=== PATIENT | female | born 1950 | race Caucasian/White ===

== ENCOUNTER 2025-03-09 09:19 | Emergency (ER) | payer MEDICARE, MEDICAID, SELFPAY ==
[2025-03-09] VITALS (7 sets, daily range): BP systolic 121–133; BP diastolic 47–93; BMI 22.9
--- NOTE | 2025-03-09 09:41 | ED.GENMED ---
History of Present Illness
<Rufus Isidro MD, Resident - Last Filed: 03/09/25 16:23>
General
Chief Complaint: Swelling
Source: patient and records
Exam Limitations: none
Time Seen by Provider: 03/09/25 09:36
Nursing documentation reviewed up to this point in time: agreed with
Travel History
Have you traveled to any high risk areas for coronavirus over the past 14 days?: No
Have you had any contact with someone who has COVID-19?: No
Do you have any symptoms of coronavirus? Fever > 100 degrees, chills, cough, shortness of breath, sore throat, loss of taste or smell, muscle aches, or headache?: No
History of Present Illness
History of Present Illness:
74-year-old female presenting from [facility] with complaints of pain and swelling of right leg and foot which started 3 to 4 days ago per patient. Patient states that pain only comes when she tries to move the leg or when someone touches it and
pain is 5�6/10. There is no alleviating factors. She said she walks with the help usually however for past 3 to 4 days she has that pain and developed swelling and the facility was concerned that she might have a clot in her leg.
Off note she is on a dialysis schedule Sunday and Sunday she did not get the dialysis today yet.
If applicable-neuro sx onset
Onset of symptoms known: Yes
Date of onset of symptoms: 03/06/25
Time pt last seen normal is known: No
Past History
<Rufus Isidro MD, Resident - Last Filed: 03/09/25 16:23>
Past History
ED Past Medical History: CAD, CHF, IDDM and Hypothyroidism
ED Past Surgical History: Cardiac (cardiac transplant 2016) and Other (Gallbladder, pacemaker, LVAD, heart transplant)
Patient has exhibited threatening behavior?: No
Social History
Tobacco: Non-smoker
Alcohol: None
Drug: None
Living: [facility]
Review of Systems
<Rufus Isidro MD, Resident - Last Filed: 03/09/25 16:23>
Review of Systems
Constitutional: Reports no symptoms
EENT: Reports no symptoms
Respiratory: Reports no symptoms
Cardiac: Reports no symptoms
ABD/GI: Reports no symptoms
Musculoskeletal: Reports muscle pain (Right lower leg) and muscle stiffness (Right lower leg)
Skin: Reports itching (Right lower leg)
Neurological: Reports no symptoms
Hematologic/Lymphatic: Reports no symptoms
Psychiatric: Reports no symptoms
Phy Exam
<Rufus Isidro MD, Resident - Last Filed: 03/09/25 16:23>
General Physical Exam
General Presentation: mild distress
General age: appears stated age
General Skin: warm
General Habitus: elderly
General Mental: alert
General Hydration: appears well hydrated
Cardiovascular Exam
Cardiovascular Exam: regular rate/rhythm and no murmur
Neurological Exam
Neurological Exam: alert, no sensory deficits and speech normal
Musculoskeletal Exam
Musculoskeletal Exam: other (Right leg swelling and erythema below knee. Pulses intact)
Scores
<Rufus Isidro MD, Resident - Last Filed: 03/09/25 16:23>
Heart Failure Risk
Heart Failure Risk Score: Not Applicable
Course
<Rufus Isidro MD, Resident - Last Filed: 03/09/25 16:23>
Orders/Labs/Results
Orders:
Orders
03/09/25 10:01
US Legs, Right [US Periph Venous LOWER Ext RT] Urgent
Comment:
Reason For Exam: Swelling + pain
03/09/25 10:24
CRP [C-Reactive Protein] Urgent
Complete Blood Count/With Diff Urgent
Comprehensive Metabolic Panel Urgent
ESR [Erythrocyte Sed Rate] Urgent
Abnormal Lab Results
03/09/25
10:24
RBC 3.97 L 10^6/uL
(4.20-5.40)
MCHC 31.5 L g/dL
(33.0-37.0)
RDW 16.2 H %
(11.5-14.5)
MPV 11.5 H fL
(7.4-10.4)
Absolute Lymphs (auto) 0.9 L 10^3/uL
(1.2-3.4)
Lymphocytes % 13.6 L %
(20.5-51.1)
Eosinophils % 9.1 H %
(0-6)
Potassium 5.2 H mmol/L
(3.5-5.1)
Carbon Dioxide 19 L mmol/L
(22-30)
BUN 84 H mg/dl
(7-17)
Creatinine 6.2 H* mg/dL
(0.6-1.0)
Calcium 7.8 L mg/dl
(8.4-10.2)
Alkaline Phosphatase 134 H U/L
(38-126)
C-Reactive Protein 15.00 H mg/L
(0.0-10.00)
03/09/25 10:24
03/09/25 10:24
Vital Signs
Initial and Last Documented VS:
Initial Vital Signs
Temp Pulse Resp BP Pulse Ox
97.9 F 85 20 133/87 97
03/09/25 09:21 03/09/25 09:21 03/09/25 09:21 03/09/25 09:21 03/09/25 09:21
Last Documented Vital Signs
Temp Pulse Resp BP Pulse Ox
98.5 F 75 16 121/74 100
03/09/25 10:38 03/09/25 14:01 03/09/25 10:38 03/09/25 14:01 03/09/25 12:00
<Denis Willoughby, DO - Last Filed: 03/09/25 13:39>
Orders/Labs/Results
Orders:
Orders
03/09/25 10:01
US Legs, Right [US Periph Venous LOWER Ext RT] Urgent
Comment:
Reason For Exam: Swelling + pain
03/09/25 10:24
CRP [C-Reactive Protein] Urgent
Complete Blood Count/With Diff Urgent
Comprehensive Metabolic Panel Urgent
ESR [Erythrocyte Sed Rate] Urgent
Abnormal Lab Results
03/09/25
10:24
RBC 3.97 L 10^6/uL
(4.20-5.40)
MCHC 31.5 L g/dL
(33.0-37.0)
RDW 16.2 H %
(11.5-14.5)
MPV 11.5 H fL
(7.4-10.4)
Absolute Lymphs (auto) 0.9 L 10^3/uL
(1.2-3.4)
Lymphocytes % 13.6 L %
(20.5-51.1)
Eosinophils % 9.1 H %
(0-6)
Potassium 5.2 H mmol/L
(3.5-5.1)
Carbon Dioxide 19 L mmol/L
(22-30)
BUN 84 H mg/dl
(7-17)
Creatinine 6.2 H* mg/dL
(0.6-1.0)
Calcium 7.8 L mg/dl
(8.4-10.2)
Alkaline Phosphatase 134 H U/L
(38-126)
C-Reactive Protein 15.00 H mg/L
(0.0-10.00)
03/09/25 10:24
03/09/25 10:24
Vital Signs
Initial and Last Documented VS:
Initial Vital Signs
Temp Pulse Resp BP Pulse Ox
97.9 F 85 20 133/87 97
03/09/25 09:21 03/09/25 09:21 03/09/25 09:21 03/09/25 09:21 03/09/25 09:21
Last Documented Vital Signs
Temp Pulse Resp BP Pulse Ox
98.5 F 75 16 121/74 100
03/09/25 10:38 03/09/25 14:01 03/09/25 10:38 03/09/25 14:01 03/09/25 12:00
<Rufus Isidro MD, Resident - Last Filed: 03/09/25 16:23>
MDM/Problems Addressed
Differential Diagnosis Includes:
DVT vs cellulitis vs less likely compartment syndrome
MDM/Problems Addressed:
Peripheral vascular ultrasound negative for DVT. Right femoral venous catheter in expected position. Labs with normal WBC 6 and normal ESR. CMP with potassium of 5.2 and creatinine of 6.2 with BUN 84. Patient gets routine dialysis Sunday
Sunday and Sunday she was scheduled for dialysis today. CRP is raised to 15. Unclear cause. She does not report any excessive pain. Pulses intact.
Given her schedule for dialysis today spoke with [facility] dialysis unit and they informed me they can do it today if the patient arrives by 3 PM. They do not do dialysis on Tuesdays.
Likely her swelling and pain is related to cellulitis of the right leg. Will prescribe Keflex upon discharge
<Rufus Isidro MD, Resident - Last Filed: 03/09/25 16:23>
*Radiology
Radiology exam reviewed: radiology read reviewed
*Pulse Oximetry
SaO2: 97
Oxygen Mode of Delivery: Room air
Patient hypoxic: no
*Critical Care Note
Total Time (30-74mins, 75-104mins- exclusive of procedures): Not Applicable
ED Attending Note
<Rufus Isidro MD, Resident - Last Filed: 03/09/25 16:23>
-
Portions of this chart may have been created with voice recognition software.� Occasional wrong word or��sound alike� substitutions may have occurred due to the inherent limitations of voice recognition software.
<Denis Willoughby, - Last Filed: 03/09/25 13:39>
ED Attending Note
Patient seen and examined by attending physician: Yes
I performed a history and physical exam of patient and discussed management with resident, I reviewed resident's note and agree with documented findings and plan of care.: Yes
ED Attending Note:
I have reviewed and agree with history and treatment plan by Rufus Isidro MD. My exam revealed 74-year-old female with right lower leg erythema and swelling. Likely cellulitis. Labs and ultrasound pending. Doppler pulses found and dorsalis
pedis posterior tibialis. Patient with mild right lower leg cellulitis. Treat with Keflex 250 mg daily, renally dosed. Stable for discharge to [facility] where she will dialysis today.
Discharge Plan
Departure
Patient Disposition: Halfway/SNF
Date of Disposition: 03/09/25
Time of Disposition: 12:50
Patient with high blood pressure during this ER visit?: Yes
Covid-19: Not Applicable
Discharge Problem:
Cellulitis
Instructions: Dependent Edema (DC), *CBC Heart Failure Instructions, BLOOD PRESSURE
Prescriptions:
New
cephalexin 250 mg tablet
250 mg PO DAILY Qty: 7 0RF
No Action
aspirin 81 MG tablet,delayed release (DR/EC)
81 mg PO DAILY
ferrous sulfate [FeroSul] 325 MG tablet
325 mg PO QPM
levothyroxine 125 MCG tablet
125 mcg PO DAILY
pravastatin 20 MG tablet
40 mg PO HS
multivitamin with folic acid [Tab-A-Henry] 1 TABLET tablet
1 tab PO DAILY
ropinirole 2 MG tablet
2 mg PO HS
acetaminophen [Tylenol] 325 mg Tablet
650 mg PO Q6HPRN PRN (Reason: MILD PAIN)
ammonium lactate 12 % Lotion
1 applic TOPICAL BID
loperamide 2 mg Capsule
2 mg PO Q6HPRN PRN (Reason: DAIRRHEA)
ondansetron HCl [Zofran] 4 mg Tablet
4 mg PO Q8HPRN PRN (Reason: NAUSEA)
midodrine 5 mg Tablet
5 mg PO TID
Tums 300 mg (750 mg) Tablet,Chewable
300 mg PO AC
Tums 300 mg (750 mg) Tablet,Chewable
600 mg PO HS
acetaminophen [Tylenol Arthritis] 650 mg Tablet Extended Release
650 mg PO Q8HPRN PRN (Reason: KNEE PAINS)
sirolimus 1 mg Tablet
1 mg PO HS
bisacodyl [Dulcolax (bisacodyl)] 10 mg Suppository
10 mg [place] DAILYPRN PRN (Reason: IF NO BM AFTR MOM)
omeprazole 20 mg Capsule,Delayed Release(Dr/Ec)
20 mg PO DAILY
bisacodyl [Dulcolax (bisacodyl)] 5 mg Tablet,Delayed Release (Dr/Ec)
5 mg PO DAILYPRN PRN (Reason: CONSTIPATION)
tacrolimus 0.5 mg Capsule
0.5 mg PO DAILY
cholecalciferol (vitamin D3) [Vitamin D3] 25 mcg (1,000 unit) Tablet
50 mcg PO DAILY
Entresto 24-26 mg Tablet
1 tab PO BID
calcium acetate 667 mg Tablet
667 mg PO AC
Referrals:
UNKNOWN,NO INTERVIEW [Family Provider]
Interventions
Interventions:
*Risk Screen - Suicide Last Done: 03/09/25 09:21
*General Assessment Last Done: 03/09/25 09:21
*Neglect/Abuse Screening Last Done: 03/09/25 09:21
*ED- Fall Risk Assessment Last Done: 03/09/25 10:39
*ED COVID-19 Vaccine History Last Done: 03/09/25 10:39
*Nursing Disposition Last Done: 03/09/25 13:55
ED- Cardiac Assessment Last Done: 03/09/25 10:39
ED- Pulmonary Assessment Last Done: 03/09/25 10:39
ED-Skin Assessment Last Done: 03/09/25 10:39
Discharge Date and Time
Discharge Date/Time: 03/09/25 14:12
Print Language: [place]
[2025-03-09 11:27] LABS: % Basophils 0.7 % (0-2); % Eosinophils 9.1 % (0-6); % Immature Granulocytes 0.3 % (0-0.5); % Lymphocytes 13.6 % (20.5-51.1); % Monocytes 8.1 % (1.7-9.3); % Neutrophils 68.2 % (42.2-75.2); Absolute Basophils 0.1 10^3/uL (0-0.2); Absolute Eosinophils 0.6 10^3/uL (0-0.7); Absolute Lymphocytes 0.9 10^3/uL (1.2-3.4); Absolute Monocytes 0.5 10^3/uL (0.1-0.6); Absolute Neutrophils 4.6 10^3/uL (1.4-6.5); Hemoglobin 12.3 g/dL (12.0-16.0); Mean Corp Hgb Conc. 31.5 g/dL (33.0-37.0); Mean Corpuscular Volume 98.2 fL (81.0-99.0); Mean Platelet Volume 11.5 fL (7.4-10.4); Nucleated Red Blood Cells % 0 %; Platelet Count 161 10^3/uL (130-400); Red Blood Cell Count 3.97 10^6/uL (4.20-5.40); Red Cell Dist. Width 16.2 % (11.5-14.5); White Blood Cell Count 6.7 10^3/uL (4.8-10.8)
[2025-03-09 12:00] LABS: ALT (SGPT) 18 U/L (0-35); AST (SGOT) 20 U/L (14-36); Albumin 4.1 g/dl (3.5-5.0); Alkaline Phosphatase 134 U/L (38-126); Blood Urea Nitrogen 84 mg/dl (7-17); Calcium 7.8 mg/dl (8.4-10.2); Carbon Dioxide 19 mmol/L (22-30); Chloride 103 mmol/L (98-107); Estimated Creatinine Clearance 7 ml/min; Glucose 83 mg/dl (70-99); Potassium 5.2 mmol/L (3.5-5.1); Sodium 139 mmol/L (135-145); Total Bilirubin 0.6 mg/dl (0.2-1.3); Total Protein 6.9 g/dl (6.3-8.2); eGFR 6.58
[2025-03-09 12:29] LABS: Erythrocyte Sed Rate 6 mm/hour (0-20)
--- NOTE | 2025-03-09 13:54 | EDRN ---
this RN called Theresa Duarte at [facility] at [phone] and spoke to Olivia at the nurses station and gave verbal report
--- NOTE | 2025-03-09 14:10 | EDRN ---
the pt had a bowel movement and this RN cleaned the pt up and placed a new covidian pad underneath the pt, this RN offered the pt food and the pt declined and stated that she wanted to eat when she got back to [place]
== END 2025-03-09 14:12 ==
LOC: EMR 09:19
PROVIDERS: EMERGENCY PHYSICIAN Emergency Medicine
DX: L03.115 Cellulitis of right lower limb (principal); I25.10 Atherosclerotic heart disease of native coronary artery without angina pectoris; I50.9 Heart failure, unspecified; E03.9 Hypothyroidism, unspecified; E11.9 Type 2 diabetes mellitus without complications; Z79.4 Long term (current) use of insulin; Z94.1 Heart transplant status; Z99.2 Dependence on renal dialysis
CPT/HCPCS: 99284; 80053; 85025; 85652; 86140; 93971

== ENCOUNTER 2025-03-20 16:29 | Inpatient (IN) | payer MEDICARE, MEDICAID, SELFPAY ==
[2025-03-20] VITALS (7 sets, daily range): BP systolic 101–150; BP diastolic 53–92; BMI 25.5
--- NOTE | 2025-03-20 12:01 | ED.GENMED ---
History of Present Illness
General
Chief Complaint: Skin Problem
Source: patient
Time Seen by Provider: 03/20/25 11:41
History of Present Illness
History of Present Illness:
Note:
CHIEF COMPLAINT(S)
Confusion and right lower extremity swelling, redness, pain, and blistering.
HISTORY OF PRESENT ILLNESS
The patient is a 74-year-old female with a Luan dialysis catheter in the right groin, presenting with confusion and a swollen, painful right lower extremity. She reports the leg has been swollen and painful for 'a good while' and has remained the
same for the past week without episodes of improvement. She denies any fever. There is associated redness and swelling, with a blister noted on the medial aspect of the right lower extremity. The patient experiences sensitivity to touch and warmth
in the affected area. The patient undergoes dialysis sessions on Sunday, Sunday, and Sunday.
ADDITIONAL HISTORY OBTAINED FROM SOURCES OTHER THAN THE PATIENT
According to the retirement records, the patient has experienced a change in mental status characterized by intermittent confusion and hallucinations. They also noted right lower extremity pain, redness, swelling, blisters, warmth to the touch,
and difficulty palpating pulse.
PHYSICAL EXAM
General: Awake, alert, slightly confused, no respiratory distress.
Skin: The right lower extremity shows swelling, redness most severe in the lower portion, warmth, and sensitivity to touch. A blister is noted on the medial aspect. There is pitting edema throughout the right lower extremity. HD catheter noted in R
groin.
Cardiovascular: Pulses are unable to be palpated in the right lower extremity.
Neuro: CN's intact. slightly confused.
PLAN
Evaluate the swelling, redness, warmth, and pain in the right lower extremity with appropriate imaging or tests to rule out potential causes such as deep vein thrombosis or infection.
Monitor the patient�s mental status and manage any causes of confusion.
Continue current dialysis schedule and monitor the status of the dialysis catheter site.
Review and adjust medications as necessary based on labs and clinical status.
DIFFERENTIAL DIAGNOSIS
The Differential Diagnosis includes, in no particular order and is not limited to:
1. Deep vein thrombosis
2. Cellulitis
3. Catheter-related infection
4. Chronic venous insufficiency
5. Lymphedema
6. Heart failure exacerbation
7. Peripheral artery disease
8. Erythema nodosum
9. Drug reaction
10. Necrotizing fasciitis
Disposition:
SUMMARY OF ENCOUNTER
A 74-year-old female with a history of heart transplant and diabetes presented to the emergency department with a red, swollen right lower extremity. She was recently started on antibiotics, but her symptoms persisted. She is afebrile, but given her
immunosuppressed and diabetic status, there is a concern for infection, particularly as the symptoms are on the same side as her dialysis catheter.
DISPOSITION
Admit
ASSESSMENT
The patient presents with symptoms concerning for infection, possibly cellulitis or an infection related to the dialysis catheter, given the persistent swelling and redness of the right lower extremity.
Old records reviewed
Ultrasound from March 09, 2025 showed no DVT.
EMERGENCY TREATMENTS ADMINISTERED
Intravenous vancomycin was administered for suspected infection.
MEDICAL DECISION MAKING
-Number and Complexity of Problems Addressed: Chronic conditions affecting care include heart transplant and diabetes mellitus.
-Differential Diagnosis: Cellulitis, catheter-related infection, chronic venous insufficiency, lymphedema, heart failure exacerbation, peripheral artery disease, erythema nodosum, drug reaction, necrotizing fasciitis.
-Data:
Category 1
Non-emergency department records reviewed, including outpatient and prior medical history.
Category 2
Clinical information obtained from independent historian(s) and external records.
-Risk:
Prescription medication was administered and prescribed due to the risk of infection given the patients immunosuppressed status. Admission was necessary to manage and closely monitor for potential complications.
DIAGNOSIS
- Infection associated with dialysis catheter, ICD-10: T82.7XXA
- Cellulitis, ICD-10: L03.115
Past History
Past History
ED Past Medical History: CAD, CHF, IDDM and Hypothyroidism
ED Past Surgical History: Cardiac (cardiac transplant 2016) and Other (Gallbladder, pacemaker, LVAD, heart transplant)
Patient has exhibited threatening behavior?: No
Social History
Tobacco: Non-smoker
Alcohol: None
Drug: None
Living: retirement
Phy Exam
Physical Exam
Physical Exam:
.
Course
Orders/Labs/Results
Orders:
Orders
03/20/25 11:47
Complete Blood Count/With Diff Urgent
Comprehensive Metabolic Panel Urgent
03/20/25 12:00
Lactic Acid Q4H
Comment: CANCEL 2nd LACTIC ACID IF 1st LACTIC ACID IS LESS THAN 2
03/20/25 12:30
Blood Culture Q30M
ELIZABETH Source: Blood/Venous
Specimen Description:
03/20/25 13:11
Blood Culture Q30M
ELIZABETH Source: Blood/Venous
Specimen Description:
03/20/25 14:06
Vancomycin 1 Gram/200 ml [Vancocin] 1 gram in 200 ml IV NOW
03/20/25 14:12
US Periph Venous LOWER Ext RT Urgent
Comment:
Reason For Exam: swelling
03/20/25 16:00
Lactic Acid Q4H
Comment: CANCEL 2nd LACTIC ACID IF 1st LACTIC ACID IS LESS THAN 2
Abnormal Lab Results
03/20/25
11:47
RBC 3.78 L 10^6/uL
(4.20-5.40)
Hgb 11.4 L g/dL
(12.0-16.0)
Hct 36.9 L %
(37.0-47.0)
MCHC 30.9 L g/dL
(33.0-37.0)
RDW 16.0 H %
(11.5-14.5)
MPV 10.8 H fL
(7.4-10.4)
Absolute Lymphs (auto) 1.0 L 10^3/uL
(1.2-3.4)
Absolute Monos (auto) 0.7 H 10^3/uL
(0.1-0.6)
Lymphocytes % 14.2 L %
(20.5-51.1)
Eosinophils % 6.2 H %
(0-6)
Carbon Dioxide 17 L mmol/L
(22-30)
BUN 55 H mg/dl
(7-17)
Creatinine 4.4 H* mg/dL
(0.6-1.0)
Calcium 7.9 L mg/dl
(8.4-10.2)
03/20/25 11:47
03/20/25 11:47
Vital Signs
Initial and Last Documented VS:
Initial Vital Signs
Temp Pulse Resp BP Pulse Ox
97.5 F 87 18 125/84 96
03/20/25 11:35 03/20/25 11:35 03/20/25 11:35 03/20/25 11:35 03/20/25 11:35
Last Documented Vital Signs
Temp Pulse Resp BP Pulse Ox
97.5 F 87 18 125/84 96
03/20/25 11:35 03/20/25 11:35 03/20/25 11:35 03/20/25 11:35 03/20/25 12:01
*Pulse Oximetry
SaO2: 96
Oxygen Mode of Delivery: Room air
Patient hypoxic: no
*Critical Care Note
Total Time (30-74mins, 75-104mins- exclusive of procedures): Not Applicable
ED Attending Note
-
Portions of this chart may have been created with voice recognition software.� Occasional wrong word or��sound alike� substitutions may have occurred due to the inherent limitations of voice recognition software.
Discharge Plan
Departure
Patient Disposition: Admit
Date of Disposition: 03/20/25
Time of Disposition: 14:05
Admit to: Med/Surg
Presentation/result/management discussed w/ accepting MD/DO: Hospitalist
Discharge Problem:
Cellulitis, immunosuppressed state
Prescriptions:
No Action
aspirin 81 MG tablet,delayed release (DR/EC)
81 mg PO DAILY
ferrous sulfate [FeroSul] 325 MG tablet
325 mg PO QPM
levothyroxine 125 MCG tablet
125 mcg PO DAILY
pravastatin 20 MG tablet
40 mg PO HS
multivitamin with folic acid [Tab-A-Henry] 1 TABLET tablet
1 tab PO DAILY
ropinirole 2 MG tablet
2 mg PO HS
acetaminophen [Tylenol] 325 mg Tablet
650 mg PO Q6HPRN PRN (Reason: MILD PAIN)
ammonium lactate 12 % Lotion
1 applic TOPICAL BID
loperamide 2 mg Capsule
2 mg PO Q6HPRN PRN (Reason: DAIRRHEA)
ondansetron HCl [Zofran] 4 mg Tablet
4 mg PO Q8HPRN PRN (Reason: NAUSEA)
midodrine 5 mg Tablet
5 mg PO TID
Tums 300 mg (750 mg) Tablet,Chewable
300 mg PO AC
Tums 300 mg (750 mg) Tablet,Chewable
600 mg PO HS
acetaminophen [Tylenol Arthritis] 650 mg Tablet Extended Release
650 mg PO Q8HPRN PRN (Reason: KNEE PAINS)
sirolimus 1 mg Tablet
1 mg PO HS
bisacodyl [Dulcolax (bisacodyl)] 10 mg Suppository
10 mg [place] DAILYPRN PRN (Reason: IF NO BM AFTR MOM)
omeprazole 20 mg Capsule,Delayed Release(Dr/Ec)
20 mg PO DAILY
bisacodyl [Dulcolax (bisacodyl)] 5 mg Tablet,Delayed Release (Dr/Ec)
5 mg PO DAILYPRN PRN (Reason: CONSTIPATION)
tacrolimus 0.5 mg Capsule
0.5 mg PO DAILY
cholecalciferol (vitamin D3) [Vitamin D3] 25 mcg (1,000 unit) Tablet
50 mcg PO DAILY
Entresto 24-26 mg Tablet
1 tab PO BID
calcium acetate 667 mg Tablet
667 mg PO AC
Referrals:
Francisco Pickard MD [Family Provider, Family Practice]
Interventions
Interventions:
*Risk Screen - Suicide Last Done: 03/20/25 11:36
*Neglect/Abuse Screening Last Done: 03/20/25 11:36
Discharge Date and Time
Print Language: SWAZI
[2025-03-20 12:04] LABS: Hematocrit 36.9 % (37.0-47.0); Hemoglobin 11.4 g/dL (12.0-16.0); Mean Corp Hgb Conc. 30.9 g/dL (33.0-37.0); Mean Corpuscular Volume 97.6 fL (81.0-99.0); Nucleated Red Blood Cells % 0 %; Platelet Count 182 10^3/uL (130-400); Red Cell Dist. Width 16.0 % (11.5-14.5)
[2025-03-20 12:32] LABS: ALT (SGPT) 14 U/L (0-35); AST (SGOT) 19 U/L (14-36); Albumin 4.0 g/dl (3.5-5.0); Alkaline Phosphatase 119 U/L (38-126); Blood Urea Nitrogen 55 mg/dl (7-17); Calcium 7.9 mg/dl (8.4-10.2); Carbon Dioxide 17 mmol/L (22-30); Chloride 107 mmol/L (98-107); Glucose 92 mg/dl (70-99); Potassium 5.0 mmol/L (3.5-5.1); Sodium 139 mmol/L (135-145); Total Protein 7.1 g/dl (6.3-8.2); eGFR 9.93
--- NOTE | 2025-03-20 15:35 | CM ---
CM reviewed chart and met with pt bedside in ED. Pt currently resides at [facility] since 03/06/25, was admitted from [facility].
Pt needs assistance with ADLs and personal care. [facility] bedbound[facility].
PCP: Francisco Pickard
Pharmacy: [facility]
CM will continue to follow for discharge planning needs.
[2025-03-20] MEDS: VANCOCIN 530 MG IV (16:16)
--- NOTE | 2025-03-20 17:14 | HPS.HSE ---
Addendum entered and electronically signed by Deuce Nation MD 03/20/25 21:58:
Attending Addendum-
I performed a history and physical exam of the patient and discussed his management with the resident. I reviewed the resident's note and agree with the documented findings and plan of care CC/HPI- Sent o ED from [facility] secondary to RLE
swelling redness and confusion prior to getting dialysis. S/P treatment of presumed cellulitis with Keflex after negative US for DVT on 03/09 in ED. Patient complains of mild pain in RLE. Very pleasant but poor historian. Denies fevers chills NV abd
pain urinary complaints. Full 12 point ROS reviewed and negative except as documented Exam- vitals reviewed in EMR GEN-NAD Heart 11/13 SM @ RUSB Lungs fine crackles at bases abd soft NT ND pos BS Ext RLE- red not warm pulses intact Right groin -
dialysis catheter in place Neuro AAO x 2
Plan:
# Right LE DVT- catheter associated
- RLE US-Nonocclusive thrombus is present within the right common femoral vein in the visualized profunda femoris vein. There is nonocclusive thrombus within the mid to distal right femoral vein.
-Nonocclusive thrombus within the right peroneal and posterior tibial veins.
-start hep gtt - monitor aPtt
-c/s IR for eval- will keep catheter in for now as this is patients only HD access
# ESRD
- MWF
-c/s nephro for eval
-missed HD 03/20
# H/O IDDM
- previous documentation with insulin on med list
- will need updated history and med list from facility
- check HBa1c
- start low dose SSI
# H/O Heart Transplant
- cont sirolimus and tacrolimus
- t/c checking levels after obtaining more info
# RLS- cont ropinirole
# Hypothyroidism- cont levothyroxine
# ?CHF- not in AE- cont Entresto- no previous ECHO in system
# CAD- cont asa statin
# GERD- cont omeprazole
DVTp-heparin
CODE DNR
[facility]
Patient consented to discuss, was alone, time spent explanation of advance directives, changes in health status, patient�s health care wishes if the patient becomes unable to make health decisions, goals of care, code status, and prognosis- 16
minutes
Time spent coordinating care, review of plan of care with resident, personally reviewed previous records in EMR, med rec, labs, radiology, d/w nursing, family total time documented is exclusive of any additional time listed that was spent in advance
care planning discussion -�75 minutes
Original Note:
Family Physician
-
Family Physician: Francisco Pickard MD
Chief Complaint
-
Right lower extremity pain
History of Present Illness
Patient presented to the emergency department with progressive pain and swelling of her right calf and foot. Patient states the pain and swelling has been ongoing intermittently for approximately 3 or 4 weeks. Patient is barely walking due to the
pain. The pain is limited to the patient's leg and does not radiate elsewhere. Patient [facility], but she is not certain. Patient denies any recent trauma, cuts, wounds, bug
bites on her right lower extremity.
Medical History
Past Medical History
Past Medical History: Reports CAD, CHF, Hypothyroidism, NIDDM and Renal Failure (HD MWF)
Past Surgical History: Reports Cardiac (Heart transplant (2017); pacemaker; LVAD) and Cholecystectomy
Social History
Tobacco: Non-smoker
Alcohol: Occasional (2-3 drinks per year)
Drug: None
Living: Retirement
Family History
Family History: Other (Heart failure-father)
Allergies / Home Medications
Allergies reflects when Allergies were last updated in [facility].
Home Medications with original date entered in [facility]
Allergy/Medication List:
Allergies
Allergy/AdvReac Type Severity Reaction Status Date / Time
MEERA Inhibitors Allergy Unknown Verified 03/20/25 14:08
Beta-Blockers Allergy Unknown Verified 03/20/25 14:08
(Beta-Adrenergic Bloc
carvedilol (From Coreg) Allergy Unknown Verified 03/20/25 14:08
hydralazine Allergy Unknown Verified 03/20/25 17:41
Home Medications
aspirin 81 mg tablet,delayed release 81 mg PO DAILY 06/07/19
ferrous sulfate 325 mg (65 mg iron) tablet (FeroSul) 325 mg PO QPM 06/07/19
levothyroxine 125 mcg tablet 125 mcg PO DAILY 06/07/19
multivitamin with folic acid 400 mcg tablet (Tab-A-Henry) 1 tab PO DAILY 06/07/19
pravastatin 20 mg tablet 40 mg PO HS 06/07/19
ropinirole 2 mg tablet 2 mg PO HS 06/07/19
acetaminophen 325 mg tablet (Tylenol) 650 mg PO Q6HPRN PRN MILD PAIN 03/09/25
acetaminophen 650 mg tablet,extended release 650 mg PO Q8HPRN PRN KNEE PAINS 03/09/25
ammonium lactate 12 % lotion 1 applic topical BID B/L FEET 03/09/25
bisacodyl 10 mg rectal suppository (Dulcolax (bisacodyl)) 10 mg MI DAILYPRN PRN IF NO BM AFTR MOM 03/09/25
bisacodyl 5 mg tablet,delayed release (Dulcolax (bisacodyl)) 5 mg PO DAILYPRN PRN CONSTIPATION 03/09/25
calcium acetate 667 mg tablet 667 mg PO AC 03/09/25
calcium carbonate (Tums) 300 mg PO AC 03/09/25
calcium carbonate (Tums) 600 mg PO HS 03/09/25
cholecalciferol (vitamin D3) 25 mcg (1,000 unit) tablet (Vitamin D3) 50 mcg PO DAILY 03/09/25
loperamide 2 mg capsule 2 mg PO Q6HPRN PRN DAIRRHEA 03/09/25
midodrine 5 mg tablet 5 mg PO TID 03/09/25
omeprazole 20 mg capsule,delayed release 20 mg PO DAILY 03/09/25
ondansetron HCl 4 mg tablet 4 mg PO Q8HPRN PRN NAUSEA 03/09/25
sacubitril 24 mg-valsartan 26 mg tablet (Entresto) 1 tab PO BID 03/09/25
sirolimus 1 mg tablet 1 mg PO HS 03/09/25
tacrolimus 0.5 mg capsule, immediate-release 0.5 mg PO DAILY 03/09/25
Review of Systems
-
Constitutional: Denies Fever, Fatigue or Chills
EENT: Reports No Symptoms
Respiratory: Denies Trouble Breathing
Cardiac: Denies Chest Pain, Palpitations or Syncope
Abdomen/GI: Reports Diarrhea (Chronic); Denies Abdominal Pain, Nausea or Vomiting
: Reports No Symptoms
Musculoskeletal: Reports Edema (Swelling in right lower extremity)
Neurological: Denies Headache, Weakness or Numbness
Physical Exam
Vital Signs
Vital Signs
Temp Pulse Resp BP Pulse Ox
97.5 F 80 17 119/74 97
03/20/25 11:35 03/20/25 14:00 03/20/25 14:00 03/20/25 14:00 03/20/25 14:00
Physical Exam
General: No Apparent Distress and Comfortable
HEENT: NormoCephalic and Atraumatic
Respiratory: Non Labored Respirations; No Wheezes or Crackles
Cardiac: S1/S2, Regular Rhythm, Peripheral Edema (Right lower extremity edematous, erythematous, tense below the knee) and Other (Femoral dialysis catheter in place on right thigh); No Murmur, Rub or Gallop
GI: Soft, Non Tender and Normal Bowel Sounds
Musculoskeletal: No Cyanosis
Skin: Other
Neuro: Awake and Oriented (Oriented to person and time, but not to place)
Psych: Calm
Laboratory Results
-
03/20/25 11:47
03/20/25 11:47
Laboratory Results
Lactic Acid 1.1 mmol/L (0.7-2.0) 03/20/25 16:04
Total Bilirubin 0.7 mg/dl (0.2-1.3) 03/20/25 11:47
AST 19 U/L (14-36) 03/20/25 11:47
ALT 14 U/L (0-35) 03/20/25 11:47
Alkaline Phosphatase 119 U/L (38-126) 03/20/25 11:47
Impression/Plan
-
#Right lower extremity DVT
- RLE venous duplex ultrasound (03/20): Nonocclusive right DVT
- Heparin gtt
- Vancomycin started then discontinued, as concern for cellulitis is low based on ultrasound and physical exam
- Lactate: Pending
- Blood cultures: Pending
- Monitor temperature curve, WBCs
#ESRD
- HD MWF; patient missed regular Sunday session today
- Plan for HD tomorrow via right groin catheter currently in place
- Per IR, preserve catheter access in right groin despite RLE DVT, if possible, as patient's other veins may be insufficient for catheter placement
- C/W midodrine
- IR, nephrology following
#Heart failure s/p heart transplant
-C/W sirolimus, tacrolimus for immunosuppression
-C/W sacubitril/valsartan
- No clinical signs of heart failure currently
#CAD
- C/W aspirin, pravastatin
#Hypothyroidism
- C/W levothyroxine
#Restless leg syndrome
-C/W ropinirole
#Anemia
- Hgb 11.4
- C/W ferrous sulfate
- No signs of active bleeding
- Monitor H&H
GI prophylaxis: Pantoprazole
CODE STATUS: DNR/DNI
[2025-03-20] MEDS: HEPARIN 5400 UNITS IV (18:17)
[2025-03-20] MEDS: FEOSOL 325 MG PO (18:17)
--- NOTE | 2025-03-20 18:28 | W.CON.NEPH ---
Consultation
-
Date/Time Consultation Requested: 03/20/25 1735
Date/Time Consultation Performed: 03/20/25 1800
Requesting Provider: Lai Aguirre
Performing Provider: Annie Smith
Reason for Consultation: ESRD
Medical History
-
Chief Complaint: leg edema and redness
History of Present Illness:
74y/o F with PMH of ESRD on HD MWF at [facility] through right femoral CVC HD catheter for last 1yr due to lack of access, heart tranp;snt on IS on sirolimus, tac, Entresto, hypotension on midodrine, hypothyroidism on levothyroxine,
hyperphosphatemia on calcium acetate who presented to the emergency department with progressive pain and swelling of her right calf and foot. She was started on keflex for cellulitis but negative for DVT on 03/09. Pt is baseline confusion hence
history is limited. Reportedly her redness was worse with edema. In ER she found to have non occlusive DVT of right leg in the extremity where she had femoral dialysis catheter.Nephrology asked for HD needs as she missed HD today. No reported
fevers, cp or sob, no abd pain. no n/v.
Past Medical History
CAD, Hypothyroidism, NIDDM, ESRD (HD MWF), cardiomyopathy s/p heart transplant, hyperphosphatemia, hypotension on midodrine, GERD, RLS
Past Surgical History: Other (Heart transplant (2017); pacemaker; LVAD and Cholecystectomy)
Social History
Tobacco: Former Smoker
Alcohol: Occasional
Drug: None
Living: Retirement
Family History
Family History: Not Pertinent
Allergies / Home Medications
Allergy/AdvReac Type Severity Reaction Status Date / Time
MEERA Inhibitors Allergy Unknown Verified 03/20/25 14:08
Beta-Blockers Allergy Unknown Verified 03/20/25 14:08
(Beta-Adrenergic Bloc
carvedilol (From Coreg) Allergy Unknown Verified 03/20/25 14:08
hydralazine Allergy Unknown Verified 03/20/25 17:41
�Medication �Instructions �Recorded �Confirmed �Type
aspirin 81 mg tablet,delayed 81 mg PO DAILY 06/07/19 03/20/25 History
release
ferrous sulfate 325 mg (65 mg 325 mg PO QPM 06/07/19 03/20/25 History
iron) tablet (FeroSul)
levothyroxine 125 mcg tablet 125 mcg PO DAILY 06/07/19 03/20/25 History
multivitamin with folic acid 400 1 tab PO DAILY 06/07/19 03/20/25 History
mcg tablet (Tab-A-Henry)
pravastatin 20 mg tablet 40 mg PO HS 06/07/19 03/20/25 History
ropinirole 2 mg tablet 2 mg PO HS 06/07/19 03/20/25 History
acetaminophen 325 mg tablet 650 mg PO Q6HPRN PRN MILD PAIN 03/09/25 03/20/25 History
(Tylenol)
acetaminophen 650 mg 650 mg PO Q8HPRN PRN KNEE PAINS 03/09/25 03/20/25 History
tablet,extended release
ammonium lactate 12 % lotion 1 applic topical BID B/L FEET 03/09/25 03/20/25 History
bisacodyl 10 mg rectal suppository 10 mg NC DAILYPRN PRN IF NO BM 03/09/25 03/20/25 History
(Dulcolax (bisacodyl)) AFTR MOM
bisacodyl 5 mg tablet,delayed 5 mg PO DAILYPRN PRN CONSTIPATION 03/09/25 03/20/25 History
release (Dulcolax (bisacodyl))
calcium acetate 667 mg tablet 667 mg PO AC 03/09/25 03/20/25 History
calcium carbonate (Tums) 300 mg PO AC 03/09/25 03/20/25 History
calcium carbonate (Tums) 600 mg PO HS 03/09/25 03/20/25 History
cholecalciferol (vitamin D3) 25 50 mcg PO DAILY 03/09/25 03/20/25 History
mcg (1,000 unit) tablet (Vitamin
D3)
loperamide 2 mg capsule 2 mg PO Q6HPRN PRN DAIRRHEA 03/09/25 03/20/25 History
midodrine 5 mg tablet 5 mg PO TID 03/09/25 03/20/25 History
omeprazole 20 mg capsule,delayed 20 mg PO DAILY 03/09/25 03/20/25 History
release
ondansetron HCl 4 mg tablet 4 mg PO Q8HPRN PRN NAUSEA 03/09/25 03/20/25 History
sacubitril 24 mg-valsartan 26 mg 1 tab PO BID 03/09/25 03/20/25 History
tablet (Entresto)
sirolimus 1 mg tablet 1 mg PO HS 03/09/25 03/20/25 History
tacrolimus 0.5 mg capsule, 0.5 mg PO DAILY 03/09/25 03/20/25 History
immediate-release
Review of Systems
-
Unable to obtain full review of systems at this time due to: Dementia
Physical Exam
Vital Signs
Vital Signs
Temp Pulse Resp BP Pulse Ox
97.9 F 86 17 144/92 97
03/20/25 17:55 03/20/25 18:14 03/20/25 17:55 03/20/25 18:14 03/20/25 17:55
Lab Results
WBC 7.3 10^3/uL (4.8-10.8) 03/20/25 11:47
RBC 3.78 10^6/uL (4.20-5.40) L 03/20/25 11:47
Hgb 11.4 g/dL (12.0-16.0) L 03/20/25 11:47
Hct 36.9 % (37.0-47.0) L 03/20/25 11:47
Plt Count 182 10^3/uL (130-400) 03/20/25 11:47
Sodium 139 mmol/L (135-145) 03/20/25 11:47
Potassium 5.0 mmol/L (3.5-5.1) 03/20/25 11:47
Chloride 107 mmol/L (98-107) 03/20/25 11:47
Carbon Dioxide 17 mmol/L (22-30) L 03/20/25 11:47
BUN 55 mg/dl (7-17) H 03/20/25 11:47
Creatinine 4.4 mg/dL (0.6-1.0) H* 03/20/25 11:47
eGFR 9.93 03/20/25 11:47
Glucose 92 mg/dl (70-99) 03/20/25 11:47
Calcium 7.9 mg/dl (8.4-10.2) L 03/20/25 11:47
Albumin 4.0 g/dl (3.5-5.0) 03/20/25 11:47
Physical Exam
General: Awake, Alert, Oriented, No Distress and Nontoxic
HEENT: EOMI, Anicteric and Facial Symmetry
Respiratory: Crackels, Normal Excursion and Nonlabored Respirations
Cardiac: S1/S2 and Regular Rate/Rhythm
Breast: Deferred by me
Abdomen: Soft, Nontender and Nondistended
Musculoskeletal: Edema (right leg in dressing, 3+edema, erythema lower leg. right femoral line site is constance with out redness and edema)
Skin: Other (see above)
Neuro: Nonfocal/Grossly Intact
Psych: Appropriate
Vascular Access: CVC
Data Reviewed
-
Radiology: Report Reviewed by me, Discussed with Physician, Discussed with Nurse and Discussed with Patient
Labs: Labs Reviewed by me, Discussed with Nurse and Discussed with Patient
Assessment/Plan
-
IMP:
Right LE DVT- catheter associated
Nonocclusive thrombus is present within the right common femoral vein in the visualized profunda femoris vein. There is nonocclusive thrombus within the mid to distal right femoral vein. Nonocclusive thrombus within the right peroneal and posterior
tibial veins.
ESRD [facility]- MWF
H/O IDDM
cardiomyopathy H/O Heart Transplant 2016
hYpotension on midodrine
RLS
Hypothyroidism
CAD
GERD
HLD
PLan:
A/w right leg edema and redness noted non occlusive DVT
missed HD today
metabolic parametrs acceptable
hemodynamically stable too
will arrange HD tomorrow
given that right femoral HD catheter in IVC and no clot close to the catheter
plan made to keep catheter and continue AC since she has poor access
CVC checked today and is patent
resume phos binders and midodrine
d/w pt
d/w primary and IR
[2025-03-20] MEDS: TUMS EX (EXTRA STRENGTH) CHEWABLE TABLET 300 MG PO (19:19)
[2025-03-20] MEDS: LAC HYDRIN, AM LACTIN LOTION 1 APPLIC TOPICAL (19:19)
[2025-03-20] MEDS: ENTRESTO 24 MG/26 MG 1 TAB PO (19:21)
--- NOTE | 2025-03-20 19:37 | PTCARENOTE ---
received pt to 3W from ED. VSS, oriented to room, bed in lowest position, call pagan within reach, plan of care ongoing
[2025-03-20 20:00] LABS: APTT > 200 Sec (23.4-35.0)
--- NOTE | 2025-03-20 20:47 | PTCARENOTE ---
Baseline PTT drawn by IV team team after heparin bolus was administered. Heparin infusion was not started. PTT > 200. Inez Bal POUNCING MACHINE OPERATOR notified. Due to difficulty obtaining labs with limited access, plan to place midline. IV team at bedside at this
time to place midline and will obtain PTT. Will wait for results and notify POUNCING MACHINE OPERATOR prior to starting heparin infusion.
[2025-03-20 21:42] LABS: APTT > 200 Sec (23.4-35.0)
--- NOTE | 2025-03-20 21:50 | PTCARENOTE ---
Repeat PTT > 200 at 2105. Inez Bal 3RD GRADE READING TEACHER aware and plan to recheck PTT at 2305. Heparin infusion not started at this time.
[2025-03-20] MEDS: REQUIP 2 MG PO (22:31)
[2025-03-20] MEDS: PRAVACHOL 40 MG PO (22:31)
[2025-03-20] MEDS: RAPAMUNE 1 MG PO (22:31)
[2025-03-20] MEDS: TUMS EX (EXTRA STRENGTH) CHEWABLE TABLET 600 MG PO (22:31)
[2025-03-20 22:54] LABS: Glucose - Point of Care 69 mg/dl (70-99)
[2025-03-20 23:10] LABS: Glucose - Point of Care 78 mg/dl (70-99)
[2025-03-20 23:26] LABS: APTT 40.3 Sec (23.4-35.0)
--- NOTE | 2025-03-20 23:46 | PTCARENOTE ---
Accucheck 69, apple juice given. Rechecked accucheck = 78. Will follow hypoglycemic protocol. Pt noted to be dyspneic on exertion with occasional non productive cough. States she does have cough at home, but cough and dyspnea tonight new since
change of shift. 95% on room air. BP 101/53. Lungs diminished with crackles in bases. Pt alert and pleasant. No chest pain reported. Inez Bal, LOUVER DOOR ASSEMBLER aware. IV team at bedside to assess midline due to increased oozing at site.
--- NOTE | 2025-03-20 23:52 | VATNOTE ---
New right ML site saturating gauze dressing. Old dressing removed, site still actively bleeding. Site cleaned with cholaprep, quikclot and sterile 2X2 applied. Dressing wrapped with olivia wrap. Primary RN to remove in about 1 hour. Will continue to
monitor.
[2025-03-21] VITALS (7 sets, daily range): BP systolic 83–142; BP diastolic 40–90; BMI 23.5
[2025-03-21] MEDS: HEPARIN 25000 UNITS/250 ML IV (00:15)
--- NOTE | 2025-03-21 00:20 | PTCARENOTE ---
PTT 40.3. Per BINDER LOCKSTITCH, start heparin gtt at start rate, no bolus. Heparin gtt started at 0015 at ordered infusion rate of 12 mL/hr. Next PTT ordered for 0615, per protocol.
[2025-03-21 01:24] LABS: Glucose - Point of Care 73 mg/dl (70-99)
--- NOTE | 2025-03-21 01:52 | VATNOTE ---
Right ML dressing saturated with blood after olivia was removed. Dressing removed, site actively bleeding. Site cleaned, surgifoam placed with sterile gauze, dressing and olivia wrap placed over dressing. Will continue to monitor.
[2025-03-21 03:24] LABS: Glucose - Point of Care 80 mg/dl (70-99)
--- NOTE | 2025-03-21 04:04 | VATNOTE ---
Right ML dressing saturated with blood again. Dressing removed, site cleaned, surgifoam placed with sterile 4x4's, olivia wrap applied over dressing. Will continue to monitor.
[2025-03-21] MEDS: SYNTHROID 125 MCG PO (05:54)
[2025-03-21 06:59] LABS: Hematocrit 34.2 % (37.0-47.0); Hemoglobin 10.7 g/dL (12.0-16.0); Mean Corp Hgb Conc. 31.3 g/dL (33.0-37.0); Mean Corpuscular Volume 97.2 fL (81.0-99.0); Nucleated Red Blood Cells % 0 %; Platelet Count 168 10^3/uL (130-400); Red Cell Dist. Width 16.0 % (11.5-14.5)
[2025-03-21 07:00] LABS: APTT 112.0 Sec (23.4-35.0)
[2025-03-21 07:07] LABS: Glucose - Point of Care 89 mg/dl (70-99)
[2025-03-21 07:56] LABS: ALT (SGPT) 13 U/L (0-35); AST (SGOT) 16 U/L (14-36); Albumin 3.5 g/dl (3.5-5.0); Alkaline Phosphatase 113 U/L (38-126); Blood Urea Nitrogen 61 mg/dl (7-17); Calcium 7.7 mg/dl (8.4-10.2); Carbon Dioxide 14 mmol/L (22-30); Chloride 108 mmol/L (98-107); Estimated Creatinine Clearance 8 ml/min; Glucose 69 mg/dl (70-99); Potassium 5.0 mmol/L (3.5-5.1); Sodium 138 mmol/L (135-145); Total Protein 6.4 g/dl (6.3-8.2); eGFR 8.52
[2025-03-21] MEDS: TYLENOL 650 MG PO ×2 (08:10→21:05)
[2025-03-21 10:16] LABS: Glycohemoglobin (HgbA1c) 4.4 % (4.0-5.6)
--- NOTE | 2025-03-21 10:22 | PTCARENOTE ---
Pt with coarse BS no sob prior to breakfast. PT took medications without any difficulty no coughing noted. PT sat up for breakfast, she fed her self and now pt with irregular breathing 16-18 per minutes with a wet sound, expiratory wheeze noted
LUE and coarse in upper anterior lung hudson and crackles in posterior base. md aware, pt to be ordered speech consult pulse ox 95 % on room air.
[2025-03-21] MEDS: PROTONIX 40 MG PO (10:29)
[2025-03-21] MEDS: ASPIR LOW (ENTERIC COATED) 81 MG PO (10:29)
[2025-03-21] MEDS: TUMS EX (EXTRA STRENGTH) CHEWABLE TABLET 300 MG PO ×2 (10:29→16:55)
[2025-03-21] MEDS: PROGRAF 0.5 MG PO (10:29)
[2025-03-21] MEDS: TUMS EX (EXTRA STRENGTH) CHEWABLE TABLET PO ×2 (10:29→10:32)
[2025-03-21] MEDS: LAC HYDRIN, AM LACTIN LOTION 1 APPLIC TOPICAL ×2 (10:30→21:05)
[2025-03-21] MEDS: ENTRESTO 24 MG/26 MG PO (10:30)
--- NOTE | 2025-03-21 11:09 | VATNOTE ---
Patient's RUE midline site continues to ooze blood. Saturated a dressing at 130am, 4am, 6am, and 11am. Redressed notified MD Hong.
[2025-03-21 11:31] LABS: Glucose - Point of Care 541 mg/dl (70-99)
[2025-03-21 11:37] LABS: Glucose - Point of Care 104 mg/dl (70-99)
--- NOTE | 2025-03-21 11:41 | PTCARENOTE ---
PT ate breakfast that included bagel with grape jelly. pt fed her self and grape jelly was all over her fingers. bs checked on right hand showed 541. I rechecked her sugar after washing her hands pretty good and was 104 on left hand. To ensure
accuracy, i will recheck her sugar at 1230.
[2025-03-21 12:26] LABS: Glucose - Point of Care 136 mg/dl (70-99)
--- NOTE | 2025-03-21 13:35 | VATNOTE ---
11 am dressing remains clean and dry without signs of active bleeding.
[2025-03-21 13:42] LABS: Hematocrit 32.7 % (37.0-47.0); Hemoglobin 10.6 g/dL (12.0-16.0)
--- NOTE | 2025-03-21 13:46 | W.PN.HOSP.TC ---
Today's Communication/Plan
-
Continue heparin drip for treatment of right lower extremity DVT.
Hemodialysis planned to be completed this afternoon, as patient missed regular Sunday session yesterday.
Monitor H&H and midline catheter site to evaluate progression of anemia and assess for bleeding.
Assessment / Plan
Assessment / Plan
#Right lower extremity DVT
RLE venous duplex ultrasound (03/20): Nonocclusive right DVT in femoral, peroneal, tibial veins
Continue heparin gtt
Vancomycin started then discontinued, as concern for cellulitis is low based on ultrasound and physical exam
Lactate: 1.1 (WNL)
Blood cultures: NGTD
Monitor temperature curve, WBCs - afebrile, no leukocytosis today
#ESRD
Patient regularly undergoes HD MWF
Plan for HD this afternoon via right femoral CVC currently in place
Per IR, preserve right femoral CVC despite RLE DVT, if possible, as patient's other veins may be insufficient for catheter placement
Continue midodrine
IR, nephrology following
#Heart failure s/p heart transplant
Continue sirolimus, tacrolimus for immunosuppression
Continue sacubitril/valsartan
No clinical signs of heart failure currently
#CAD
Continue aspirin, pravastatin
#Hypothyroidism
Continue levothyroxine
#Restless leg syndrome
Continue ropinirole
#Anemia
Hgb 10.6 this afternoon, slightly downtrending from 11.4 yesterday and 10.7 this morning
Bright red blood was observed under the patient's midline catheter dressing, without pulsation or oozing
If hemoglobin continues to downtrend, consider holding anticoagulation
Monitor H&H following HD this afternoon
Continue ferrous sulfate
Diet: Regular solids and thin liquids, per speech therapy
GI prophylaxis: Pantoprazole
CODE STATUS: DNR/DNI
Anticipated Discharge: 24 - 48 hours
Subjective/Interval History
-
Date of Service: March 21, 2025
Patient is seen in the bedside on hospital day #2. Nursing reports that the patient had an episode of hypotension (83/40) this morning, which was treated with midodrine, and the patient's blood pressure subsequently increased (98/63). Patient
reports that she feels 'real good.'
Objective Data
-
Labs:
Laboratory Results
03/21/25 03/21/25
06:30 13:28
WBC 6.2
Hgb 10.7 L 10.6 L
Hct 34.2 L 32.7 L
Plt Count 168
APTT 112.0 H Pending
Sodium 138
Potassium 5.0
Chloride 108 H
Carbon Dioxide 14 L*
BUN 61 H
Creatinine 5.0 H*
Glucose 69 L
Calcium 7.7 L
Total Bilirubin 0.7
AST 16
ALT 13
Alkaline Phosphatase 113
Vital Signs:
Vital Signs
Temp Pulse Resp BP Pulse Ox
97.6 F 85 15 118/58 94
03/21/25 07:23 03/21/25 07:23 03/21/25 07:23 03/21/25 12:27 03/21/25 07:23
I&O
03/20/25 03/21/25 03/22/25
06:59 06:59 06:59
Intake Total 240 / 240
Balance 240 / 240
Review of Systems
-
History Source: Patient
Constitutional: Denies Fever, Fatigue or Chills
EENT: Reports No Symptoms Reported
Respiratory: Denies Cough or Trouble Breathing
Cardiac: Denies Chest Pain, Palpitations or Syncope
Abdomen/GI: Denies Abdominal Pain, Nausea, Vomiting or Diarrhea
Musculoskeletal: Reports Edema and Other (Denies pain in her right lower extremity)
Physical Exam
-
General: No Apparent Distress and Comfortable
HEENT: Normocephalic and Atraumatic
Cardiac: Regular Rhythm, S1/S2 and Other (Red blood visualized under the dressing around her midline catheter on right upper extremity); Negative Murmur, Rub, Gallop, Tachycardic or Bradycardic
GI: Soft, Nontender and Normal Bowel Sounds
Musculoskeletal: Edema, Right Lower Extrem (Right lower extremity is edematous, erythematous, and tense in the calf and foot, though it appears slightly improved from yesterday; DP pulses soft but palpable in bilateral lower extremities)
Skin: Warm and Dry
Neuro: Awake and Oriented (Oriented to person and place, but not to time)
Psych: Calm
--- NOTE | 2025-03-21 14:21 | PTOTSP ---
Speech Therapy Evaluation:
Pt with chronic risk factors of dysphagia including cardiac hx, however no acute risk factors. Pt reported occasional globus sensation, which alleviates with 'slowing down.' Other than this, she reported no difficulty swallowing or history of
pneumonias. Oral phase mildly prolonged, likely related to mostly edentulous state and not true oral dysphagia. No overt s/sx of aspiration across trials. WBC WNL, pt on room air, and afebrile. No CXR completed this admission.
Recommend:
1. Continue regular solids and thin liquids
2. Meds as tolerated
3. General aspiration and reflux precautions
4. SCREENER AND BLENDER to follow to monitor tolerance of diet and provide education in aspiration/reflux precautions
[2025-03-21 14:29] LABS: APTT 168.4 Sec (23.4-35.0)
--- NOTE | 2025-03-21 15:13 | W.PN.HOSP.TC ---
Today's Communication/Plan
-
Continue heparin drip for treatment of right lower extremity DVT.
Hemodialysis planned for this afternoon, as patient missed regularly scheduled Sunday session yesterday.
Continue to monitor midline catheter site for bleeding in the setting of anemia. Monitor H&H.
Assessment / Plan
Assessment / Plan
#Right lower extremity DVT
RLE venous duplex ultrasound (03/20): Nonocclusive right DVT in femoral, peroneal, tibial veins
Continue heparin gtt
Vancomycin started then discontinued, as concern for cellulitis is low based on ultrasound and physical exam
Lactate: 1.1 (WNL)
Blood cultures: NGTD
Monitor temperature curve, WBCs - afebrile, no leukocytosis today
#ESRD
Patient regularly undergoes HD MWF
Plan for HD this afternoon via right femoral CVC currently in place
Per IR, preserve right femoral CVC despite RLE DVT, if possible, as patient's other veins may be insufficient for catheter placement
Continue midodrine
IR, nephrology following
#Heart failure s/p heart transplant
Continue sirolimus, tacrolimus for immunosuppression
Continue sacubitril/valsartan
No clinical signs of heart failure currently
#CAD
Continue aspirin, pravastatin
#Hypothyroidism
Continue levothyroxine
#Restless leg syndrome
Continue ropinirole
#Anemia
Hgb 10.6 this afternoon, slightly downtrending from 11.4 yesterday and 10.7 this morning
Bright red blood was observed under the patient's midline catheter dressing, without pulsation or oozing
If hemoglobin continues to downtrend, consider holding anticoagulation
Monitor H&H, transfuse for Hgb <7
Continue ferrous sulfate
Diet: Regular solids and thin liquids, per speech therapy
GI prophylaxis: Pantoprazole
CODE STATUS: DNR/DNI
Anticipated Discharge: 24 - 48 hours
Subjective/Interval History
-
Date of Service: March 21, 2025
Objective Data
-
Labs:
Laboratory Results
03/21/25 03/21/25
06:30 13:28
WBC 6.2
Hgb 10.7 L 10.6 L
Hct 34.2 L 32.7 L
Plt Count 168
APTT 112.0 H 168.4 H*
Sodium 138
Potassium 5.0
Chloride 108 H
Carbon Dioxide 14 L*
BUN 61 H
Creatinine 5.0 H*
Glucose 69 L
Calcium 7.7 L
Total Bilirubin 0.7
AST 16
ALT 13
Alkaline Phosphatase 113
Vital Signs:
Vital Signs
Temp Pulse Resp BP Pulse Ox
97.6 F 54 15 99/90 96
03/21/25 15:06 03/21/25 15:06 03/21/25 15:06 03/21/25 15:06 03/21/25 15:06
I&O
03/20/25 03/21/25 03/22/25
06:59 06:59 06:59
Intake Total 240 / 240
Balance 240 / 240
--- NOTE | 2025-03-21 16:26 | W.PN.NEPH.HD ---
Assessment
-
pt seen during HD
vitals stable
heparin gtt for DVT
left UE AVG+thrill-check US
reportedly was clotting and non function in the past per daughter
CVC functions fine, no need to remove the catheter as it is away from DVT
Progress Note - Hemodialysis
-
Date of Service: March 21, 2025
Duration: 30 minutes and 3 hours
Potassium Bath: 2
Calcium Bath: 2.5
Opti-Dialyzer: 160
Ultrafiltration: Other (1-2kg)
Blood Flow: 400
Dialysate Flow: 600
Heparin: no
EPO: no
[2025-03-21 16:30] LABS: Glucose - Point of Care 98 mg/dl (70-99)
[2025-03-21] MEDS: FEOSOL 325 MG PO (16:55)
[2025-03-21 18:02] LABS: Glucose - Point of Care 89 mg/dl (70-99)
[2025-03-21] MEDS: TUMS EX (EXTRA STRENGTH) CHEWABLE TABLET 600 MG PO (20:58)
[2025-03-21] MEDS: REQUIP 2 MG PO (20:58)
[2025-03-21] MEDS: RAPAMUNE 1 MG PO (20:58)
[2025-03-21] MEDS: PRAVACHOL 40 MG PO (20:58)
[2025-03-21] MEDS: ENTRESTO 24 MG/26 MG 1 TAB PO (20:59)
[2025-03-21 21:26] LABS: Glucose - Point of Care 191 mg/dl (70-99)
--- NOTE | 2025-03-21 21:31 | VATNOTE ---
Blood beginning to seep through gauze on right ML. Primary RN applied olivia wrap. Will continue to monitor.
[2025-03-21 21:55] LABS: APTT 130.2 Sec (23.4-35.0)
[2025-03-22] VITALS (7 sets, daily range): BP systolic 87–128; BP diastolic 36–60; BMI 22.9
[2025-03-22] MEDS: HEPARIN 25000 UNITS/250 ML IV (02:39)
[2025-03-22 04:21] LABS: Hematocrit 31.4 % (37.0-47.0); Hemoglobin 10.1 g/dL (12.0-16.0); Mean Corp Hgb Conc. 32.2 g/dL (33.0-37.0); Mean Corpuscular Volume 95.2 fL (81.0-99.0); Nucleated Red Blood Cells % 0 %; Platelet Count 157 10^3/uL (130-400); Red Cell Dist. Width 15.9 % (11.5-14.5)
[2025-03-22 04:31] LABS: APTT 54.1 Sec (23.4-35.0)
[2025-03-22] MEDS: HEPARIN 5400 UNITS IV (04:39)
[2025-03-22 04:45] LABS: ALT (SGPT) 12 U/L (0-35); AST (SGOT) 15 U/L (14-36); Albumin 3.2 g/dl (3.5-5.0); Alkaline Phosphatase 96 U/L (38-126); Blood Urea Nitrogen 34 mg/dl (7-17); Calcium 7.9 mg/dl (8.4-10.2); Carbon Dioxide 25 mmol/L (22-30); Chloride 107 mmol/L (98-107); Estimated Creatinine Clearance 14 ml/min; Glucose 61 mg/dl (70-99); Potassium 3.9 mmol/L (3.5-5.1); Sodium 138 mmol/L (135-145); Total Protein 5.9 g/dl (6.3-8.2); eGFR 15.11
[2025-03-22] MEDS: SYNTHROID 125 MCG PO (05:50)
[2025-03-22 08:03] LABS: Glucose - Point of Care 75 mg/dl (70-99)
--- NOTE | 2025-03-22 08:58 | W.PN.HOSP.TC ---
Today's Communication/Plan
-
Continue heparin drip for RLE DVT until this evening, then transition to oral anticoagulation.
Monitor H&H and midline site bleeding. Consider holding anticoagulation if hemoglobin downtrend and/or bleeding continues.
Follow-up bilateral upper extremity ultrasound results to assess LUE AVG patency and right midline.
Plan to resume regular MWF HD sessions tomorrow.
Assessment / Plan
Assessment / Plan
#Right lower extremity DVT
RLE venous duplex ultrasound (03/20): Nonocclusive right DVT in femoral, peroneal, tibial veins
Improving RLE edema and erythema
Continue heparin gtt until this evening, then transition to oral anticoagulation, as follows:
-Apixaban 10 mg p.o. twice daily for 5 days
-Apixaban 5 mg p.o. twice daily for 83 days for 90-day completion course
Bilateral upper extremity ultrasound to assess left AVG and right midline
Vancomycin started then discontinued, as concern for cellulitis is low based on ultrasound and physical exam
Lactate: 1.1 (03/20)
Blood cultures: NGTD
Monitor temperature curve, WBCs - afebrile, no leukocytosis today
#ESRD
Regular HD MWF
Received HD yesterday via right femoral CVC currently in place; plan to resume regular MWF schedule tomorrow
Per IR, preserve right femoral CVC despite RLE DVT, if possible, as patient's other veins may be insufficient for catheter placement
Continue midodrine
IR, nephrology following
#Anemia
Hgb 10.1 this morning, decreased from 10.6 yesterday afternoon, relatively stable
Small amount of bright red blood was observed under the patient's midline catheter dressing, though improved from yesterday
If hemoglobin continues to downtrend, consider holding anticoagulation
Transfuse for Hgb <7
Continue ferrous sulfate
#Heart failure s/p heart transplant
Continue sirolimus, tacrolimus for immunosuppression
Continue sacubitril/valsartan
No clinical signs of heart failure currently
#CAD
Continue aspirin, pravastatin
#Hypothyroidism
Continue levothyroxine
#Restless leg syndrome
Continue ropinirole
#Hypocalcemia
Calcium 7.9 this morning, stable over prior 2 weeks
Continue calcium supplement, trend calcium level
Diet: Regular solids and thin liquids, per speech therapy
GI prophylaxis: Pantoprazole
CODE STATUS: DNR/DNI
Anticipated Discharge: 24 - 48 hours
Subjective/Interval History
-
Date of Service: March 22, 2025
Patient seen at bedside on hospital day #3. Nursing reports RAYUMNDO. Nursing also reports patient's blood pressures and midline catheter bleeding have improved. Patient states she feels 'about the same.' She also states that her 'arm stopped
bleeding.'
Objective Data
-
Labs:
Laboratory Results
03/21/25 03/22/25 03/22/25
21:27 04:04 10:40
WBC 6.3
Hgb 10.1 L
Hct 31.4 L
Plt Count 157
APTT 130.2 H 54.1 H Pending
Sodium 138
Potassium 3.9
Chloride 107
Carbon Dioxide 25
BUN 34 H
Creatinine 3.1 H
Glucose 61 L
Calcium 7.9 L
Total Bilirubin 0.7
AST 15
ALT 12
Alkaline Phosphatase 96
Vital Signs:
Vital Signs
Temp Pulse Resp BP Pulse Ox
97.4 F 78 17 100/43 95
03/22/25 07:00 03/22/25 07:00 03/22/25 07:00 03/22/25 07:00 03/22/25 07:00
I&O
03/21/25 03/22/25 03/23/25
06:59 06:59 06:59
Intake Total 240 / 240 120 / 120
Balance 240 / 240 120 / 120
Review of Systems
-
History Source: Patient
Constitutional: Denies Fever, Fatigue or Chills
EENT: Reports No Symptoms Reported
Respiratory: Reports Cough (Patient states that it is chronic and has not changed recently); Denies Trouble Breathing
Cardiac: Denies Chest Pain, Palpitations or Syncope
Abdomen/GI: Denies Abdominal Pain, Nausea, Vomiting or Diarrhea
Genitourinary: Reports Other (Patient not making urine, as she has ESRD on HD)
Musculoskeletal: Reports Other (Patient endorses right foot pain, consistent for the past 2 to 3 weeks)
Neuro: Reports Headache (Mild DIAZ last night, resolved with Tylenol); Denies Weakness, Numbness or Lightheadedness
Hematologic / Lymphatic: Denies Bleeding (Patient states 'arm stopped bleeding')
Physical Exam
-
General: No Apparent Distress and Comfortable
HEENT: Normocephalic and Atraumatic
Respiratory: Clear to Auscultation and Non Labored Respirations; Negative Wheezes or Crackles
Cardiac: Regular Rhythm and S1/S2; Negative Murmur, Rub, Gallop, Tachycardic or Bradycardic
GI: Soft, Nontender and Normal Bowel Sounds
Genito-urinary: Other (No urine output (ESRD on HD))
Musculoskeletal: Other (Improving edema, erythema of right calf and foot; patient reports TTP on right calf, 6/10 pain; motor and sensory intact in bilateral lower extremities)
Skin: Warm, Dry and IV Access / Catheter Site (Right femoral vein catheter CDI, non-TTP; right brachial midline catheter wrapped with no sign of bleeding; upon unwrapping, midline site has small amount of red blood under the dressing, improved from
yesterday)
Neuro: Awake, Oriented (Oriented to person place, not to time), No Motor Deficits and No Sensory Deficits
Psych: Calm
[2025-03-22] MEDS: ASPIR LOW (ENTERIC COATED) 81 MG PO (09:19)
[2025-03-22] MEDS: TYLENOL 650 MG PO (09:20)
[2025-03-22] MEDS: TUMS EX (EXTRA STRENGTH) CHEWABLE TABLET 300 MG PO ×3 (09:20→16:59)
[2025-03-22] MEDS: PROGRAF 0.5 MG PO (09:21)
[2025-03-22] MEDS: ENTRESTO 24 MG/26 MG 1 TAB PO ×2 (09:21→20:10)
[2025-03-22] MEDS: LAC HYDRIN, AM LACTIN LOTION 1 APPLIC TOPICAL ×2 (09:21→20:10)
[2025-03-22] MEDS: PROTONIX 40 MG PO (09:22)
[2025-03-22 11:48] LABS: Hepatitis B Surface Antigen Negative (Negative)
[2025-03-22 11:58] LABS: Glucose - Point of Care 100 mg/dl (70-99)
[2025-03-22 12:03] LABS: APTT > 200 Sec (23.4-35.0)
[2025-03-22 13:02] LABS: APTT > 200.0 Sec (23.4-35.0)
--- NOTE | 2025-03-22 16:06 | W.PN.NEPH.PH ---
Today's Communication / Plan
-
HD tomorrow
Assessment/Plan
-
IMP:
Right LE DVT- catheter associated
Nonocclusive thrombus is present within the right common femoral vein in the visualized profunda femoris vein. There is nonocclusive thrombus within the mid to distal right femoral vein. Nonocclusive thrombus within the right peroneal and posterior
tibial veins.
ESRD [facility]- MWF
H/O IDDM
cardiomyopathy H/O Heart Transplant 2016
hYpotension on midodrine
RLS
Hypothyroidism
CAD
GERD
HLD
PLan:
A/w right leg edema and redness noted non occlusive DVT
given that right femoral HD catheter in IVC and no clot close to the catheter
plan made to keep catheter and continue AC since she has poor access
left UE AVG has thrill-check US for patency
Pt reports AVG gave problem in the past
cont phos binders and midodrine
HD tomorrow
d/w pt
-
-
Date of Service: March 22, 2025
CC / HPI / ROS
-
Chief Complaint:
ESRD
History of Present Illness:
toleraetd HD yesterday
BP stable
on heparin gtt
Review of Systems:
no cp or sob
edema of right leg improving
Labs
-
Labs:
WBC 6.3 10^3/uL (4.8-10.8) 03/22/25 04:04
RBC 3.30 10^6/uL (4.20-5.40) L 03/22/25 04:04
Hgb 10.1 g/dL (12.0-16.0) L 03/22/25 04:04
Hct 31.4 % (37.0-47.0) L 03/22/25 04:04
Plt Count 157 10^3/uL (130-400) 03/22/25 04:04
Sodium 138 mmol/L (135-145) 03/22/25 04:04
Potassium 3.9 mmol/L (3.5-5.1) 03/22/25 04:04
Chloride 107 mmol/L (98-107) 03/22/25 04:04
Carbon Dioxide 25 mmol/L (22-30) 03/22/25 04:04
BUN 34 mg/dl (7-17) H 03/22/25 04:04
Creatinine 3.1 mg/dL (0.6-1.0) H 03/22/25 04:04
eGFR 15.11 03/22/25 04:04
Glucose 61 mg/dl (70-99) L 03/22/25 04:04
Calcium 7.9 mg/dl (8.4-10.2) L 03/22/25 04:04
Albumin 3.2 g/dl (3.5-5.0) L 03/22/25 04:04
Physical Exam
-
Vital Signs:
Vital Signs
Temp Pulse Resp BP Pulse Ox
97.9 F 81 16 128/36 96
03/22/25 15:00 03/22/25 15:00 03/22/25 15:00 03/22/25 15:00 03/22/25 15:00
Cardiovascular:: Regular rate and rhythm (murmur)
Respiratory:: Bilateral: Coarse
Lung Excursion:: Normal
Abdomen:: Nontender and Soft
Extremity Edema:: +2: Right: and None: Left:
Peralta Catheter: No
[2025-03-22] MEDS: FEOSOL 325 MG PO (16:59)
[2025-03-22 17:11] LABS: Glucose - Point of Care 101 mg/dl (70-99)
[2025-03-22 18:57] LABS: APTT 42.9 Sec (23.4-35.0)
[2025-03-22 19:14] LABS: Hematocrit 33.6 % (37.0-47.0); Hemoglobin 10.6 g/dL (12.0-16.0); Mean Corp Hgb Conc. 31.5 g/dL (33.0-37.0); Mean Corpuscular Volume 96.6 fL (81.0-99.0); Platelet Count 175 10^3/uL (130-400); Red Cell Dist. Width 16.1 % (11.5-14.5)
--- NOTE | 2025-03-22 19:16 | VATNOTE ---
Midline dressing change completed at 1730, fully saturated with blood. UltraFoam, sterile gauze, and olivia wrap applied. Distal CMS intact. Last PTT >200. MD aware of continued saturation of midline dressing, H&H ordered, drawn at 1900, stable.
[2025-03-22] MEDS: ELIQUIS 10 MG PO (20:09)
[2025-03-22] MEDS: REQUIP 2 MG PO (21:34)
[2025-03-22] MEDS: PRAVACHOL 40 MG PO (21:34)
[2025-03-22] MEDS: TUMS EX (EXTRA STRENGTH) CHEWABLE TABLET 600 MG PO (21:34)
[2025-03-22] MEDS: RAPAMUNE 1 MG PO (21:34)
[2025-03-23 01:16] VITALS: BMI 23.2
[2025-03-23 03:00] VITALS: BP 103/60
[2025-03-23 04:43] LABS: Glucose - Point of Care 70 mg/dl (70-99)
[2025-03-23 04:59] LABS: Hematocrit 32.2 % (37.0-47.0); Hemoglobin 10.3 g/dL (12.0-16.0); Mean Corp Hgb Conc. 32.0 g/dL (33.0-37.0); Mean Corpuscular Volume 96.1 fL (81.0-99.0); Nucleated Red Blood Cells % 0 %; Platelet Count 170 10^3/uL (130-400); Red Cell Dist. Width 15.9 % (11.5-14.5)
[2025-03-23 05:28] LABS: ALT (SGPT) 12 U/L (0-35); AST (SGOT) 15 U/L (14-36); Albumin 3.2 g/dl (3.5-5.0); Alkaline Phosphatase 108 U/L (38-126); Blood Urea Nitrogen 47 mg/dl (7-17); Calcium 8.1 mg/dl (8.4-10.2); Carbon Dioxide 21 mmol/L (22-30); Chloride 107 mmol/L (98-107); Estimated Creatinine Clearance 11 ml/min; Glucose 70 mg/dl (70-99); Potassium 4.3 mmol/L (3.5-5.1); Sodium 138 mmol/L (135-145); Total Protein 6.0 g/dl (6.3-8.2); eGFR 12.22
[2025-03-23] MEDS: SYNTHROID 125 MCG PO (05:32)
[2025-03-23 07:48] LABS: Glucose - Point of Care 77 mg/dl (70-99)
[2025-03-23] MEDS: TUMS EX (EXTRA STRENGTH) CHEWABLE TABLET 300 MG PO ×3 (08:12→16:25)
[2025-03-23] MEDS: ELIQUIS 10 MG PO ×2 (08:13→22:08)
[2025-03-23] MEDS: PROTONIX 40 MG PO (08:13)
[2025-03-23] MEDS: ASPIR LOW (ENTERIC COATED) 81 MG PO (08:13)
[2025-03-23] MEDS: PROGRAF 0.5 MG PO (08:17)
[2025-03-23] MEDS: RETACRIT 3000 UNITS IV (09:24)
[2025-03-23] MEDS: MANNITOL 25% 12.5 GRAMS IV (09:24)
--- NOTE | 2025-03-23 10:51 | W.PN.NEPH.HD ---
Assessment
-
On dialysis tolerating treatment
Left AV graft pending ultrasound
Using right femoral permacath
Progress Note - Hemodialysis
-
Date of Service: March 23, 2025
Duration: 30 minutes and 3 hours
Potassium Bath: 2
Calcium Bath: 2.5
Opti-Dialyzer: 160
Ultrafiltration: Other (1-2kg)
Blood Flow: 400
Dialysate Flow: 600
Heparin: no
EPO: no
[2025-03-23 11:54] VITALS: BP 114/62
[2025-03-23] MEDS: ENTRESTO 24 MG/26 MG 1 TAB PO ×2 (12:03→21:05)
[2025-03-23 12:10] LABS: Glucose - Point of Care 65 mg/dl (70-99)
[2025-03-23] MEDS: LAC HYDRIN, AM LACTIN LOTION 1 APPLIC TOPICAL ×2 (12:13→21:05)
[2025-03-23 12:51] LABS: Glucose - Point of Care 62 mg/dl (70-99)
[2025-03-23 13:11] LABS: Glucose - Point of Care 79 mg/dl (70-99)
--- NOTE | 2025-03-23 13:29 | PTCARENOTE ---
Pt having visual hallucinations of food and utensils on her lap. MD made aware. Pt BG 65, fruit juice given. BG 62, pt asymptomatic. Another juice given along with lunchtime meal. BG 79. Will continue to monitor.
--- NOTE | 2025-03-23 13:35 | CM ---
Addendum entered by Mariza Greenwood 03/23/25 17:37:
Phil Orellana can be reached at [phone]
Addendum entered by Mariza Greenwood 03/23/25 17:27:
CM spoke with Phil Orellana at [facility] and advised Keshia can return to [facility] at discharge.
Notified by Dr. Calhoun (resident) that pt is bleeding and will not be ready for discharge until tomorrow.
Plan: Return to [facility] tomorrow
Report: [phone]

Original Note:
CM following for return to [facility]. [facility] updated and dialysis records sent via Fax attach.
PT eval pending.
[2025-03-23 15:40] VITALS: BP 94/67
[2025-03-23 15:45] LABS: Glucose - Point of Care 80 mg/dl (70-99)
[2025-03-23 17:01] LABS: Glucose - Point of Care 93 mg/dl (70-99)
[2025-03-23] MEDS: FEOSOL 325 MG PO (17:08)
--- NOTE | 2025-03-23 17:36 | PTCARENOTE ---
R midline bleeding continuously and requiring multiple dressing changes by IV team. Discussed with physician and VAT RN about removing midline catheter. Line removed by VAT team in morning. Site continues bleeding through dressing and onto hospital
gown multiple times during shift. Resident made aware. Will continue to monitor.
--- NOTE | 2025-03-23 18:01 | W.PN.HOSP.TC ---
Addendum entered and electronically signed by César Souza MD 03/24/25 14:25:
right le evt
on apixaban bid loading dose
-make 5mg bid after inital 7days for at least 90days
outpatient hematology follow up
esrd on hd
conitnue hd per neph rec via fem
Original Note:
Today's Communication/Plan
-
Continue to monitor H&H and signs of active bleeding, particularly RUE midline catheter site.
Plan to remove midline catheter, as it is a source of bleeding and no longer necessary after transition to oral anticoagulation.
Continue anticoagulation while monitoring H&H and bleeding. Consider stopping anticoagulation if bleeding persists.
Plan to discharge home tomorrow if hemoglobin is stable and bleeding ceases at RUE midline site after removal.
Assessment / Plan
Assessment / Plan
#Right lower extremity DVT
RLE venous duplex ultrasound (03/20): Nonocclusive right DVT in femoral, peroneal, tibial veins
Improving RLE edema and erythema
Patient transitioned from heparin to oral anticoagulation with apixaban last
Bilateral upper extremity ultrasound to assess left AVG and right midline planned for later today
Vancomycin started then discontinued in the ED, as concern for cellulitis is low based on ultrasound and physical exam
Lactate: 1.1 (03/20)
Blood cultures: NGTD
Monitor temperature curve, WBCs - afebrile, no leukocytosis today
#ESRD
Regular HD MWF
Received HD at the bedside this morning via right femoral CVC currently in place; continue MWF schedule
Per IR, preserve right femoral CVC despite RLE DVT, if possible, as patient's other veins may be insufficient for catheter placement
Continue midodrine
IR, nephrology following
#Anemia
Hgb 10.3 this morning, decreased from 10.6 yesterday evening, relatively stable
Small amount of bright red blood was observed under the patient's midline catheter dressing
Plan to remove midline catheter, as patient is no longer on IV anticoagulation
Transfuse for Hgb <7
Continue ferrous sulfate
Continue to monitor H&H and any signs of active bleeding
#Heart failure s/p heart transplant
Continue sirolimus, tacrolimus for immunosuppression
Continue sacubitril/valsartan
No clinical signs of heart failure currently
#CAD
Continue aspirin, pravastatin
#Hypothyroidism
Continue levothyroxine
#Restless leg syndrome
Continue ropinirole
#Hypocalcemia
Calcium 8.1 this morning, stable over prior 2 weeks
Continue calcium supplement, trend calcium level
Diet: Regular solids and thin liquids, per speech therapy
GI prophylaxis: Pantoprazole
CODE STATUS: DNR/DNI
Anticipated Discharge: Within 24 hours
Subjective/Interval History
-
Date of Service: March 23, 2025
Patient is seen at the bedside on hospital day #4. Patient states she feels 'fine. I feel good.' Patient currently getting hemodialysis at the bedside. Nursing reports NAEO. Nursing also reports that there was blood under her midline dressing
prior to the dressing being changed this morning. No current complaints.
Objective Data
-
Labs:
Laboratory Results
03/23/25
17:51
Hgb Pending
Hct Pending
Vital Signs:
Vital Signs
Temp Pulse Resp BP Pulse Ox
97.8 F 90 18 94/67 95
03/23/25 15:40 03/23/25 16:25 03/23/25 15:40 03/23/25 16:25 03/23/25 15:40
I&O
03/22/25 03/23/25 03/24/25
06:59 06:59 06:59
Intake Total 620 / 620
Balance 620 / 620
Review of Systems
-
History Source: Patient
Constitutional: Denies Fever, Fatigue or Chills
EENT: Reports No Symptoms Reported
Respiratory: Denies Cough or Trouble Breathing
Cardiac: Denies Chest Pain, Palpitations or Syncope
Abdomen/GI: Denies Abdominal Pain, Nausea, Vomiting or Diarrhea
Musculoskeletal: Reports Other (Right lower extremity edema, erythema, and TTP below the knee continues to improve)
Skin: Reports No Symptoms
Neuro: Denies Headache, Weakness or Numbness
Physical Exam
-
General: No Apparent Distress and Comfortable
HEENT: Normocephalic and Atraumatic
Respiratory: Clear to Auscultation and Non Labored Respirations; Negative Wheezes or Crackles
Cardiac: Regular Rhythm and S1/S2; Negative Murmur, Rub or Gallop
GI: Soft, Nontender and Normal Bowel Sounds
Musculoskeletal: Edema, Right Lower Extrem (Edema still present but improving and RLE below the knee and into the foot)
Skin: Warm, Dry and IV Access / Catheter Site (Small amount of bright red blood present beneath patient's midline catheter dressing; right femoral catheter CDI, non-TTP)
Neuro: Awake and Alert
Psych: Calm
--- NOTE | 2025-03-23 18:26 | PTCARENOTE ---
Dressing continues to bleed. Pressure dressing applied per MD order. H&H ordered and being obtained now. POC ongoing.
[2025-03-23 18:37] LABS: Hematocrit 35.0 % (37.0-47.0); Hemoglobin 11.1 g/dL (12.0-16.0)
[2025-03-23 19:10] VITALS: BP 142/99
[2025-03-23] MEDS: PRAVACHOL 40 MG PO (21:05)
[2025-03-23] MEDS: TUMS EX (EXTRA STRENGTH) CHEWABLE TABLET 600 MG PO (21:05)
[2025-03-23] MEDS: REQUIP 2 MG PO (21:05)
[2025-03-23] MEDS: RAPAMUNE 1 MG PO (21:05)
[2025-03-23 21:33] LABS: Glucose - Point of Care 129 mg/dl (70-99)
--- NOTE | 2025-03-23 21:34 | VATNOTE ---
TT received from PCN, Tim, re. right midline insertion site dsg fully bloody again. According to PCn, staff have changed this dsg 5x today. Upon removing soaked dsg. noted small trickle of blood continuously coming from insertion site. Applied 2
Quik Clot, 2=4x4 dressings, a snug olivia wrap and then ice. Also elevated right arm on pillow. Pt stated that when arm was elevated before, bleeding stopped. Staff to follow.
[2025-03-23 23:02] VITALS: BP 106/50
[2025-03-24 03:05] VITALS: BP 107/72
[2025-03-24 03:43] LABS: Glucose - Point of Care 95 mg/dl (70-99)
[2025-03-24 06:00] VITALS: BMI 23.4
[2025-03-24] MEDS: SYNTHROID 125 MCG PO (06:09)
[2025-03-24 07:12] LABS: Hematocrit 32.8 % (37.0-47.0); Hemoglobin 10.4 g/dL (12.0-16.0); Mean Corp Hgb Conc. 31.7 g/dL (33.0-37.0); Mean Corpuscular Volume 97.3 fL (81.0-99.0); Nucleated Red Blood Cells % 0 %; Platelet Count 170 10^3/uL (130-400); Red Cell Dist. Width 16.0 % (11.5-14.5)
[2025-03-24 07:34] LABS: Glucose - Point of Care 65 mg/dl (70-99)
[2025-03-24 07:42] LABS: ALT (SGPT) 12 U/L (0-35); AST (SGOT) 17 U/L (14-36); Albumin 3.3 g/dl (3.5-5.0); Alkaline Phosphatase 113 U/L (38-126); Blood Urea Nitrogen 25 mg/dl (7-17); Calcium 8.2 mg/dl (8.4-10.2); Carbon Dioxide 27 mmol/L (22-30); Chloride 105 mmol/L (98-107); Estimated Creatinine Clearance 16 ml/min; Glucose 70 mg/dl (70-99); Potassium 4.1 mmol/L (3.5-5.1); Sodium 140 mmol/L (135-145); Total Protein 6.0 g/dl (6.3-8.2); eGFR 17.84
[2025-03-24 07:54] VITALS: BP 98/57
[2025-03-24] MEDS: PROTONIX 40 MG PO (08:00)
[2025-03-24] MEDS: PROGRAF 0.5 MG PO (08:01)
[2025-03-24] MEDS: ELIQUIS 10 MG PO (08:01)
[2025-03-24] MEDS: ASPIR LOW (ENTERIC COATED) 81 MG PO (08:01)
[2025-03-24 08:08] LABS: Glucose - Point of Care 80 mg/dl (70-99)
[2025-03-24] MEDS: LAC HYDRIN, AM LACTIN LOTION 1 APPLIC TOPICAL (08:10)
[2025-03-24] MEDS: TUMS EX (EXTRA STRENGTH) CHEWABLE TABLET 300 MG PO ×3 (08:13→16:09)
[2025-03-24 08:40] LABS: Glucose - Point of Care 105 mg/dl (70-99)
[2025-03-24] MEDS: ENTRESTO 24 MG/26 MG 1 TAB PO (10:41)
--- NOTE | 2025-03-24 11:23 | W.PN.NEPH.PH ---
Today's Communication / Plan
-
For discharge
Dialysis at home unit
Assessment/Plan
-
IMP:
Right LE DVT- catheter associated
Nonocclusive thrombus is present within the right common femoral vein in the visualized profunda femoris vein. There is nonocclusive thrombus within the mid to distal right femoral vein. Nonocclusive thrombus within the right peroneal and posterior
tibial veins.
ESRD [facility]- MWF
H/O IDDM
cardiomyopathy H/O Heart Transplant 2016
hYpotension on midodrine
RLS
Hypothyroidism
CAD
GERD
HLD
PLan:
A/w right leg edema and redness noted non occlusive DVT
given that right femoral HD catheter in IVC and no clot close to the catheter
plan made to keep catheter and continue AC since she has poor access
left UE AVG has thrill-check US for patency
Pt reports AVG gave problem in the past
cont phos binders and midodrine
Plan is for discharge today per primary service
Next dialysis can be done tomorrow at her home unit
d/w pt
-
-
Date of Service: March 24, 2025
CC / HPI / ROS
-
Chief Complaint:
ESRD
History of Present Illness:
toleraetd HD yesterday MWF
BP stable
on heparin gtt
Review of Systems:
no cp or sob
edema of right leg improving
Labs
-
Labs:
WBC 6.1 10^3/uL (4.8-10.8) 03/24/25 06:10
RBC 3.37 10^6/uL (4.20-5.40) L 03/24/25 06:10
Hgb 10.4 g/dL (12.0-16.0) L 03/24/25 06:10
Hct 32.8 % (37.0-47.0) L 03/24/25 06:10
Plt Count 170 10^3/uL (130-400) 03/24/25 06:10
Sodium 140 mmol/L (135-145) 03/24/25 06:10
Potassium 4.1 mmol/L (3.5-5.1) 03/24/25 06:10
Chloride 105 mmol/L (98-107) 03/24/25 06:10
Carbon Dioxide 27 mmol/L (22-30) 03/24/25 06:10
BUN 25 mg/dl (7-17) H 03/24/25 06:10
Creatinine 2.7 mg/dL (0.6-1.0) H 03/24/25 06:10
eGFR 17.84 03/24/25 06:10
Glucose 70 mg/dl (70-99) 03/24/25 06:10
Calcium 8.2 mg/dl (8.4-10.2) L 03/24/25 06:10
Albumin 3.3 g/dl (3.5-5.0) L 03/24/25 06:10
Physical Exam
-
Vital Signs:
Vital Signs
Temp Pulse Resp BP Pulse Ox
98.3 F 86 14 121/68 93
03/24/25 07:54 03/24/25 10:41 03/24/25 07:54 03/24/25 10:41 03/24/25 07:54
Cardiovascular:: Regular rate and rhythm (murmur)
Respiratory:: Bilateral: Coarse
Lung Excursion:: Normal
Abdomen:: Nontender and Soft
Extremity Edema:: +2: Right: and None: Left:
Peralta Catheter: No
[2025-03-24 12:00] VITALS: BP 135/69
[2025-03-24 12:42] LABS: Glucose - Point of Care 82 mg/dl (70-99)
[2025-03-24 15:00] VITALS: BP 114/48
--- NOTE | 2025-03-24 15:12 | W.PN.HOSP.TC ---
Addendum entered and electronically signed by César Souza MD 03/26/25 14:10:
dc to snf
Original Note:
Today's Communication/Plan
-
Continue anticoagulation with apixaban for treatment of RLE DVT. Improving RLE edema, erythema, pain.
No bleeding at former midline catheter site on RUE despite removal yesterday and continuing anticoagulation.
Patient is feeling well and amenable to discharge back to [facility].
Assessment / Plan
Assessment / Plan
#Right lower extremity DVT
RLE venous duplex ultrasound (03/20): Nonocclusive right DVT in femoral, peroneal, tibial veins
Improving RLE edema and erythema
Patient now on apixaban after being transition from heparin 2 days ago
LUE ultrasound: Patent LUE AVF. High-grade outflow vein stenosis.
Vancomycin started then discontinued in the ED, as concern for cellulitis is low based on ultrasound and physical exam
Lactate: 1.1 (03/20)
Blood cultures: NGTD
Monitor temperature curve, WBCs - afebrile, no leukocytosis today
#ESRD
Regular HD MWF
Received HD at the bedside yesterday via right femoral CVC currently in place; continue MWF schedule
Per IR, preserve right femoral CVC despite RLE DVT, if possible, as patient's other veins may be insufficient for catheter placement
Continue midodrine
IR, nephrology following
#Anemia
Hgb 10.4 this morning, stable
No blood at site of former midline catheter on RUE
Transfuse for Hgb <7
Continue ferrous sulfate
Continue to monitor H&H and any signs of active bleeding
#Heart failure s/p heart transplant
Continue sirolimus, tacrolimus for immunosuppression
Continue sacubitril/valsartan
No clinical signs of heart failure currently
#CAD
Continue aspirin, pravastatin
#Hypothyroidism
Continue levothyroxine
#Restless leg syndrome
Continue ropinirole
#Hypocalcemia
Calcium 8.2 this morning, stable over prior 2 weeks
Continue calcium supplement, trend calcium level
Diet: Regular solids and thin liquids, per speech therapy
GI prophylaxis: Pantoprazole
CODE STATUS: DNR/DNI
Anticipated Discharge: Today
Subjective/Interval History
-
Date of Service: March 24, 2025
Patient seen at the bedside on hospital day #5. Nursing reports NAEO. Nursing also reports that the bleeding has stopped entirely at the site of the patient's former RUE midline catheter, which was removed yesterday. Patient reports she feels no
different than yesterday, 'I feel fine.'
Objective Data
-
Labs:
Laboratory Results
03/24/25
06:10
WBC 6.1
Hgb 10.4 L
Hct 32.8 L
Plt Count 170
Sodium 140
Potassium 4.1
Chloride 105
Carbon Dioxide 27
BUN 25 H
Creatinine 2.7 H
Glucose 70
Calcium 8.2 L
Total Bilirubin 0.7
AST 17
ALT 12
Alkaline Phosphatase 113
Vital Signs:
Vital Signs
Temp Pulse Resp BP Pulse Ox
98.4 F 97 12 133/73 96
03/24/25 12:00 03/24/25 12:47 03/24/25 12:00 03/24/25 12:47 03/24/25 12:00
I&O
03/23/25 03/24/25 03/25/25
06:59 06:59 06:59
Intake Total 620 / 620 460 / 460
Balance 620 / 620 460 / 460
Review of Systems
-
History Source: Patient
Constitutional: Denies Fever, Fatigue or Chills
EENT: Reports No Symptoms Reported
Respiratory: Denies Trouble Breathing
Cardiac: Denies Chest Pain, Palpitations or Syncope
Abdomen/GI: Denies Abdominal Pain, Nausea, Vomiting or Diarrhea
Musculoskeletal: Reports Edema (Improving RLE edema)
Skin: Reports Other (No bleeding at former midline site on RUE)
Neuro: Denies Dizzy, Headache, Weakness or Numbness
Physical Exam
-
General: No Apparent Distress, Comfortable and Other (Frail)
HEENT: Normocephalic and Atraumatic
Respiratory: Clear to Auscultation and Non Labored Respirations; Negative Wheezes or Crackles
Cardiac: Regular Rhythm, S1/S2 and Calf Tenderness (Minimal TTP in RLE, improved from recent days); Negative Murmur, Rub, Gallop, Tachycardic or Bradycardic
GI: Soft, Nontender and Normal Bowel Sounds
Musculoskeletal: Other (Improving edema, erythema, and tenderness to palpation in RLE); Negative No Cyanosis
Skin: IV Access / Catheter Site (No bleeding at forearm midline catheter site on RUE)
Neuro: AO x 3, No Motor Deficits and No Sensory Deficits
Psych: Calm
--- NOTE | 2025-03-24 15:28 | CM ---
Patient to return to [place] today, daughter to transport 7pm steel pickler.
Plan: Return to [place]
Report: [phone]
[2025-03-24 16:48] LABS: Glucose - Point of Care 125 mg/dl (70-99)
--- NOTE | 2025-03-24 17:12 | W.DCSUMMARY ---
Discharge Summary
Discharge Data
Date of Admission: 03/20/25
Date of Discharge: 03/24/25
-
Pending Results: No
Hospital Course
Discharging Physician : Lai Calhoun MD; César Souza MD
Disposition : [facility] ([facility])
Primary care physician : Francisco Pickard MD
Principal Discharge diagnosis : Right lower extremity deep vein thrombosis; acute blood loss anemia
Chronic Discharge diagnosis : ESRD; CAD; CHF s/p heart transplant; hypothyroidism; diabetes mellitus; restless leg syndrome
Hospital Course : Patient is a 74-year-old female with a past medical history of ESRD on HD MWF, CAD, CHF s/p heart transplant, hypothyroidism, diabetes mellitus, and restless leg syndrome who presented to the [facility] emergency
department from [facility] with progressive pain and swelling of her right calf and foot. The patient was initially treated with 1 dose of vancomycin out of concern for right lower extremity cellulitis. However, subsequent physical exam
findings were more suggestive of vascular etiology, and a right lower extremity ultrasound confirmed a diagnosis of right lower extremity deep vein thrombosis. The patient was started on heparin drip for treatment of the DVT. Due to her acute DVT
and associated presentation to the hospital, the patient missed her regularly scheduled Sunday dialysis session. The patient receives dialysis through a right femoral catheter. The patient received inpatient hemodialysis treatments on Sunday and
Sunday of her hospital course. The patient had intermittent episodes of mild hypotension during hospital course, which were managed with her home midodrine regimen. The patient required additional IV access via a right brachial midline catheter.
The patient was maintained on anticoagulation with heparin over the subsequent days, before being transitioned to oral anticoagulation with apixaban. Throughout much of the course of this patient's hospital stay, the patient's right brachial
midline catheter bled persistently. In order to monitor the bleeding while also maintaining anticoagulation treatment for the DVT, serial H&H's were monitored throughout the hospital course. The patient was found to be anemic with hemoglobin
values ranging from 10.1-11.4 throughout the hospital course. Once the patient was transitioned from heparin to apixaban, thus no longer needing her midline catheter access, the midline catheter was removed. After removal, the bleeding from the
midline catheter site ceased. At this point, the patient was medically cleared for discharge back to [facility]. The patient will continue anticoagulation for her right lower extremity DVT with apixaban 10 mg p.o. twice daily for an additional
3 days after discharge, followed by apixaban 5 mg p.o. twice daily for an additional 83 days or until follow-up with her PCP.
Unless stated otherwise above, the patient's chronic medical conditions were managed with her home medication regimens.
Important imaging findings : �
Venous ultrasound (right lower extremity) � Impression:
1. Nonocclusive thrombus is present within the right common femoral vein in the visualized profunda femoris vein. The proximal right femoral vein appears patent. There is nonocclusive thrombus within the mid to distal right femoral vein.
2. There is nonocclusive thrombus within the right peroneal and posterior tibial veins.
Duplex ultrasound of hemodialysis graft (left upper extremity) � Impression:
1. Patent left upper extremity arteriovenous fistula. High-grade outflow vein stenosis as above.
Procedure findings :�N/A
Discharge Plan
-
Patient Disposition: Care Home/SNF
Discharge Diagnosis/Procedures: Right lower extremity DVT; acute blood loss anemia
Condition: Good
Diet: As tolerated
Activity: As tolerated
Driving Restrictions: As prior to admission
Bathing Restrictions: None
Activity Restrictions/Additional Instructions:
Follow-up with primary care physician (Francisco Pcikard MD) within 1 week
Referrals:
Francisco Pickard MD [Family Provider, Family Practice]
Additional Discharge Medication Instructions: Patient will continue anticoagulation for treatment of right lower extremity DVT, as follows:
Continue Eliquis 10 mg by mouth twice daily for 3 more days (6 more doses) followed by Eliquis 5 mg by mouth twice daily for 83 days
Patient prescribed 30-day supply of Eliquis 5 mg, she will be seen by PCP within 1 week
Prescriptions:
New
Eliquis 5 mg Tablet
10 mg PO BID 3 Days Qty: 12 0RF
Eliquis 5 mg tablet
5 mg PO BID 30 Days Qty: 60 0RF
Continued
aspirin 81 MG tablet,delayed release (DR/EC)
81 mg PO DAILY
ferrous sulfate [FeroSul] 325 MG tablet
325 mg PO QPM
levothyroxine 125 MCG tablet
125 mcg PO DAILY
pravastatin 20 MG tablet
40 mg PO HS
multivitamin with folic acid [Tab-A-Henyr] 1 TABLET tablet
1 tab PO DAILY
ropinirole 2 MG tablet
2 mg PO HS
acetaminophen [Tylenol] 325 mg Tablet
650 mg PO Q6HPRN PRN (Reason: MILD PAIN)
ammonium lactate 12 % Lotion
1 applic TOPICAL BID
loperamide 2 mg Capsule
2 mg PO Q6HPRN PRN (Reason: DAIRRHEA)
ondansetron HCl 4 mg Tablet
4 mg PO Q8HPRN PRN (Reason: NAUSEA)
midodrine 5 mg Tablet
5 mg PO TID
Tums 300 mg (750 mg) Tablet,Chewable
300 mg PO AC
Tums 300 mg (750 mg) Tablet,Chewable
600 mg PO HS
acetaminophen 650 mg Tablet Extended Release
650 mg PO Q8HPRN PRN (Reason: KNEE PAINS)
sirolimus 1 mg Tablet
1 mg PO HS
bisacodyl [Dulcolax (bisacodyl)] 10 mg Suppository
10 mg ND DAILYPRN PRN (Reason: IF NO BM AFTR MOM)
omeprazole 20 mg Capsule,Delayed Release(Dr/Ec)
20 mg PO DAILY
bisacodyl [Dulcolax (bisacodyl)] 5 mg Tablet,Delayed Release (Dr/Ec)
5 mg PO DAILYPRN PRN (Reason: CONSTIPATION)
tacrolimus 0.5 mg Capsule
0.5 mg PO DAILY
cholecalciferol (vitamin D3) [Vitamin D3] 25 mcg (1,000 unit) Tablet
50 mcg PO DAILY
Entresto 24-26 mg Tablet
1 tab PO BID
calcium acetate 667 mg Tablet
667 mg PO AC
Discharge Orders:
Discharge Patient (As Directed); Ordered 03/24/25
Ordered By: Jagdish Cantu
Discharge Date and Time
Print Language: PRYDEINIG
[2025-03-24] MEDS: FEOSOL 325 MG PO (17:47)
[2025-03-24 18:23] VITALS: BP 147/89
== END 2025-03-24 20:17 | DRG 314 ==
LOC: 3 WEST ACU 16:29
PROVIDERS: Internal Medicine; Internal Medicine Nephrology; ADMITTING PHYSICIAN Family Medicine; ATTENDING PHYSICIAN Hospitalist; CONSULT PHYSICIAN Internal Medicine; EMERGENCY PHYSICIAN Emergency Medicine; FAMILY PHYSICIAN Family Medicine
PROC: 5A1D70Z Performance of Urinary Filtration, Intermittent, Less than 6 Hours Per Day (ICD-10-PCS; 2025-03-21)
DX: T82.868A Thrombosis due to vascular prosthetic devices, implants and grafts, initial encounter (principal); N18.6 End stage renal disease; Z94.1 Heart transplant status; D84.9 Immunodeficiency, unspecified; I82.411 Acute embolism and thrombosis of right femoral vein; I82.451 Acute embolism and thrombosis of right peroneal vein; I82.441 Acute embolism and thrombosis of right tibial vein; I42.9 Cardiomyopathy, unspecified; I87.1 Compression of vein; D62 Acute posthemorrhagic anemia; K21.9 Gastro-esophageal reflux disease without esophagitis; G25.81 Restless legs syndrome; E11.22 Type 2 diabetes mellitus with diabetic chronic kidney disease; I95.9 Hypotension, unspecified; E03.9 Hypothyroidism, unspecified; E78.5 Hyperlipidemia, unspecified; E83.51 Hypocalcemia; I25.10 Atherosclerotic heart disease of native coronary artery without angina pectoris; Y84.8 Other medical procedures as the cause of abnormal reaction of the patient, or of later complication, without mention of misadventure at the time of the procedure; Y92.9 Unspecified place or not applicable; Z60.2 Problems related to living alone; Z66 Do not resuscitate; Z79.82 Long term (current) use of aspirin; Z79.890 Hormone replacement therapy; Z79.621 Long term (current) use of calcineurin inhibitor; Z99.2 Dependence on renal dialysis; Z87.891 Personal history of nicotine dependence; Z90.49 Acquired absence of other specified parts of digestive tract; Z88.8 Allergy status to other drugs, medicaments and biological substances
CPT/HCPCS: 80053; 82962; 83036; 83605; 85014; 85018; 85025; 85027; 85730; 86706; 87040; 87340; 92526; 92610; 93971; 93990; 96365; 97163; 97530; 99284; P9047; Q5106

== ENCOUNTER 2025-05-27 16:29 | Inpatient (IN) | payer MEDICARE, OTHER, SELFPAY ==
[2025-05-27] VITALS (27 sets, daily range): BP systolic 81–154; BP diastolic 55–140
--- NOTE | 2025-05-27 12:09 | ED.GENMED ---
History of Present Illness
<Kathia Mcfarland PA-C - Last Filed: 05/27/25 16:27>
General
Chief Complaint: Change in Mental Status
Source: patient and [facility]
Exam Limitations: none
Time Seen by Provider: 05/27/25 11:41
History of Present Illness
History of Present Illness:
75yoF with a history of prior heart transplant, ESRD on hemodialysis M/W/F, and coronary artery disease presenting via EMS for evaluation of altered mental status. Patient is a resident at [facility] and history is obtained from [facility]
staff. Patient was reportedly confused this morning. She could not recognize her nurse which is very unusual for her. She was also very restless and was talking loudly. She was hallucinating and was speaking to someone who was not in the room.
She was also noted to be more edematous than normal specifically in the facial and abdomen region. She was scheduled to have dialysis this afternoon. Patient has no complaints on arrival.
Past History
<Kathia Mcfarland PA-C - Last Filed: 05/27/25 16:27>
Past History
ED Past Medical History: CAD, CHF, IDDM and Hypothyroidism
ED Past Surgical History: Cardiac (cardiac transplant 2016) and Other (Gallbladder, pacemaker, LVAD, heart transplant)
Patient has exhibited threatening behavior?: No
Social History
Tobacco: Non-smoker
Alcohol: None
Drug: None
Living: [facility]
Phy Exam
<Kathia Mcfarland PA-C - Last Filed: 05/27/25 16:27>
Physical Exam
Physical Exam:
Chronically ill appearing, no acute distress noted
General Physical Exam
General Presentation: no apparent distress
General age: appears older than age
General Skin: warm and dry
General Mental: alert
ENT Exam
ENT Exam: normocephalic
Cardiovascular Exam
Cardiovascular Exam: regular rate/rhythm and other (Peripheral edema noted particularly in RUE and bilateral lower extremities)
Pulmonary Exam
Pulmonary Exam: other (Bilateral rales. No signs of respiratory distress.)
Neurological Exam
Neurological Exam: alert and other (Dysarthria noted which is baseline per my discussion with [facility] staff member. Oriented to person, place, and time.)
Musculoskeletal Exam
Musculoskeletal Exam: other (R groin dialysis catheter present. LUE fistula with palpable thrill)
Skin Exam
Skin Exam: warm/dry
Psychiatric Exam
Psychiatric Exam: normal mood/affect
Course
<Kathia Mcfarland PA-C - Last Filed: 05/27/25 16:27>
Orders/Labs/Results
Orders:
Orders
05/27/25 12:02
Electrocardiogram (*1) Urgent
Reason for Study: Fatigue / Weakness
CT Head W/o Iv Contrast Urgent
Comment:
Reason For Exam: AMS
EKG- Treatment ONCE
CR Chest - 2 Views Urgent
Comment:
Reason For Exam: AMS
05/27/25 12:03
Urinalysis Reflex To Culture Urgent
05/27/25 12:14
COVID-19 Antigen Urgent
Source: Nasal Swab
Influenza A+B Rapid Molecular Urgent
ELIZABETH Source: Nasal Swab
Specimen Description:
05/27/25 12:26
US Arms, Right [US Periph Venous UPPER Ext RT] Urgent
Comment:
Reason For Exam: swelling, recent midline placement and removal
05/27/25 12:36
Complete Blood Count/With Diff Urgent
Comprehensive Metabolic Panel Urgent
Free T4 Urgent
Lactic Acid Urgent
TSH Reflex To Free T4 Urgent
Blood Culture Q30M
ELIZABETH Source: Blood/Venous
Specimen Description:
05/27/25 14:07
Cefepime HCl [Maxipime] 2,000 mg IV NOW STA
05/27/25 14:13
IRAD CONSULT Urgent
Consulting Provider: Rylan Robertson
Was physician already notified: Yes
Procedure being ordered, including laterality if applicable: Central venous access
Acknowledgement that appropriate orders are entered: Yes
05/27/25 14:20
Vancomycin [Vancocin] 1,500 mg 0.9% Sodium Chloride 500 ml [Nss] 500 ml IV NOW
05/27/25 14:22
NT-proBNP Urgent
05/27/25 15:30
Add On- LAB Routine
Tests Added?: iron, ferritin, tibc, folate, vit b12
Add On- LAB Urgent
Tests Added?: tacrolimus level
05/27/25 15:42
Type+Screen Urgent
Procalcitonin Urgent
If negative, will antibiotics be d/c'd or not started: Yes
Does the patient have renal or hepatic impairment?: No
Any recent (w/in 48 hrs) physiologic stress (CPR, rhabdo): No
Blood Culture Q30M
ELIZABETH Source: Blood/Venous
Specimen Description:
05/27/25 15:48
Albumin Human 25% 50 ml [Flexbumin 25% For Hemodialysis] 12.5 grams IV HD-Q1HPRN PRN
Epoetin Eder-Epbx [Retacrit] 10,000 units IV HD-ONCE ONE
Epoetin Eder-Epbx [Retacrit] 2,000 units IV HD-ONCE ONE
Heparin 500 units IV HD-ONCE ONE
Heparin 500 units IV HD-ONCE ONE
Heparin See Dose Instructions INTRACATH HD-ONCE ONE
Mannitol 25% 12.5 grams IV HD-Q1HPRN PRN
Sodium Chloride [Sodium Chloride 4 Meq/ml For Hemodialysis] 10 ml IV HD-Q1HPRN PRN
Hemodialysis treatment As Directed
Treatment date:: 05/27/25
Treatment type: Hemodialysis
Ultrafiltration (kg): 3
Treatment time (duration): 3 hours 30 minutes
Use dialysis access:: Tunneled Cath
Dialyzer:: Optiflux 160
Blood flow rate minimum: 350
Blood flow rate maximum: 400
Dialysis flow rate: 600 mL/min
Dialysate temperature: 35 degrees Celsius
Sodium (Na): 140
Potassium (K): 3
Calcium (Ca): 2.5
Bicarbonate (HCO3): 35
05/27/25 15:50
Ferritin Urgent
Comment: pre-Hemodialysis lab, to be drawn by HD nurse
Iron Urgent
Comment: pre-Hemodialysis lab, to be drawn by HD nurse
Total Iron Binding Urgent
Comment: pre-Hemodialysis lab, to be drawn by HD nurse
05/27/25 16:06
Admit/Transfer Patient As Directed
Co-Sign Provider:
Level of Care: Inpatient admission
Assign to:: IMU- Intermediate Care
Physician / Group: Primo
Diagnosis: pneumonia, volume overload, hypothyroidism
Reason for Hospitalization: IV abx, volume management with dialysis
Expected length of stay greater than two midnights?: Yes
ELOS- Estimated Length of Stay in days: 3
I certify the patient meets the requirements for IP care: Yes
05/27/25 16:07
PRN Pain Medication Management As Directed
May give lesser potent ordered pain med per pt: Yes
preference::
Protocol:: Medication orders for pain may be administered in a
manner that supports deferring to patient preference
when the pt is:
- Requesting an ordered lesser potent pain medication.
Least to most potent pain medications are defined
as: acetaminophen < NSAID < tramadol < opioids
(morphine, oxycodone, hydromorphone).
- Requesting a lesser dose of the same medication IF
ORDERED.
- Requesting a less intrusive route of administration
if both routes are prescribed by the provider (PO <
IV).
05/27/25 16:09
Code Status As Directed
Resuscitation Status: Do not resuscitate
Based on pt advanced directive or healthcare POA form: Yes
Physician note:: PER [place] [employer]
DNR Bracelet Application ONCE
Abnormal Lab Results
05/27/25
12:36
RBC 2.25 L 10^6/uL
(4.20-5.40)
Hgb 7.4 L g/dL
(12.0-16.0)
Hct 22.2 L %
(37.0-47.0)
MCH 32.9 H pg
(27.0-31.0)
RDW 16.6 H %
(11.5-14.5)
MPV 11.1 H fL
(7.4-10.4)
Absolute Lymphs (auto) 0.8 L 10^3/uL
(1.2-3.4)
Neutrophils % 78.5 H %
(42.2-75.2)
Lymphocytes % 11.9 L %
(20.5-51.1)
Sodium 134 L mmol/L
(135-145)
BUN 38 H mg/dl
(7-17)
Creatinine 2.9 H mg/dL
(0.6-1.0)
Glucose 58 L mg/dl
(70-99)
Calcium 7.6 L mg/dl
(8.4-10.2)
Albumin 3.2 L g/dl
(3.5-5.0)
TSH (Reflex) 35.60 H uIU/ml
(0.47-4.68)
05/27/25 12:36
05/27/25 12:36
Vital Signs
Initial and Last Documented VS:
Initial Vital Signs
Temp
95.9 F L
05/27/25 10:38
Last Documented Vital Signs
Temp Pulse Resp BP Pulse Ox
95.9 F L 71 15 97/83 98
05/27/25 10:38 05/27/25 15:45 05/27/25 15:45 05/27/25 15:24 05/27/25 15:45
<Deuce Garcia MD - Last Filed: 05/27/25 14:17>
Orders/Labs/Results
Orders:
Orders
05/27/25 12:02
Electrocardiogram (*1) Urgent
Reason for Study: Fatigue / Weakness
CT Head W/o Iv Contrast Urgent
Comment:
Reason For Exam: AMS
EKG- Treatment ONCE
CR Chest - 2 Views Urgent
Comment:
Reason For Exam: AMS
05/27/25 12:03
Urinalysis Reflex To Culture Urgent
05/27/25 12:14
COVID-19 Antigen Urgent
Source: Nasal Swab
Influenza A+B Rapid Molecular Urgent
ELIZABETH Source: Nasal Swab
Specimen Description:
05/27/25 12:26
US Arms, Right [US Periph Venous UPPER Ext RT] Urgent
Comment:
Reason For Exam: swelling, recent midline placement and removal
05/27/25 12:36
Complete Blood Count/With Diff Urgent
Comprehensive Metabolic Panel Urgent
Free T4 Urgent
Lactic Acid Urgent
TSH Reflex To Free T4 Urgent
Blood Culture Q30M
ELIZABETH Source: Blood/Venous
Specimen Description:
05/27/25 14:07
Cefepime HCl [Maxipime] 2,000 mg IV NOW STA
05/27/25 14:13
IRAD CONSULT Urgent
Consulting Provider: Rylan Robertson
Was physician already notified: Yes
Procedure being ordered, including laterality if applicable: Central venous access
Acknowledgement that appropriate orders are entered: Yes
05/27/25 14:20
Vancomycin [Vancocin] 1,500 mg 0.9% Sodium Chloride 500 ml [Nss] 500 ml IV NOW
05/27/25 14:22
NT-proBNP Urgent
05/27/25 15:30
Add On- LAB Routine
Tests Added?: iron, ferritin, tibc, folate, vit b12
Add On- LAB Urgent
Tests Added?: tacrolimus level
05/27/25 15:42
Type+Screen Urgent
Procalcitonin Urgent
If negative, will antibiotics be d/c'd or not started: Yes
Does the patient have renal or hepatic impairment?: No
Any recent (w/in 48 hrs) physiologic stress (CPR, rhabdo): No
Blood Culture Q30M
ELIZABETH Source: Blood/Venous
Specimen Description:
05/27/25 15:48
Albumin Human 25% 50 ml [Flexbumin 25% For Hemodialysis] 12.5 grams IV HD-Q1HPRN PRN
Epoetin Eder-Epbx [Retacrit] 10,000 units IV HD-ONCE ONE
Epoetin Eder-Epbx [Retacrit] 2,000 units IV HD-ONCE ONE
Heparin 500 units IV HD-ONCE ONE
Heparin 500 units IV HD-ONCE ONE
Heparin See Dose Instructions INTRACATH HD-ONCE ONE
Mannitol 25% 12.5 grams IV HD-Q1HPRN PRN
Sodium Chloride [Sodium Chloride 4 Meq/ml For Hemodialysis] 10 ml IV HD-Q1HPRN PRN
Hemodialysis treatment As Directed
Treatment date:: 05/27/25
Treatment type: Hemodialysis
Ultrafiltration (kg): 3
Treatment time (duration): 3 hours 30 minutes
Use dialysis access:: Tunneled Cath
Dialyzer:: Optiflux 160
Blood flow rate minimum: 350
Blood flow rate maximum: 400
Dialysis flow rate: 600 mL/min
Dialysate temperature: 35 degrees Celsius
Sodium (Na): 140
Potassium (K): 3
Calcium (Ca): 2.5
Bicarbonate (HCO3): 35
05/27/25 15:50
Ferritin Urgent
Comment: pre-Hemodialysis lab, to be drawn by HD nurse
Iron Urgent
Comment: pre-Hemodialysis lab, to be drawn by HD nurse
Total Iron Binding Urgent
Comment: pre-Hemodialysis lab, to be drawn by HD nurse
05/27/25 16:06
Admit/Transfer Patient As Directed
Co-Sign Provider:
Level of Care: Inpatient admission
Assign to:: IMU- Intermediate Care
Physician / Group: Primo
Diagnosis: pneumonia, volume overload, hypothyroidism
Reason for Hospitalization: IV abx, volume management with dialysis
Expected length of stay greater than two midnights?: Yes
ELOS- Estimated Length of Stay in days: 3
I certify the patient meets the requirements for IP care: Yes
05/27/25 16:07
PRN Pain Medication Management As Directed
May give lesser potent ordered pain med per pt: Yes
preference::
Protocol:: Medication orders for pain may be administered in a
manner that supports deferring to patient preference
when the pt is:
- Requesting an ordered lesser potent pain medication.
Least to most potent pain medications are defined
as: acetaminophen < NSAID < tramadol < opioids
(morphine, oxycodone, hydromorphone).
- Requesting a lesser dose of the same medication IF
ORDERED.
- Requesting a less intrusive route of administration
if both routes are prescribed by the provider (PO <
IV).
05/27/25 16:09
Code Status As Directed
Resuscitation Status: Do not resuscitate
Based on pt advanced directive or healthcare POA form: Yes
Physician note:: PER [place] [employer]
DNR Bracelet Application ONCE
Abnormal Lab Results
05/27/25
12:36
RBC 2.25 L 10^6/uL
(4.20-5.40)
Hgb 7.4 L g/dL
(12.0-16.0)
Hct 22.2 L %
(37.0-47.0)
MCH 32.9 H pg
(27.0-31.0)
RDW 16.6 H %
(11.5-14.5)
MPV 11.1 H fL
(7.4-10.4)
Absolute Lymphs (auto) 0.8 L 10^3/uL
(1.2-3.4)
Neutrophils % 78.5 H %
(42.2-75.2)
Lymphocytes % 11.9 L %
(20.5-51.1)
Sodium 134 L mmol/L
(135-145)
BUN 38 H mg/dl
(7-17)
Creatinine 2.9 H mg/dL
(0.6-1.0)
Glucose 58 L mg/dl
(70-99)
Calcium 7.6 L mg/dl
(8.4-10.2)
Albumin 3.2 L g/dl
(3.5-5.0)
TSH (Reflex) 35.60 H uIU/ml
(0.47-4.68)
05/27/25 12:36
05/27/25 12:36
Vital Signs
Initial and Last Documented VS:
Initial Vital Signs
Temp
95.9 F L
05/27/25 10:38
Last Documented Vital Signs
Temp Pulse Resp BP Pulse Ox
95.9 F L 71 15 97/83 98
05/27/25 10:38 05/27/25 15:45 05/27/25 15:45 05/27/25 15:24 05/27/25 15:45
<Kathia Mcfarland PA-C - Last Filed: 05/27/25 16:27>
MDM/Problems Addressed
Differential Diagnosis Includes:
75yoF presenting from her [facility] for AMS. She was reportedly hallucinating and speaking to someone who is not in the room. Complex PMHx and is due for dialysis today. Patient is A&Ox3 on arrival although speech is dysarthric which is
apparently baseline for her. She does appear volume overloaded. Rectal temp 95.9. Oxygen saturation 98% on room air. Differential diagnosis includes but is not limited to: uremia, infection/sepsis, thyroid dysfunction, consider CVA
Initial ED plan: Check septic workup, TSH, COVID/flu swab, CXR, and CT head. IV team consulted for access.
<Kathia Mcfarland PA-C - Last Filed: 05/27/25 16:27>
*Pulse Oximetry
SaO2: 95
Oxygen Mode of Delivery: Room air
Patient hypoxic: no
*EKG
Interpreted by ED Provider?: Yes
EKG Intrepretation Date: 05/27/25
Heart Rate: 76
Rate: normal
Rhythm: sinus
[place]: normal axis
QRS Pattern: right bundle branch block and other (LAFB)
Ischemia: non-specific ST changes
*Critical Care Note
Total Time (30-74mins, 75-104mins- exclusive of procedures): Not Applicable
<Kathia Mcfarland PA-C - Last Filed: 05/27/25 16:27>
Update Note
Update Note:
Labs reveal anemia with hemoglobin of 7.4 which is down from 10-11 range during her March hospitalization. CXR shows pulmonary edema and possible pneumonia vs. atelectasis in RLL. CT head negative. Venous duplex of RUE ordered due to swelling prior
to IV placement which shows thrombus in cephalic vein. Blood cultures and IV cefepime/vancomycin ordered. IR consulted due to very difficult IV access/lack of options given multiple limb alerts. Patient admitted for further management.
ED Attending Note
<Kathia Mcfarland PA-C - Last Filed: 05/27/25 16:27>
-
Portions of this chart may have been created with voice recognition software.� Occasional wrong word or��sound alike� substitutions may have occurred due to the inherent limitations of voice recognition software.
<Deuce Garcia MD - Last Filed: 05/27/25 14:17>
ED Attending Note
Patient seen and examined by attending physician: Yes
ED Attending Note:
Patient with history of end-stage renal disease on hemodialysis (Sunday, Sunday, Sunday), presents to ED secondary to mental status change this morning. Upon arrival, patient is alert and awake. Patient does report coughing recently. Denies
vomiting or diarrhea. Denies chest pain or shortness of breath. Denies recent change in medications or diet. Denies headache. Denies loss of sensation or weakness.
Physical Exam
General: mild distress, not acutely ill. afebrile
Head: nc/at. eomi
Neck: supple. no jvd
Heart: s1/s2 regular rate and rhythm
Lungs: mild respiratory distress. rhonchi bilaterally
Abdomen: normal bowel sounds. not tender.
Neuro: alert and oriented x 3. no focal neurological deficits
Skin: no rash. generalized edema noted
Psychiatric: well kept. interactive and cooperative
Extremities: LE b/l edema.
History and exam concerning for potential sepsis, likely secondary to pneumonia, as noted on chest x-ray along with patient's URI symptoms. Patient will be admitted for IV antibiotics and scheduled dialysis.
Blood culture pending.
Discharge Plan
Departure
Patient Disposition: Admit
Date of Disposition: 05/27/25
Time of Disposition: 14:20
Presentation/result/management discussed w/ accepting MD/DO: Hospitalist
Discharge Problem:
Altered mental status, Pneumonia, Anasarca, Elevated TSH, Acute cephalic vein thrombosis
Prescriptions:
No Action
aspirin 81 MG tablet,delayed release (DR/EC)
81 mg PO DAILY
ferrous sulfate [FeroSul] 325 MG tablet
325 mg PO QPM
levothyroxine 125 MCG tablet
125 mcg PO DAILY
multivitamin with folic acid [Tab-A-Henry] 1 TABLET tablet
1 tab PO DAILY
ropinirole 2 MG tablet
2 mg PO HS
ammonium lactate 12 % Lotion
1 applic TOPICAL BID
loperamide 2 mg Capsule
2 mg PO Q6HPRN PRN (Reason: DAIRRHEA)
midodrine 5 mg Tablet
5 mg PO TID
acetaminophen 650 mg Tablet Extended Release
650 mg PO Q8HPRN PRN (Reason: KNEE PAINS)
sirolimus 1 mg Tablet
1 mg PO HS
bisacodyl [Dulcolax (bisacodyl)] 10 mg Suppository
10 mg CA DAILYPRN PRN (Reason: IF NO BM AFTR MOM)
omeprazole 20 mg Capsule,Delayed Release(Dr/Ec)
20 mg PO DAILY
tacrolimus 0.5 mg Capsule
0.5 mg PO DAILY
cholecalciferol (vitamin D3) [Vitamin D3] 25 mcg (1,000 unit) Tablet
50 mcg PO DAILY
sacubitril-valsartan [Entresto] 24-26 mg Tablet
1 tab PO BID
calcium acetate 667 mg Tablet
667 mg PO AC
pravastatin 40 mg Tablet
40 mg PO HS
Tums 300 mg (750 mg) Tablet,Chewable
300 mg PO AC
Tums 300 mg (750 mg) Tablet,Chewable
600 mg PO HS
Referrals:
Francisco Pickard MD [Family Provider, Family Practice]
Interventions
Interventions:
*Risk Screen - Suicide Last Done: 05/27/25 10:38
*General Assessment Last Done: 05/27/25 10:38
*Neglect/Abuse Screening Last Done: 05/27/25 11:53
*ED- Fall Risk Assessment Last Done: 05/27/25 11:53
*ED COVID-19 Vaccine History Last Done: 05/27/25 11:53
ED- Cardiac Assessment Last Done: 05/27/25 12:02
ED- Neurological Assessment Last Done: 05/27/25 12:02
ED- Pulmonary Assessment Last Done: 05/27/25 12:02
ED Swallowing Screen Last Done: 05/27/25 12:02
Discharge Date and Time
Print Language: [id number]
[2025-05-27 12:46] LABS: Hematocrit 22.2 % (37.0-47.0); Hemoglobin 7.4 g/dL (12.0-16.0); Mean Corp Hgb Conc. 33.3 g/dL (33.0-37.0); Mean Corpuscular Volume 98.7 fL (81.0-99.0); Nucleated Red Blood Cells % 0 %; Platelet Count 234 10^3/uL (130-400); Red Cell Dist. Width 16.6 % (11.5-14.5)
[2025-05-27 12:56] LABS: COVID-19 Antigen Negative (Negative)
[2025-05-27 13:08] LABS: ALT (SGPT) 15 U/L (0-35); AST (SGOT) 27 U/L (14-36); Albumin 3.2 g/dl (3.5-5.0); Alkaline Phosphatase 83 U/L (38-126); Blood Urea Nitrogen 38 mg/dl (7-17); Calcium 7.6 mg/dl (8.4-10.2); Carbon Dioxide 27 mmol/L (22-30); Chloride 99 mmol/L (98-107); Glucose 58 mg/dl (70-99); Potassium 4.1 mmol/L (3.5-5.1); Sodium 134 mmol/L (135-145); Total Protein 6.4 g/dl (6.3-8.2); eGFR 16.27
[2025-05-27 14:11] LABS: Glucose - Point of Care 86 mg/dl (70-99)
--- NOTE | 2025-05-27 14:59 | HPS.HSE ---
Family Physician
-
Family Physician: Francisco Pickard MD
Chief Complaint
-
Change in mental status
History of Present Illness
Patient is a 75 y/o female past medical history of ESRD on HD, Ischemic Cardiomyopathy s/p Heart Transplant, Coronary Artery Disease and Hypothyroidism who presents with change in mental status. Patient resides at [facility].
Patient was noted by staff to be more confused than usual. She was hallucinating and speaking to someone who was not in the room. Staff also noted that she was more edematous than normal particularly in the face and abdomen. Patient reports no
specific complaints at the present time.
Medical History
Past Medical History
Past Medical History: Reports Other
Additional Past Medical History:
ESRD on HD MoWeFr
Ischemic Cardiomyopathy s/p Heart Transplant
Coronary Artery Disease
Hypothyroidism
Dysphagia
Restless Leg Syndrome
Right Lower Extremity DVT
Past Surgical History: Reports Other
Additional Past Surgical History:
Heart Transplant - 2016
Cholecystectomy
Social History
Tobacco: Non-smoker
Alcohol: Occasional (2-3 drinks per year)
Drug: None
Living: Longterm
Family History
Family History: Other (Father: Heart Failure )
Allergies / Home Medications
Allergies reflects when Allergies were last updated in [email or web address].
Home Medications with original date entered in [email or web address]
Allergy/Medication List:
Allergies
Allergy/AdvReac Type Severity Reaction Status Date / Time
MEERA Inhibitors Allergy Unknown Verified 05/27/25 10:40
Beta-Blockers Allergy Unknown Verified 05/27/25 10:40
(Beta-Adrenergic Bloc
carvedilol (From Coreg) Allergy Unknown Verified 05/27/25 10:40
hydralazine Allergy Unknown Verified 05/27/25 10:40
Home Medications
aspirin 81 mg tablet,delayed release 81 mg PO DAILY Blood Clot Prevention/Tx 06/07/19
ferrous sulfate 325 mg (65 mg iron) tablet (FeroSul) 325 mg PO QPM Supplement 06/07/19
levothyroxine 125 mcg tablet 125 mcg PO DAILY Thyroid 06/07/19
multivitamin with folic acid 400 mcg tablet (Tab-A-Henry) 1 tab PO DAILY Supplement 06/07/19
ropinirole 2 mg tablet 2 mg PO HS Anti-Parkinson Agent 06/07/19
acetaminophen 650 mg tablet,extended release 650 mg PO Q8HPRN PRN KNEE PAINS 03/09/25
ammonium lactate 12 % lotion 1 applic topical BID B/L FEET 03/09/25
bisacodyl 10 mg rectal suppository (Dulcolax (bisacodyl)) 10 mg [place] DAILYPRN PRN IF NO BM AFTR MOM 03/09/25
calcium acetate 667 mg tablet 667 mg PO AC RENAL 03/09/25
cholecalciferol (vitamin D3) 25 mcg (1,000 unit) tablet (Vitamin D3) 50 mcg PO DAILY Supplement 03/09/25
loperamide 2 mg capsule 2 mg PO Q6HPRN PRN DAIRRHEA 03/09/25
midodrine 5 mg tablet 5 mg PO TID Blood Pressure 03/09/25
omeprazole 20 mg capsule,delayed release 20 mg PO DAILY GERD 03/09/25
sacubitril 24 mg-valsartan 26 mg tablet (Entresto) 1 tab PO BID Heart Failure 03/09/25
sirolimus 1 mg tablet 1 mg PO HS 03/09/25
tacrolimus 0.5 mg capsule, immediate-release 0.5 mg PO DAILY 03/09/25
calcium carbonate (Tums) 300 mg PO AC 05/27/25
calcium carbonate (Tums) 600 mg PO HS 05/27/25
pravastatin 40 mg tablet 40 mg PO HS 05/27/25
Review of Systems
-
Unable to obtain full review of systems at this time due to: Acuity
A 12 point ROS was completed and negative except as noted: No
Physical Exam
Vital Signs
Vital Signs
Temp Pulse Resp BP Pulse Ox
95.9 F L 73 11 120/80 95
05/27/25 10:38 05/27/25 14:15 05/27/25 14:15 05/27/25 12:01 05/27/25 12:12
Physical Exam
General: Appears Chronically Ill and Other (Lethargic, Open eyes to some verbal stimuli but unable to answer most questions appropriately)
HEENT: Anicteric and Other (Periorbital edema)
Respiratory: Other (Coarse breath sounds throughout, difficulty ausculate due to frequent moaning.)
Cardiac: S1/S2 and Regular Rhythm
GI: Soft and Non Tender
Rectal: Deferred by Provider
Musculoskeletal: Other (Pitting Edema bilateral lower extremities)
Skin: Warm and Dry
Neuro: Other (Lethargic but arousable, but unable to follow commands)
Laboratory Results
-
05/27/25 12:36
05/27/25 12:36
Laboratory Results
Lactic Acid 1.3 mmol/L (0.7-2.0) 05/27/25 12:36
Total Bilirubin 0.9 mg/dl (0.2-1.3) 05/27/25 12:36
AST 27 U/L (14-36) 05/27/25 12:36
ALT 15 U/L (0-35) 05/27/25 12:36
Alkaline Phosphatase 83 U/L (38-126) 05/27/25 12:36
Chest X-Ray:
Findings suggest congestive heart failure/pulmonary edema. Consolidation in the right lower lobe could be pneumonia versus compressive atelectasis
There is a widening of superior mediastinum. Patient has difficulty cooperating with positioning which may be the etiology
Head CT:
There are moderate changes of cortical atrophy and chronic ischemic disease
Right Upper Extremity Venous Ultrasound:
There is no evidence of deep venous thrombosis proximal to the elbow. There is occlusive clot in the mid and distal cephalic vein, and nonocclusive clot in the cephalic vein
Data Reviewed
-
Diagnostic Radiology: Report Reviewed by me
CT Scan: Report Reviewed by me
Lab Data: Labs Reviewed by me
Impression/Plan
-
Change in Mental Status, suspect multi-factorial related to Volume Overload, Possible Pneumonia, Hypothermia and Hypothyroidism
-Patient will be kept NPO until mentation improves
-Patient previously on Advanced Dysphagia diet per [place] records - Consult Speech
Acute Volume Overload
-Consult Cardiology and Nephrology
-Check Echocardiogram to evaluate for possible changes that could be contributing to worsening overload
-Attempt to mange volume with dialysis - Unclear how much urine patient makes at home
Possible Pneumonia vs Atelectasis
-Empiric antibiotics with ceftriaxone and doxycycline given hypothermia
-Procalcitonin is pending
Hypothyroidism, appears symptomatic with hypothermia, hypoglycemia
-Medication review revealed patient was being given calcium supplements 30 minutes after administration of levothyroxine which was likely preventing absorption
-Start levothyroxine IV until able to resume oral levothyroxine
Normocytic Anemia
-Hgb lower than last admission in March 2025 10.4 -> 7.4
-Check iron studies, vitamin b12 and folic acid
-Heme-test stools
ESRD on HD MoWeFr
-Consult Nephrology for HD
-Monitor Daily Weights
Chronic Hypotension
-Resume midodrine when able to take oral neds
Ischemic Cardiomyopathy s/p Heart Transplant - 2016
-Resume sirolimus and tacrolimus when able to take oral meds
-Need to address Entresto use in dialysis patient
Coronary Artery Disease
-Resume aspirin and statin when able to take oral meds
Right Lower Extremity DVT - March 2025
-Apixaban is no longer listed on patient's medication list - Unclear why it was stopped
-Given her worsening anemia will continue off Apixaban for now
DVT proph: SC Heparin
Code Status: DNR / DNI
--- NOTE | 2025-05-27 15:10 | W.CON.NEPH ---
Consultation
-
Date/Time Consultation Requested: 05/27/25 2pm
Date/Time Consultation Performed: 05/27/25 3pm
Requesting Provider: Dr. Tillman
Performing Provider: Dr. Alarcon
Reason for Consultation: ESRD
Medical History
-
Chief Complaint: confusion
History of Present Illness:
74y/o F with ESRD on HD MWF at [facility] through a right femoral CVC HD catheter for the last 1yr due to lack of access, heart transplant on sirolimus, tacrolimus, Entresto. She has chronic hypotension on midodrine ATC, hypothyroidism on
levothyroxine with elevated TSH but normal FT4, hyperphosphatemia controlled on calcium acetate who presented to the emergency department with confusion.
She was recently in the hospital with cellulitis back in March. She was found to have a R femoral DVT related to HD CVC. She was discharged on eliquis, but it is not on her current list.
Past Medical History
CAD, Hypothyroidism, DM2, ESRD (HD MWF), cardiomyopathy s/p heart transplant, hyperphosphatemia, hypotension on midodrine, GERD, RLS. RLE DVT
Past Surgical History: Other (Heart transplant (2017); pacemaker; LVAD and Cholecystectomy)
Social History
Tobacco: Former Smoker
Alcohol: Occasional
Drug: None
Living: Group Home
Family History
Family History: Not Pertinent
Allergies / Home Medications
Allergy/AdvReac Type Severity Reaction Status Date / Time
MEERA Inhibitors Allergy Unknown Verified 05/27/25 10:40
Beta-Blockers Allergy Unknown Verified 05/27/25 10:40
(Beta-Adrenergic Bloc
carvedilol (From Coreg) Allergy Unknown Verified 05/27/25 10:40
hydralazine Allergy Unknown Verified 05/27/25 10:40
�Medication �Instructions �Recorded �Confirmed �Type
aspirin 81 mg tablet,delayed 81 mg PO DAILY Blood Clot 06/07/19 05/27/25 History
release Prevention/Tx
ferrous sulfate 325 mg (65 mg 325 mg PO QPM Supplement 06/07/19 05/27/25 History
iron) tablet (FeroSul)
levothyroxine 125 mcg tablet 125 mcg PO DAILY Thyroid 06/07/19 05/27/25 History
multivitamin with folic acid 400 1 tab PO DAILY Supplement 06/07/19 05/27/25 History
mcg tablet (Tab-A-Henry)
ropinirole 2 mg tablet 2 mg PO HS Anti-Parkinson Agent 06/07/19 05/27/25 History
acetaminophen 650 mg 650 mg PO Q8HPRN PRN KNEE PAINS 03/09/25 05/27/25 History
tablet,extended release
ammonium lactate 12 % lotion 1 applic topical BID B/L FEET 03/09/25 05/27/25 History
bisacodyl 10 mg rectal suppository 10 mg [place] DAILYPRN PRN IF NO BM 03/09/25 05/27/25 History
(Dulcolax (bisacodyl)) AFTR MOM
calcium acetate 667 mg tablet 667 mg PO AC RENAL 03/09/25 05/27/25 History
cholecalciferol (vitamin D3) 25 50 mcg PO DAILY Supplement 03/09/25 05/27/25 History
mcg (1,000 unit) tablet (Vitamin
D3)
loperamide 2 mg capsule 2 mg PO Q6HPRN PRN DAIRRHEA 03/09/25 05/27/25 History
midodrine 5 mg tablet 5 mg PO TID Blood Pressure 03/09/25 05/27/25 History
omeprazole 20 mg capsule,delayed 20 mg PO DAILY GERD 03/09/25 05/27/25 History
release
sacubitril 24 mg-valsartan 26 mg 1 tab PO BID Heart Failure 03/09/25 05/27/25 History
tablet (Entresto)
sirolimus 1 mg tablet 1 mg PO HS 03/09/25 05/27/25 History
tacrolimus 0.5 mg capsule, 0.5 mg PO DAILY 03/09/25 05/27/25 History
immediate-release
calcium carbonate (Tums) 300 mg PO AC 05/27/25 05/27/25 History
calcium carbonate (Tums) 600 mg PO HS 05/27/25 05/27/25 History
pravastatin 40 mg tablet 40 mg PO HS 05/27/25 05/27/25 History
Review of Systems
-
no pain, no SOB
All other systems: Negative unless noted
Physical Exam
Vital Signs
Vital Signs
Temp Pulse Resp BP Pulse Ox
95.9 F L 73 11 120/80 95
05/27/25 10:38 05/27/25 14:15 05/27/25 14:15 05/27/25 12:01 05/27/25 12:12
Lab Results
WBC 6.8 10^3/uL (4.8-10.8) 05/27/25 12:36
RBC 2.25 10^6/uL (4.20-5.40) L 05/27/25 12:36
Hgb 7.4 g/dL (12.0-16.0) L 05/27/25 12:36
Hct 22.2 % (37.0-47.0) L 05/27/25 12:36
Plt Count 234 10^3/uL (130-400) 05/27/25 12:36
Sodium 134 mmol/L (135-145) L 05/27/25 12:36
Potassium 4.1 mmol/L (3.5-5.1) 05/27/25 12:36
Chloride 99 mmol/L (98-107) 05/27/25 12:36
Carbon Dioxide 27 mmol/L (22-30) 05/27/25 12:36
BUN 38 mg/dl (7-17) H 05/27/25 12:36
Creatinine 2.9 mg/dL (0.6-1.0) H 05/27/25 12:36
eGFR 16.27 05/27/25 12:36
Glucose 58 mg/dl (70-99) L 05/27/25 12:36
Calcium 7.6 mg/dl (8.4-10.2) L 05/27/25 12:36
Albumin 3.2 g/dl (3.5-5.0) L 05/27/25 12:36
Laboratory Tests
03/24/25
06:10
Hgb 10.4 L
Physical Exam
Patient is difficult to arouse and in no distress. Mood and affect were pleasant, insight and judgment were good. Pupils are equal round and reactive to light, extraocular movements are intact, sclera were anicteric. Hearing was normal, ears and
nose are intact. Oropharynx was clear. Neck was supple with trachea midline and no thyromegaly. Heart was regular rate and rhythm without rubs. Lower extremities with 3+ edema. Lungs were coarse to auscultation bilaterally and with normal
excursion. Abdomen was soft, nontender, with normal active bowel sounds, and no hepatosplenomegaly. Skin was without rash and with normal turgor. Periorbital edema
Data Reviewed
-
Radiology: Image Personally Visualized and interpreted (05/27/25 by my reading. rotated, vascular prominence, right sided infiltrate)
CT Scan: Report Reviewed by me (05/27/[address] chronic ischemic changes)
Ultrasound: Report Reviewed by me ( 05/27/25 Right cephalic vein clot)
Labs: Labs Reviewed by me
Old Records: Reviewed
Assessment/Plan
-
IMP:
Right LE DVT- catheter associated
right cephalic vein thrombus
ESRD [facility]- MWF
DM2
cardiomyopathy, Heart Transplant 2016
hypotension on midodrine
Hypothyroidism
CAD
GERD
HLD
mental status change
dysfunctional LUE AVG
Plan:
HD today
she is volume overloaded, but UF may be difficult with hypotension
continue midodrine
eliquis for RLE DVT
--- NOTE | 2025-05-27 15:20 | CON.CAR ---
Addendum entered and electronically signed by Waylon Boggs MD 05/28/25 07:36:
This addendum should be dated May 27, 2025
I saw and examined the patient.
The CRUDE OIL DRIVER or PA's note was reviewed and I agree with the note.
Comment: General: Sedate but arousable
Neck: Supple, no JVD, HJR, carotids +2 B/L, no bruits bilaterally.
Heart: Non displaced PMI, RRR, no murmurs, No S3, S4, no rubs.
Lungs: Scattered rhonchi
Abdomen: Normal bowel sounds, soft, non-tender, non-distended.
Extremities: No clubbing, cyanosis or edema bilaterally.
Neuro: Sedate but arousable
Keshia has a history of ischemic cardiomyopathy with history of heart transplant 2015 at [place], end-stage renal disease on hemodialysis, chronic hypotension on midodrine, hypothyroidism, hyperlipidemia, reflux, right lower extremity DVT in March
2024. She presents from [facility] due to change in mental status. She is unable to give history and is presently sedate and minimally arousable. Cardiology is consulted for acute CHF
Await nephrology input regarding dialysis. Check echocardiogram. Patient has decreasing mental status and is at increased risk for sepsis and would consider treating with broad-spectrum antibiotics. Hold Entresto. Discussed with primary service.
Patient is DNR
Original Note:
Consultation
Consultation Request
Date/Time Consultation Requested: 05/27/2025
Date/Time Consultation Performed: 05/27/2025
Requesting Provider: Dr. Tillman
Performing Provider: Alice Lewis PA-C for Dr. Boggs
Reason for Consultation: Acute HF and history of heart transplant
Medical History
-
Chief Complaint: change in mental status
History of Present Illness:
Patient is a 75 yo F with PMH of ischemic cardiomyopathy with history of heart transplant in 2015 at [place], ESRD on HD MWF, chronic hypotension on midodrine, hypothyroidism, HLD, GERD, RLE DVT 03/2025 who presented to [facility] ER from [facility] due
to change in mental status. She is a poor historian and is able to give limited history. Was able to open her eyes and tell me she was at [facility]. Unclear baseline mental status. Noted to have anasarca, on HD MWF as OP. proBNP >53184 and
CXR with findings suggestive of CHF. Cardiology consulted for evaluation. Denies pain or SOB.
PMH:
Recent admission for RLE DVT and anemia 03/20/2025 until 03/24/2025
ESRD on HD
s/p heart transplant at [place] due to ischemic CM 2015
IDDM
HTN
HLD
Hypothyroidism
Chronic hypotension on midodrine
Past Medical History
Past Medical History: Other (in HPI)
Past Surgical History: Cardiac (Heart transplant 2015) and Cholecystectomy
Social History
Tobacco: Former Smoker
Alcohol: None
Drug: None
Living: [facility]
Family History
Family History: Early CAD
Allergies / Home Medications
Allergy/AdvReac Type Severity Reaction Status Date / Time
MEERA Inhibitors Allergy Unknown Verified 05/27/25 10:40
Beta-Blockers Allergy Unknown Verified 05/27/25 10:40
(Beta-Adrenergic Bloc
carvedilol (From Coreg) Allergy Unknown Verified 05/27/25 10:40
hydralazine Allergy Unknown Verified 05/27/25 10:40
�Medication �Instructions �Recorded �Confirmed �Type
aspirin 81 mg tablet,delayed 81 mg PO DAILY Blood Clot 06/07/19 05/27/25 History
release Prevention/Tx
ferrous sulfate 325 mg (65 mg 325 mg PO QPM Supplement 06/07/19 05/27/25 History
iron) tablet (FeroSul)
levothyroxine 125 mcg tablet 125 mcg PO DAILY Thyroid 06/07/19 05/27/25 History
multivitamin with folic acid 400 1 tab PO DAILY Supplement 06/07/19 05/27/25 History
mcg tablet (Tab-A-Henry)
ropinirole 2 mg tablet 2 mg PO HS Anti-Parkinson Agent 06/07/19 05/27/25 History
acetaminophen 650 mg 650 mg PO Q8HPRN PRN KNEE PAINS 03/09/25 05/27/25 History
tablet,extended release
ammonium lactate 12 % lotion 1 applic topical BID B/L FEET 03/09/25 05/27/25 History
bisacodyl 10 mg rectal suppository 10 mg [place] DAILYPRN PRN IF NO BM 03/09/25 05/27/25 History
(Dulcolax (bisacodyl)) AFTR MOM
calcium acetate 667 mg tablet 667 mg PO AC RENAL 03/09/25 05/27/25 History
cholecalciferol (vitamin D3) 25 50 mcg PO DAILY Supplement 03/09/25 05/27/25 History
mcg (1,000 unit) tablet (Vitamin
D3)
loperamide 2 mg capsule 2 mg PO Q6HPRN PRN DAIRRHEA 03/09/25 05/27/25 History
midodrine 5 mg tablet 5 mg PO TID Blood Pressure 03/09/25 05/27/25 History
omeprazole 20 mg capsule,delayed 20 mg PO DAILY GERD 03/09/25 05/27/25 History
release
sacubitril 24 mg-valsartan 26 mg 1 tab PO BID Heart Failure 03/09/25 05/27/25 History
tablet (Entresto)
sirolimus 1 mg tablet 1 mg PO HS 03/09/25 05/27/25 History
tacrolimus 0.5 mg capsule, 0.5 mg PO DAILY 03/09/25 05/27/25 History
immediate-release
calcium carbonate (Tums) 300 mg PO AC 05/27/25 05/27/25 History
calcium carbonate (Tums) 600 mg PO HS 05/27/25 05/27/25 History
pravastatin 40 mg tablet 40 mg PO HS 05/27/25 05/27/25 History
Review of Systems
-
History Source: Patient
All other systems: Negative unless noted
Physical Exam
Vital Signs
Temp Pulse Resp BP Pulse Ox
95.9 F L 73 11 120/80 95
05/27/25 10:38 05/27/25 14:15 05/27/25 14:15 05/27/25 12:01 05/27/25 12:12
Lab Results
05/27/25 12:36
05/27/25 12:36
Impression / Plan
-
PCP Dr. Francisco Pickard
Cardiology: [place] transplant team
Impression:
Presented with change in mental status including hallucinations
Anasarca
Acute HF unknown EF
Acute on chronic anemia
Elevated TSH
Recent admission for RLE DVT and anemia 03/20/2025 until 03/24/2025
ESRD on HD
CAD
s/p heart transplant at [place] due to ischemic CM 2015
IDDM
HTN
HLD
Hypothyroidism with elevated TSH
Chronic hypotension on midodrine
Plan:
- Patient presented with change in mental status -she is lethargic, but was able to tell me who she is and that she was at [facility]. She continually grunted/moaned through my examination. head CT without acute abnormalities noted
- has history of heart transplant in 2016 at [place]
- Noted to have anasarca on examination. peripheral US negative for DVT
- proBNP >31662. Chest x-ray poor study due to positioning, however with findings suggestive of CHF/pulmonary edema volume mgmt through HD. nephrology following
- on entresto as OP for prior ischemic CM. not ideal medication for patient as on HD, would hold. was on diltiazem in past, however not on present med list. remains with marginal BP on midodrine 5mg TID, continue, uptitrate as needed
- check echo
- hgb on arrival 7.4. continue asa. on daily iron as OP. hemetest stool
- of note, had admission for RLE DVT 03/20/25 however is not presently listed as being on OAC.
- TSH noted to be elevated at 35. on synthroid as OP. defer adjustment to primary service
- continue OP prograf and cellcept
- will need to confirm code status with family/records at [facility]
- will attempt to obtain records from [place] transplant team
- d/w hospitalist team and nephrology
Data Reviewed
-
EKG: Tracing Personally Visualized and interpreted
Radiology: Report Reviewed by me
CT Scan: Report Reviewed by me
Ultrasound: Report Reviewed by me
Labs: Labs Reviewed by me
Old Records: Reviewed
--- NOTE | 2025-05-27 15:28 | W.PN.UPDATE ---
Addendum entered and electronically signed by Brenda Tillman MD 05/27/25 17:13:
I also updated daughter, Rachel. Rachel reports patient has had several episodes of increased swelling including periorbital swelling over past few months.
Addendum entered and electronically signed by Brenda Tillman MD 05/27/25 16:16:
updated daughter, Sherly
Addendum entered and electronically signed by Brenda Tillman MD 05/27/25 16:10:
*community acquired pneumonia/possible aspiration pneumonia
-Ceftriaxone/Doxy
-follow up cultures
Patient had central line placed in IR for access
Original Note:
Update Note
Progress Note Update
This is an addendum to H&P written by ALLY Coffey
I saw and examined the patient.
The SAND WORKER's note was reviewed and I agree with the note.
Comment:
Ms. Keshia Priest is a 75 yo woman with hx heart transplant at [place] [address] for ischemic cardiomyopathy, IDDM, essential HTN, HLD, ESRD on HD, CAD sent to the ER for change in mentation. She was unable to recognize her nurse which is unusual for
her. She was also hallucinating and speaking to someone who wasn't in the room.
Triage VS: T 95.9, P 73, RR 11, BP 120/80, SpO2 95%
On exam patient is ill appearing, intermittently screaming out, intermittently answering questions appropriately. She is diffusely edematous with periorbital edema, upper and lower extremity swelling. Lungs with decreased breath sounds.
LABS: WBC 6.8, Hg 7.4, PLT 234, Na 134, K+ 4.1, BUN 38, Cr 2.9, Glucose 58, T. Bili 0.9, AST 27, ALT 15, Alk Phos 83, TSH 35.6, free T4 0.98
EKG: NSR, RBBB, QTc 535, no significant change from prior
CXR
IMPRESSION:
Findings suggest congestive heart failure/pulmonary edema. Consolidation in the right lower lobe could be pneumonia versus compressive atelectasis
There is a widening of superior mediastinum. Patient has difficulty cooperating with positioning which may be the etiology
HEAD CT
IMPRESSION:
There are moderate changes of cortical atrophy and chronic ischemic disease
RUE US
IMPRESSION: There is no evidence of deep venous thrombosis proximal to the elbow. There is occlusive clot in the mid and distal cephalic vein, and nonocclusive clot in the cephalic vein
Altered Mental Status
-etiology may be heart failure versus pneumonia versus progressive dementia. Covid negative. Influenza negative. Additionally, TSH elevated at 35.6
-admit to telemetry
-NPO until ST Eval
-PT/OT
-see plans below
ESRD on HD
Volume Overload
-Renal consulted, plan for HD today with fluid removal
Hx Ischemic Heart Failure s/p Heart Transplant 2017 at [place]
Acute Heart Failure, unknown EF
-SNUFF PACKING MACHINE OPERATOR Aspirin
-SNUFF PACKING MACHINE OPERATOR Entresto
-SNUFF PACKING MACHINE OPERATOR immunosuppressants: Sirolimus 1mg PO qhs; Tacrolimus 0.5mg PO QD
-TTE
-Cardiology consulted
Hypothyroidism with elevated TSH
- patient receives Tums 30 minutes after her morning Synthroid thereby likely significant blocking absorption. We will stop Tums in the mornings. Patient will need repeat TFT's in 4 weeks. *given unclear she'll be able to take PO medications
tomorrow morning, will order Synthroid IV
Chronic Hypotension - SNUFF PACKING MACHINE OPERATOR Midodrine
Hyperlipidemia - SNUFF PACKING MACHINE OPERATOR Statin
Superficial venous thrombosis
-avoid blood thinners with low Hg, warm compresses
Anemia
-add on iron studies and monitor Hg closely, dilution may be contributing
-no e/o active bleeding
Hx DVT
-patient was discharged on Eliquis in March, but it is no longer on medication list. With drop in Hg, will continue to hold and order Hep subQ DVT PPx
DVT PPx Hep subQ
DNR
76 minutes spent on patient care
Remainder of plan per PA note
[2025-05-27] MEDS: MAXIPIME 2000 MG IV (15:44)
[2025-05-27] MEDS: VANCOCIN 530 MG IV (16:05)
[2025-05-27 16:22] LABS: Procalcitonin 0.10 ng/ml (0.0-0.25)
[2025-05-27 16:31] LABS: Glucose - Point of Care 59 mg/dl (70-99)
[2025-05-27] MEDS: DEXTROSE 50% SYRINGE 12.5 GRAMS IV (16:37)
[2025-05-27 17:03] LABS: Glucose - Point of Care 99 mg/dl (70-99)
[2025-05-27 17:53] LABS: Ferritin 625.0 ng/ml (11.1-264.0)
[2025-05-27] MEDS: HEPARIN 500 UNITS IV ×2 (18:15→19:15)
[2025-05-27 18:24] LABS: Folate 4.0 ng/ml (2.76-20); Vitamin B12 912 pg/ml (239-931)
[2025-05-27] MEDS: RETACRIT 10000 UNITS IV (19:25)
[2025-05-27] MEDS: RETACRIT 2000 UNITS IV (19:25)
[2025-05-27 19:49] LABS: Iron 46 ug/dl (37-170)
[2025-05-27 19:58] LABS: Total Iron Binding Capacity 149 ug/dl (265-497)
[2025-05-27] MEDS: MANNITOL 25% 12.5 GRAMS IV (20:04)
[2025-05-27] MEDS: FLEXBUMIN 25% FOR HEMODIALYSIS 12.5 GRAMS IV (20:05)
--- NOTE | 2025-05-27 20:17 | W.PN.NEPH.HD ---
Assessment
-
Seen on HD. no new issues. VSS, acces CVC ok
Progress Note - Hemodialysis
-
Date of Service: May 27, 2025
Duration: 30 minutes and 3 hours
Potassium Bath: 3
Calcium Bath: 2.5
Opti-Dialyzer: 160
Ultrafiltration: Other (3kg)
Blood Flow: 400
Dialysate Flow: 600
Heparin: 500x2
EPO: 69699 units
[2025-05-27] MEDS: HEPARIN 5200 UNITS INTRACATH (21:41)
[2025-05-27] MEDS: HEPARIN 5000 UNITS SC (22:06)
[2025-05-27] MEDS: VIBRAMYCIN 260 MG IV (22:07)
[2025-05-27] MEDS: REQUIP 2 MG PO (22:09)
[2025-05-27] MEDS: LEVOTHROID 90 MCG IV (22:09)
[2025-05-27] MEDS: RAPAMUNE 1 MG PO (22:09)
[2025-05-27] MEDS: ROCEPHIN 1000 MG IV (22:11)
[2025-05-27] MEDS: STERILE WATER FOR INJECTION 10 ML IV (22:11)
[2025-05-28] VITALS (62 sets, daily range): BP systolic 44–178; BP diastolic 24–142; BMI 22.2
[2025-05-28] MEDS: DEXTROSE 50% SYRINGE 12.5 GRAMS IV ×3 (00:34→04:19)
[2025-05-28 00:45] LABS: Glucose - Point of Care 49 mg/dl (70-99)
[2025-05-28 01:09] LABS: Glucose - Point of Care 78 mg/dl (70-99)
[2025-05-28] MEDS: LEVOPHED 250 IV ×3 (01:12→19:11)
--- NOTE | 2025-05-28 01:12 | W.PN.UPDATE ---
Update Note
Progress Note Update
~ 1 am - Asked to see patient for hypotension. Pt BP 59/45, HR 84, resp 21, 95% on room air. Pt w/fluid overload, HD patient. Started on Norepinephrine 2 mcg/min, titrate to keep SBP >90.
Pt w/hypoglycemia overnight, treated as per protocol.
[2025-05-28 02:06] LABS: Glucose - Point of Care 67 mg/dl (70-99)
--- NOTE | 2025-05-28 02:23 | PTCARENOTE ---
aaox1, awake to verbal, can follow commands. SR BBB >QT. Remains RA. Pt was completing her HD session at beginning of shift. per HD nurse, took off 2.3kilos. BP running soft during HD but stable. Pt third spacing +3, dependent edema. pt limb
restrictions for RUE-clot; LUE-avf; RLE-HD cath. LLE used for bps. Concern for pt taking her transplant meds but pt was able to swallow pills with applesauce. remains npo except pills until . triple lumen femoral central line on L side. Pt
remains pale. labs were drawn, await results.
bp's started dropping around 0000. RANGE CONSERVATIONIST at bedside. Levo started. continuing to trend bps.
attempt to straight cath for UA & bladder scan of 573cc. Unsure if bladder scan amount was third space fluid or urine. pt may be oliguric d/t since she is HD. 2 attempts at straight cath, no output. when removing catheter there were drops of blood.
Will continue to monitor.
[2025-05-28 02:28] LABS: Glucose - Point of Care 86 mg/dl (70-99)
[2025-05-28 02:30] LABS: Hematocrit 22.8 % (37.0-47.0); Hemoglobin 7.3 g/dL (12.0-16.0); Mean Corp Hgb Conc. 32.0 g/dL (33.0-37.0); Mean Corpuscular Volume 99.1 fL (81.0-99.0); Platelet Count 252 10^3/uL (130-400); Red Cell Dist. Width 16.6 % (11.5-14.5)
--- NOTE | 2025-05-28 02:33 | PTCARENOTE ---
pt glucose running low, prn dextrose given & sugar came up. will follow protocol and recheck in 2 hours. pt remains npo
[2025-05-28 02:46] LABS: Blood Urea Nitrogen 19 mg/dl (7-17); Calcium 8.1 mg/dl (8.4-10.2); Carbon Dioxide 27 mmol/L (22-30); Chloride 100 mmol/L (98-107); Estimated Creatinine Clearance 24 ml/min; Glucose 118 mg/dl (70-99); Magnesium 1.6 mg/dl (1.6-2.3); Potassium 3.6 mmol/L (3.5-5.1); Sodium 137 mmol/L (135-145); eGFR 30.89
[2025-05-28 04:29] LABS: Glucose - Point of Care 21 mg/dl (70-99)
[2025-05-28 04:56] LABS: Glucose - Point of Care 126 mg/dl (70-99)
[2025-05-28 06:42] LABS: Glucose - Point of Care 106 mg/dl (70-99)
[2025-05-28] MEDS: D10W 1000 IV (08:09)
[2025-05-28] MEDS: HEPARIN 5000 UNITS SC ×2 (08:10→20:18)
[2025-05-28] MEDS: VIBRAMYCIN 260 MG IV ×2 (08:10→20:17)
[2025-05-28] MEDS: PROGRAF 0.5 MG PO (08:23)
[2025-05-28] MEDS: ASPIR LOW (ENTERIC COATED) 81 MG PO (08:26)
[2025-05-28 08:36] LABS: Glucose - Point of Care 106 mg/dl (70-99)
--- NOTE | 2025-05-28 08:52 | W.PN.HOSP.TC ---
Today's Communication/Plan
-
Doubt sepsis but will wait for blood cultures
Acute on chronic heart failure with multiple organ failure
need Synthroid
Check cortisol
Goal of care discussion
Assessment / Plan
Assessment / Plan
Physical Exam
General: Appears Chronically Ill
HEENT: Anicteric and Other (Periorbital edema)
Respiratory: Other (Coarse breath sounds throughout, limited)
Cardiac: S1/S2, Murmur, tachycardia
GI: Soft and Non Tender
Rectal: No Peralta
Musculoskeletal: Other (Pitting Edema bilateral lower extremities)
Skin: dependent edema on right side of body ( limbs/ face/ abdomen/ groin)
Neuro: awake at times, known chronic slurred speech, followed simple commands
Psych: Calm
A/P
Change in Mental Status, TME, suspect multi-factorial related to Volume Overload, Possible Pneumonia, heart failure, hypoxia, Hypothermia and Hypothyroidism
Mentation seems to improve
CT head moderate changes of cortical atrophy and chronic ischemic disease
Hard to known baseline but seems poor at times.
Difficult to obtain accurate BP readings, was started on Levophed over night
-Patient previously on Advanced Dysphagia diet per [place] records - Consult Speech
ESRD with volume overload
-Check Echocardiogram to evaluate for possible changes that could be contributing to worsening overload
s/p left femoral line
Suspect bilateral pulmonary Atelectasis
negative procal
f/w culture
-Empiric antibiotics with ceftriaxone and doxycycline
Speech evaluation
Failure to thrive
# DVT
US showed right occlusive clot in the mid and distal cephalic vein, and nonocclusive clot in the cephalic vein
Hypothyroidism, appears symptomatic with hypothermia, hypoglycemia
-Medication review revealed patient was being given calcium supplements 30 minutes after administration of levothyroxine which was likely preventing absorption
-Start levothyroxine IV until able to resume oral levothyroxine
Anemia of chronic disease
Stable HGB
ESRD on HD MoWeFr
Hyponatremia
Chronic Hypotension
-Resume midodrine when able to take oral neds
Check cortisol
Acute on Chronic systolic heart failure/ Ischemic Cardiomyopathy s/p Heart Transplant - 2016
With multiple organ failure
-Resume sirolimus and tacrolimus when able to take oral meds
On pressure support
Coronary Artery Disease
-Resume aspirin and statin when able to take oral meds
Right Lower Extremity DVT - March 2025
-Apixaban is no longer listed on patient's medication list - Unclear why it was stopped
-Given her worsening anemia will continue off Apixaban for now
DVT proph: SC Heparin
Code Status: DNR / DNI
Total time spent to see the patient, examine the patient, review data and lab results, discuss treatment plan with patient, nursing staff around 55 minutes
Anticipated Discharge: > 48 hours
Subjective/Interval History
-
Date of Service: May 28, 2025
confused, restless at times
Objective Data
-
Labs:
Laboratory Results
05/28/25
02:11
WBC 9.0
Hgb 7.3 L
Hct 22.8 L
Plt Count 252
Sodium 137
Potassium 3.6
Chloride 100
Carbon Dioxide 27
BUN 19 H
Creatinine 1.7 H
Glucose 118 H
Calcium 8.1 L
Vital Signs:
Vital Signs
Temp Pulse Resp BP Pulse Ox
98.6 F 108 17 123/98 98
05/28/25 07:22 05/28/25 06:20 05/28/25 06:20 05/28/25 08:26 05/28/25 04:15
I&O
05/27/25 05/28/25 05/29/25
06:59 06:59 06:59
Output Total 0 / 0
Balance 0 / 0
--- NOTE | 2025-05-28 09:11 | CON.PUL ---
Consultation
Consultation Request
Date/Time Consultation Requested: 05/28/25
Date/Time Consultation Performed: 05/28/25
Performing Provider: Aric
Reason for Consultation: R/o PNA
Medical History
-
History of Present Illness:
Patient is a 75-year-old female with previous history of end-stage renal disease on HD, right lower extremity DVT, right upper extremity DVT, heart failure status post transplant on immunosuppressive's, chronic hypotension on midodrine presenting
from senior care due to increasing confusion. She had notable hallucinations, was not answering appropriately to staff. She was recently admitted to [facility] back in March for cellulitis. She has a history of poor access: Has a left
upper extremity fistula that is no longer working, she has active right upper extremity blood clots, she has a tunneled HD catheter in her right groin that has been used for the past year with active clot, she has a triple-lumen CVC placed in her
left Fem for access.
She is a DNR but no clear advanced directives are known. Ongoing confusion noted, she does not contribute meaningful HPI or ROS.
Past Medical History
Past Medical History: Other (see list below)
Social History
Tobacco: Non-smoker
Alcohol: None
Drug: None
Family History
Family History: Reviewed & Not Pertinent
Allergies / Home Medications
Allergies
Allergy/AdvReac Type Severity Reaction Status Date / Time
MEERA Inhibitors Allergy Unknown Verified 05/27/25 10:40
Beta-Blockers Allergy Unknown Verified 05/27/25 10:40
(Beta-Adrenergic Bloc
carvedilol (From Coreg) Allergy Unknown Verified 05/27/25 10:40
hydralazine Allergy Unknown Verified 05/27/25 10:40
Home Medications
�Medication �Instructions �Recorded �Confirmed �Last Taken �Type
aspirin 81 mg tablet,delayed 81 mg PO DAILY Blood Clot 06/07/19 05/27/25 05/26/25 History
release Prevention/Tx
ferrous sulfate 325 mg (65 mg 325 mg PO QPM Supplement 06/07/19 05/27/25 05/26/25 History
iron) tablet (FeroSul)
levothyroxine 125 mcg tablet 125 mcg PO DAILY Thyroid 06/07/19 05/27/25 05/27/25 History
multivitamin with folic acid 400 1 tab PO DAILY Supplement 06/07/19 05/27/25 05/26/25 History
mcg tablet (Tab-A-Henry)
ropinirole 2 mg tablet 2 mg PO HS Anti-Parkinson Agent 06/07/19 05/27/25 05/26/25 History
acetaminophen 650 mg 650 mg PO Q8HPRN PRN KNEE PAINS 03/09/25 05/27/25 05/05/25 History
tablet,extended release
ammonium lactate 12 % lotion 1 applic topical BID B/L FEET 03/09/25 05/27/25 05/26/25 History
bisacodyl 10 mg rectal suppository 10 mg IL DAILYPRN PRN IF NO BM 03/09/25 05/27/25 Unknown History
(Dulcolax (bisacodyl)) AFTR MOM
calcium acetate 667 mg tablet 667 mg PO AC RENAL 03/09/25 05/27/25 05/26/25 History
cholecalciferol (vitamin D3) 25 50 mcg PO DAILY Supplement 03/09/25 05/27/25 05/26/25 History
mcg (1,000 unit) tablet (Vitamin
D3)
loperamide 2 mg capsule 2 mg PO Q6HPRN PRN DAIRRHEA 03/09/25 05/27/25 05/10/25 History
midodrine 5 mg tablet 5 mg PO TID Blood Pressure 03/09/25 05/27/25 05/26/25 History
omeprazole 20 mg capsule,delayed 20 mg PO DAILY GERD 03/09/25 05/27/25 05/27/25 History
release
sacubitril 24 mg-valsartan 26 mg 1 tab PO BID Heart Failure 03/09/25 05/27/25 05/26/25 History
tablet (Entresto)
sirolimus 1 mg tablet 1 mg PO HS 03/09/25 05/27/25 05/26/25 History
tacrolimus 0.5 mg capsule, 0.5 mg PO DAILY 03/09/25 05/27/25 05/26/25 History
immediate-release
calcium carbonate (Tums) 300 mg PO AC 05/27/25 05/27/25 05/27/25 History
calcium carbonate (Tums) 600 mg PO HS 05/27/25 05/27/25 05/27/25 History
pravastatin 40 mg tablet 40 mg PO HS 05/27/25 05/27/25 05/26/25 History
Review of Systems
-
Unable to Obtain full review of systems at this time due to: Acuity
Vitals / Labs / Diagnostic Testing
Vital Signs
Temp Pulse Resp BP Pulse Ox
98.6 F 108 17 123/98 98
05/28/25 07:22 05/28/25 06:20 05/28/25 06:20 05/28/25 08:26 05/28/25 04:15
Lab Data
05/28/25 02:11
05/28/25 02:11
Microbiology
05/27/25 12:14 Nasal Swab Influenza Types A & B (NATALIIA) - Final
Negative for Influenza A & B, NAAT
Negative results must be combined with clinical observations
and patient history.
Nucleic Acid Amplification test (NAAT)performed on the
[employer] platform.
Diagnostic Testing:
Physical Exam
-
HEENT: Normocephalic, Anicteric, Moist Mucous Membranes and Other (hoarse voice)
Cardiovascular: Regular Rhythm
Respiratory: Rales and Non-Labored Respirations
GI: Soft, Non Distended and Non Tender
Neurology: Awake, Alert, Tremors, Other (confused) and Other (contraction of RLE)
Skin: Warm and Dry
General: Comfortable and Other (NAD)
Assessment
-
Patient is a 75-year-old female with previous history of end-stage renal disease on HD, right lower extremity DVT, right upper extremity DVT, heart failure status post transplant on immunosuppressive's, chronic hypotension on midodrine presenting
from senior care due to increasing confusion. She had notable hallucinations, was not answering appropriately to staff. She was recently admitted to [facility] back in March for cellulitis. She has a history of poor access: Has a left
upper extremity fistula that is no longer working, she has active right upper extremity blood clots, she has a tunneled HD catheter in her right groin that has been used for the past year with active clot, she has a triple-lumen CVC placed in her
left Fem for access. She is a DNR but no clear advanced directives are known. Ongoing confusion noted, she does not contribute meaningful HPI or ROS. CXR showing CHF but possible PNA cannot be excluded, we are consulted for evaluation.
Acute on chronic CHF exacerbation w/ volume overload
Pulmonary edema on CXR
Compressive atelectasis of RLL possible PNA
Confusion/TME
Anemia, acute on chronic --unknown etiology
Tunneled RLE Shiley with active clot
RUE DVT
Failed LUE fistula
Conditions present PERSONAL ASSISTANT
DVT of femoral vein of right lower extremity
ESRD
ACC/AHA stage B congestive heart failure/ICM s/p Heart transplant 2015
CAD
Bundle branch block, right
Thrombosis due to vascular prosthetic devices, implants and grafts
Hypothyroidism
DM
Dysphagia
Restless Leg Syndrome
L radial fracture 2023
Closed fracture dislocation of right ankle
Cholecystectomy
Plan
No oxygen was needed on admission, currently saturating >90% on RA
Prior history of lung disease is NOT noted, she is not known to be on home O2
Suspect patient has acute HF with proBNP >65626
CXR/CT obtained indicating possible RLL consolidation
No prior films for comparisons
Can obtain CT chest for clarity
In absence of fever, WBC--less likely infection
But would have speech r/o aspiration risk
Obtain baseline cultures
PCT negative, can likely stop antibiotics
No prior ECHO results are available for review
She has history of CHF s/p transplant
Continue transplant meds
Renal following for HD and volume removal
Chronic hypotension noted, but unclear if her cuff pressures on her L thigh are accurate
She is a vasculopath, no good access should her Shiley fail
This is also at risk for numerous infection in an already immune compromised patient
Overall, her prognosis seems exceedingly poor. She is currently DNR.
I would encourage goals of care discussions with the family especially if she is no longer to receive HD.
Her current access in her right groin is precarious as it is
I discussed this case with hospitalist service
We will follow
Diagnostic Data
Chest X-Ray 05/27/25: Findings suggest congestive heart failure/pulmonary edema. Consolidation in the right lower lobe could be pneumonia versus compressive atelectasis. There is a widening of superior mediastinum. Patient has difficulty cooperating
with positioning which may be the etiology.
Head CT: There are moderate changes of cortical atrophy and chronic ischemic disease
Right Upper Extremity Venous Ultrasound: There is no evidence of deep venous thrombosis proximal to the elbow. There is occlusive clot in the mid and distal cephalic vein, and nonocclusive clot in the cephalic vein
PFT's:
Reports and relevant images were personally reviewed.
Total time spent on this consultation __75__ minutes which includes review of history, physical exam, medications, laboratory data, personal review of imaging, extensive review of outpatient records, discussion with care team and respiratory therapy.
--- NOTE | 2025-05-28 09:46 | W.PN.CARDCBS ---
Today's Communication / Plan
-
Patient presented with change in mental status and remains lethargic, head CT without acute abnormalities noted
She has history of heart transplant in 2015 at [facility]
Continue management of heart failure with HD as per nephrology. proBNP greater than 27,000 on admission. Holding Entresto
Echo is pending
Continue midodrine 5 mg 3 times daily for blood pressure support.
Hemoglobin slowly coming down and 7.3 May 28, 2025. Consider transfusion
Heme test stool
TSH was 35, patient was on Synthroid as outpatient defer to primary service for adjustment.
Continue Prograf and CellCept for history of heart transplant
Attempt to obtain records from [facility] transplant team
Impression / Plan
-
.
PCP Dr. Francisco Pickard
Cardiology: [facility] transplant team
Impression:
Presented with change in mental status including hallucinations
Anasarca
Acute HF unknown EF
Acute on chronic anemia
Elevated TSH
Recent admission for RLE DVT and anemia 03/20/2025 until 03/24/2025
ESRD on HD
CAD
s/p heart transplant at [facility] due to ischemic CM 2015
IDDM
HTN
HLD
Hypothyroidism with elevated TSH
Chronic hypotension on midodrine
Plan:
Patient presented with change in mental status and remains lethargic, head CT without acute abnormalities noted
She has history of heart transplant in 2016 at [facility]
Continue management of heart failure with HD as per nephrology. proBNP greater than 27,000 on admission. Holding Entresto
Echo is pending
Continue midodrine 5 mg 3 times daily for blood pressure support.
Hemoglobin slowly coming down and 7.3 May 28, 2025. Consider transfusion
Heme test stool
TSH was 35, patient was on Synthroid as outpatient defer to primary service for adjustment.
Continue Prograf and CellCept for history of heart transplant
Attempt to obtain records from [facility] transplant team
Discussed with nursing.
Progress Note - Senior Stereo Compiler Team Lead
Subjective
Date of Service: May 28, 2025
Pt seen and examined. No complaints. No chest pain or shortness of breath however is lethargic and not oriented.
Objective
Labs:
05/28/25 02:11
05/28/25 02:11
Labs
Hgb 7.3 g/dL (12.0-16.0) L 05/28/25 02:11
Hct 22.8 % (37.0-47.0) L 05/28/25 02:11
Plt Count 252 10^3/uL (130-400) 05/28/25 02:11
Sodium 137 mmol/L (135-145) 05/28/25 02:11
Potassium 3.6 mmol/L (3.5-5.1) 05/28/25 02:11
BUN 19 mg/dl (7-17) H 05/28/25 02:11
Creatinine 1.7 mg/dL (0.6-1.0) H 05/28/25 02:11
Glucose 118 mg/dl (70-99) H 05/28/25 02:11
Vital Signs and I&O:
Vital Signs
Temp Pulse Resp BP Pulse Ox
98.6 F 108 17 123/98 98
05/28/25 07:22 05/28/25 06:20 05/28/25 06:20 05/28/25 08:26 05/28/25 04:15
Vital Signs
Temp Pulse Resp BP Pulse Ox
98.6 F 108 17 123/98 98
05/28/25 07:22 05/28/25 06:20 05/28/25 06:20 05/28/25 08:26 05/28/25 04:15
Intake & Output
05/26/25 05/27/25 05/28/25 05/29/25
06:59 06:59 06:59 06:59
Output Total 0 / 0
Balance 0 / 0
Physical Exam
Physical Exam
General: No acute distress, lethargic not oriented
Neck: Negative JVD
Heart: Regular, Negative S3 positive S1/S2, Negative S4, No murmur
Lungs: CTA b/l, negative wheezes/rales/rhonchi
Abd: Positive BS, NT/ND, neg rebound/rigidity/guarding
Ext: Negative cyanosis/clubbing/edema
Neuro: nonfocal
--- NOTE | 2025-05-28 09:55 | CM ---
Initial Assessment Completed By ZAIDA Alexander.
Patient lives at [facility] since February 2025, needs assistance with all ADL's, is bedbound, and receives HD MWF w/ right groin JOHANA. RN stated that patient is here due to missing dialysis at the center because she was confused so received
dialysis last night here in IMU.
Patient's speech is garbled and Medical Team continues to monitor.
PCP: Claribel Inman
Pharmacy: [facility].
PLAN: Return to [facility].
--- NOTE | 2025-05-28 11:42 | W.PN.NEPH.PH ---
Today's Communication / Plan
-
HD tomorrow
Assessment/Plan
-
IMP:
Right LE DVT- catheter associated
right cephalic vein thrombus
ESRD [facility]- MWF right femoral CVC
RUE cephalic thrombus
DM2
cardiomyopathy, Heart Transplant 2016
hypotension on midodrine
Hypothyroidism
CAD
GERD
HLD
mental status change
dysfunctional LUE AVG, left subclavian stent
Plan:
HD tomorrow
she is volume overloaded, but UF may be difficult with hypotension
continue midodrine
eliquis for RLE DVT
wean levophed
abx per primary team
await echo
-
-
Date of Service: May 28, 2025
CC / HPI / ROS
-
Chief Complaint:
ESRD
History of Present Illness:
hgb low 7.3
BP stable today but on midodrine and levophed gtt
tolerated HD yesterday
on Abx for PNA
Review of Systems:
no CP/SOB
answers questions
Labs
-
Labs:
WBC 9.0 10^3/uL (4.8-10.8) 05/28/25 02:11
RBC 2.30 10^6/uL (4.20-5.40) L 05/28/25 02:11
Hgb 7.3 g/dL (12.0-16.0) L 05/28/25 02:11
Hct 22.8 % (37.0-47.0) L 05/28/25 02:11
Plt Count 252 10^3/uL (130-400) 05/28/25 02:11
Sodium 137 mmol/L (135-145) 05/28/25 02:11
Potassium 3.6 mmol/L (3.5-5.1) 05/28/25 02:11
Chloride 100 mmol/L (98-107) 05/28/25 02:11
Carbon Dioxide 27 mmol/L (22-30) 05/28/25 02:11
BUN 19 mg/dl (7-17) H 05/28/25 02:11
Creatinine 1.7 mg/dL (0.6-1.0) H 05/28/25 02:11
eGFR 30.89 05/28/25 02:11
Glucose 118 mg/dl (70-99) H 05/28/25 02:11
Calcium 8.1 mg/dl (8.4-10.2) L 05/28/25 02:11
Phosphorus 2.5 mg/dl (2.5-4.5) 05/28/25 02:11
Umv-H-Deboahhxsud Pept > 49825 pg/ml 05/27/25 14:22
Albumin 3.2 g/dl (3.5-5.0) L 05/27/25 12:36
Physical Exam
-
Vital Signs:
Vital Signs
Temp Pulse Resp BP Pulse Ox
97.7 F 108 17 123/98 98
05/28/25 11:13 05/28/25 06:20 05/28/25 06:20 05/28/25 08:26 05/28/25 04:15
Cardiovascular:: Regular rate and rhythm
Respiratory:: Bilateral: Coarse
Lung Excursion:: Normal
Abdomen:: Nontender and Soft
Bowel Sounds:: Normal
Extremity Edema:: +1: Bilateral:
[2025-05-28] MEDS: LEVOTHROID 90 MCG IV (11:56)
--- NOTE | 2025-05-28 12:11 | PTOTSP ---
Dysphagia Evaluation:
Given PMH (cardiac hx) and altered mental status, pt presents w/ chronic and acute risk factors for dysphagia. Patient with subtle signs concerning for aspiration including throat clear x1 as trials progressed with puree and 1x delayed coughing
after pureed trials.
Recommendations:
1. NPO
2. Medications crushed in puree.
4. ARHP: Single straw sips sparingly, full supervision/assistance
5. F/U w/ ST to determine tolerance in diet level advancements pending improvement in altered mental status/ORALIA and if instrumental swallow testing warranted
[2025-05-28 12:21] LABS: Cortisol, Random 30.8 ug/dl
--- NOTE | 2025-05-28 15:15 | PN.CDI ---
Addendum entered and electronically signed by Dariel Berg MD 05/28/25 16:17:
Cardiogenic shock
Original Note:
CDI
- -
CDI:
Physician Documentation Request
Admit Date: 05/27/25 16:29
Dear Doctor Morena,
Please review the following and provide your response in the progress notes.
Current documentation includes a diagnosis of hypotension.
Clinical Indicators:
Pt admitted for Change in Mental Status, TME, suspect multi-factorial related to Volume Overload, Possible Pneumonia, heart failure, hypoxia, Hypothermia and Hypothyroidism.
05/28 Update: '~ 1 am - Asked to see patient for hypotension. Pt BP 59/45, HR 84, resp 21, 95% on room air. Pt w/fluid overload, HD patient. Started on Norepinephrine 2 mcg/min, titrate to keep SBP >90.
Pt w/hypoglycemia overnight, treated as per protocol.'
05/28 Levophed started at 4mcg/min at 01:14am, noted to be 8mcg/min at 07:00am.
05/28 Progress Note: ' Difficult to obtain accurate BP readings, was started on Levophed over night ...Acute on Chronic systolic heart failure/ Ischemic Cardiomyopathy s/p Heart Transplant - 2016
With multiple organ failure.'
Please clarify which of the following is the most likely etiology of the above symptoms and treatment rendered:
Cardiogenic shock
Other Shock ( please specify)
Hypotension Only
Other
Use of terms such as suspected, likely, concern for, or probable (associated with a specific diagnosis that is being evaluated, monitored, or treated as if it exists) are acceptable and can be coded in the inpatient setting, when documented at the
time of discharge.
Thank you,
Margie Bustos RN, BSN
CDI Specialist
[facility] [facility]
Please use your independent medical judgment in providing your response.
--- NOTE | 2025-05-28 15:20 | PTCARENOTE ---
Assumed care of Pt at shift change, Pt resting comfortably in bed. Continues on 8mcg/hr LEVO infusing into L femoral central line; AAO x 1, can follow commands at times; Slurred/garbled speech; Able to take meds whole in applesauce; Denies pain;
Wound care performed on R lateral ankle. Will continue to monitor and assess.
[2025-05-28 17:49] LABS: Glucose - Point of Care 94 mg/dl (70-99)
[2025-05-28 19:09] LABS: Hepatitis B Surface Antigen Negative (Negative)
[2025-05-28] MEDS: TYLENOL 650 MG PO (20:17)
[2025-05-28] MEDS: STERILE WATER FOR INJECTION 10 ML IV (20:18)
[2025-05-28] MEDS: REQUIP 2 MG PO (20:18)
[2025-05-28] MEDS: RAPAMUNE 1 MG PO (20:18)
[2025-05-28] MEDS: ROCEPHIN 1000 MG IV (20:18)
[2025-05-29] VITALS (52 sets, daily range): BP systolic 60–151; BP diastolic 32–109; BMI 23.1
[2025-05-29 01:16] LABS: Glucose - Point of Care 120 mg/dl (70-99)
[2025-05-29] MEDS: LEVOPHED 250 IV ×2 (04:09→12:03)
[2025-05-29] MEDS: SYNTHROID 125 MCG PO (05:40)
--- NOTE | 2025-05-29 05:48 | PTCARENOTE ---
Cared for pt overnight. very difficult ro obtain accurate BP, [employer]ch aware, order for ok to take BP in L forearm. Continues to be on 8 of levo. Despite bp being low pt was awake, alert and most conversive that i have seen her. pt is coughing more.
continues to be pale, monitoring hgb, no signs of bleeding. RLE HD cath. LLE femoral central line. NSR BBB PAC. d10 running. No other assessment changes. will monitor.
[2025-05-29 06:01] LABS: Hematocrit 24.2 % (37.0-47.0); Hemoglobin 7.7 g/dL (12.0-16.0); Mean Corp Hgb Conc. 31.8 g/dL (33.0-37.0); Mean Corpuscular Volume 98.8 fL (81.0-99.0); Platelet Count 231 10^3/uL (130-400); Red Cell Dist. Width 16.6 % (11.5-14.5)
[2025-05-29 06:18] LABS: Glucose - Point of Care 96 mg/dl (70-99)
[2025-05-29 07:25] LABS: Carbon Dioxide 26 mmol/L (22-30); Chloride 99 mmol/L (98-107); Potassium 3.6 mmol/L (3.5-5.1); Sodium 132 mmol/L (135-145)
[2025-05-29 07:32] LABS: Nucleated Red Blood Cells % 0.8 %
--- NOTE | 2025-05-29 08:35 | W.PN.CARDCBS ---
Today's Communication / Plan
-
Maximize volume removal on dialysis
Continue midodrine for hypotension
Continue to supplement levothyroxine
Impression / Plan
-
.
PCP Dr. Francisco Pickard
Cardiology: [place] transplant team
Impression:
Presented with change in mental status including hallucinations
Anasarca
Acute HF unknown EF
Acute on chronic anemia
Elevated TSH
Recent admission for RLE DVT and anemia 03/20/2025 until 03/24/2025
ESRD on HD
CAD
s/p heart transplant at [place] due to ischemic CM 2015
IDDM
HTN
HLD
Hypothyroidism with elevated TSH
Chronic hypotension on midodrine
Plan:
Largely unchanged from cardiac standpoint.
She does not seem excessively lethargic today, probably better than yesterday.
Entresto remains on hold given hypotension
Optimization of GDMT very limited by hypotension and end-stage renal disease.
No further changes recommended at present from cardiac standpoint.
Hemoglobin is stable.
Progress Note - Jack Machine Operator
Subjective
Date of Service: May 29, 2025:
75-year-old woman admitted with change in mental status from [facility]. Evidence of heart failure by exam and proBNP of greater than 27,000, end-stage renal disease on hemodialysis, with history of heart transplant at [place] in 2016.
PMH: Orthotopic heart transplant 2016, end-stage renal disease, diabetes, hypertension, hyperlipidemia, hypothyroidism, now chronically hypotensive on midodrine
Current meds: D10 at 30 mL an hour, ceftriaxone, doxycycline, subcu heparin, aspirin 81 mg a day, midodrine 5 mg 3 times daily, Requip, sirolimus 1 mg daily, tacrolimus 0.5 mg daily, norepinephrine, levothyroxine 90 mcg daily
Blood pressure 93/38, pulse is 100 respiratory rate is 15, afebrile, weight is 61.1 kg, was 58.7 kg yesterday, 61.9 kg on admission, seems a little brighter than by report yesterday. Breath sounds diminished in bases, systolic murmur JVD modestly
elevated, regular rate and rhythm abdomen benign, with 1+ edema
Echo 05/28/2025: EF 35-40% global hypokinesis anteroseptal dyskinesis mild LVH, mild MR, moderate-severe TR, pulmonary artery systolic pressure is 64 mmHg
ECG: Sinus rhythm right bundle low voltage
Head CT: Cortical atrophy and chronic ischemic changes
Right upper extremity venous ultrasound: Occlusive clot mid and distal cephalic vein, nonocclusive clot proximal cephalic vein
Chest x-ray cardiomegaly, vascular congestion, wide mediastinum, stent in region of subclavian vein/artery
Hemoglobin 7.7, platelets 231, sodium 132, proBNP was greater than 27,000
Objective
Labs:
05/29/25 05:16
05/29/25 05:16
Labs
Hgb 7.7 g/dL (12.0-16.0) L 05/29/25 05:16
Hct 24.2 % (37.0-47.0) L 05/29/25 05:16
Plt Count 231 10^3/uL (130-400) 05/29/25 05:16
Sodium 132 mmol/L (135-145) L 05/29/25 05:16
Potassium 3.6 mmol/L (3.5-5.1) 05/29/25 05:16
BUN 19 mg/dl (7-17) H 05/28/25 02:11
Creatinine 1.7 mg/dL (0.6-1.0) H 05/28/25 02:11
Glucose 118 mg/dl (70-99) H 05/28/25 02:11
Vital Signs and I&O:
Vital Signs
Temp Pulse Resp BP Pulse Ox
36.2 C 100 15 91/38 95
05/29/25 07:22 05/29/25 06:00 05/29/25 06:00 05/29/25 06:00 05/28/25 23:09
Vital Signs
Temp Pulse Resp BP Pulse Ox
36.2 C 100 15 91/38 95
05/29/25 07:22 05/29/25 06:00 05/29/25 06:00 05/29/25 06:00 05/28/25 23:09
Intake & Output
05/27/25 05/28/25 05/29/25 05/30/25
07:59 07:59 07:59 07:59
Intake Total 590 / 590
Output Total 0 / 0
Balance 0 / 0 590 / 590
Physical Exam
Physical Exam
See above
[2025-05-29] MEDS: LEVOTHROID 90 MCG IV (08:49)
[2025-05-29] MEDS: VIBRAMYCIN 260 MG IV (08:50)
[2025-05-29] MEDS: PROGRAF 0.5 MG PO (08:50)
[2025-05-29] MEDS: HEPARIN 5000 UNITS SC (08:54)
[2025-05-29] MEDS: ASPIR LOW (ENTERIC COATED) 81 MG PO (08:56)
--- NOTE | 2025-05-29 09:02 | W.PN.PUL3 ---
Today's Communication / Plan
-
She remains stable on RA, no fever/leukocytosis
Culture negative thus far, PCT negative- discontinued abx
Ongoing HD per renal with volume removal
Overall prognosis poor in severe vasculopathy w/ tenuous IV access, GOC discussions recommended
No further recs from our standpoint, we will sign off at this time--please call with questions
Assessment
-
Patient is a 75-year-old female with previous history of end-stage renal disease on HD, right lower extremity DVT, right upper extremity DVT, heart failure status post transplant on immunosuppressive's, chronic hypotension on midodrine presenting
from [facility] due to increasing confusion. She had notable hallucinations, was not answering appropriately to staff. She was recently admitted to [facility] back in March for cellulitis. She has a history of poor access: Has a left
upper extremity fistula that is no longer working, she has active right upper extremity blood clots, she has a tunneled HD catheter in her right groin that has been used for the past year with active clot, she has a triple-lumen CVC placed in her
left Fem for access. She is a DNR but no clear advanced directives are known. Ongoing confusion noted, she does not contribute meaningful HPI or ROS. CXR showing CHF but possible PNA cannot be excluded, we are consulted for evaluation.
Acute on chronic CHF exacerbation w/ volume overload
Pulmonary edema on CXR
Compressive atelectasis of RLL possible PNA
Confusion/TME
Anemia, acute on chronic --unknown etiology
Tunneled RLE Shiley with active clot
RUE DVT
Failed LUE fistula
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
DVT of femoral vein of right lower extremity
ESRD
ACC/AHA stage B congestive heart failure/ICM s/p Heart transplant 2015
CAD
Bundle branch block, right
Thrombosis due to vascular prosthetic devices, implants and grafts
Hypothyroidism
DM
Dysphagia
Restless Leg Syndrome
L radial fracture 2023
Closed fracture dislocation of right ankle
Cholecystectomy
Plan
No oxygen was needed on admission, currently saturating >90% on RA
Prior history of lung disease is NOT noted, she is not known to be on home O2
Suspect patient has acute HF with proBNP >16223
CXR/CT obtained indicating possible RLL consolidation
No prior films for comparisons
In absence of fever, WBC--less likely infection
But would have speech r/o aspiration risk
Baseline cultures--negative thus far
PCT negative, can likely stop antibiotics, discontinued
Observe off for now
No prior ECHO results are available for review
She has history of CHF s/p transplant
Continue transplant meds
Renal following for HD and volume removal
Chronic hypotension noted, but unclear if her cuff pressures on her L thigh are accurate
She is a vasculopath, no good access should her Shiley fail
This is also at risk for numerous infection in an already immune compromised patient
Overall, her prognosis seems exceedingly poor. She is currently DNR.
I would encourage goals of care discussions with the family especially if she is no longer to receive HD.
Her current access in her right groin is precarious as it is
I discussed this case with hospitalist service
Diagnostic Data
Chest X-Ray 05/27/25: Findings suggest congestive heart failure/pulmonary edema. Consolidation in the right lower lobe could be pneumonia versus compressive atelectasis. There is a widening of superior mediastinum. Patient has difficulty cooperating
with positioning which may be the etiology.
Head CT: There are moderate changes of cortical atrophy and chronic ischemic disease
Right Upper Extremity Venous Ultrasound: There is no evidence of deep venous thrombosis proximal to the elbow. There is occlusive clot in the mid and distal cephalic vein, and nonocclusive clot in the cephalic vein
PFT's:
Reports and relevant images were personally reviewed.
Total time spent on this consultation __50__ minutes which includes review of history, physical exam, medications, laboratory data, personal review of imaging, extensive review of outpatient records, discussion with care team and respiratory therapy.
Subjective Data
-
Date of Service:
Date of Service: May 29, 2025
Chief Complaint: Pulmonary Follow Up
Subjective:
Remains stable on RA, no new complaints
Still confused
Objective Data
Data Reviewed
Vital Signs / I&O / Oxygen:
Vital Signs
Temp Pulse Resp BP Pulse Ox
97.1 F 100 15 91/38 95
05/29/25 07:22 05/29/25 06:00 05/29/25 06:00 05/29/25 06:00 05/28/25 23:09
Intake and Output
05/28/25 05/29/25 05/30/25
06:59 06:59 06:59
Intake Total 590 / 590
Output Total 0 / 0
Balance 0 / 0 590 / 590
SaO2 95
Physical Exam
General: Comfortable and Other (NAD)
HEENT: Normocephalic, Anicteric, Moist Mucous Membranes and Other (hoarse voice, edentulous)
Cardiovascular: S1-S2 and Regular Rhythm
Respiratory: Crackles and Non-Labored Respirations
GI: Soft, Non Distended and Non Tender
Neurology: Awake, Alert, Other (contracture of RLE) and Other (confused, garbled speech)
Skin: Warm, Dry and Good Color
Labs/Micro/Reports
Lab Data
05/29/25 05:16
05/29/25 05:16
Microbiology
05/28/25 02:11 Nose MRSA Screen - Final
No Methicillin Resistant Staphylococcus aureus isolated.
05/27/25 15:42 Blood/Venous Blood Culture - Preliminary
No Growth in 24 hours- Final report to follow
05/27/25 12:36 Blood/Venous Blood Culture - Preliminary
No Growth in 24 hours- Final report to follow
05/27/25 12:14 Nasal Swab Influenza Types A & B (NATALIIA) - Final
Negative for Influenza A & B, NAAT
Negative results must be combined with clinical observations
and patient history.
Nucleic Acid Amplification test (NAAT)performed on the
[employer] ID NOW platform.
--- NOTE | 2025-05-29 09:09 | W.PN.HOSP.TC ---
Today's Communication/Plan
-
.
Assessment / Plan
Assessment / Plan
Physical Exam
General: Appears Chronically Ill, she seems more alert
HEENT: Anicteric and Other (Periorbital edema)
Respiratory: Other (Coarse breath sounds throughout, limited)
Cardiac: S1/S2, Murmur, tachycardia
GI: Soft and Non Tender
Rectal: No Peralta
Musculoskeletal: Other (Pitting Edema bilateral lower extremities)
Skin: dependent edema on right side of body ( limbs/ face/ abdomen/ groin)
Neuro: seems more alert, following commands
Psych: Calm
A/P
#Change in Mental Status, TME, suspect multi-factorial related to hypothyroid, pulmonary atelectasis , Volume Overload, heart failure,
Mentation seems to improve
CT head moderate changes of cortical atrophy and chronic ischemic disease
Hard to known baseline but seems poor at times.
Difficult to obtain accurate BP readings, on Levophed
c/w IV Synthroid for another dose today, check TSH in am
Normal cortisol level in am
-Patient previously on Advanced Dysphagia diet per [facility] records - Consulted Speech
#ESRD with volume overload
#ESRD on HD MoWeFr
Using right femoral line
#Suspect bilateral pulmonary Atelectasis
Pneumonia ruled out
negative procal
Negative blood culture
-will stop ceftriaxone and doxycycline
Speech evaluation
# Failure to thrive
# DVT
US showed right occlusive clot in the mid and distal cephalic vein, and nonocclusive clot in the cephalic vein
Hypothyroidism, symptomatic with hypothermia, hypoglycemia, depressed mentation
-Medication review revealed patient was being given calcium supplements 30 minutes after administration of levothyroxine which was likely preventing absorption
-Started levothyroxine IV, recheck TSH in AM
#Anemia of chronic disease
Stable HGB
Received epoetin 05/28
Hyponatremia
Chronic Hypotension
-Resumed midodrine
Check cortisol
Acute on Chronic systolic heart failure/ Ischemic Cardiomyopathy s/p Heart Transplant - 2016
With multiple organ failure
-Resume sirolimus and tacrolimus when able to take oral meds
On pressure support
Coronary Artery Disease
-Resumed aspirin and statin
Right Lower Extremity DVT - March 2025
-Apixaban is no longer listed on patient's medication list - Unclear why it was stopped
-Given her worsening anemia will continue off Apixaban for now
DVT proph: SC Heparin
Code Status: DNR / DNI
Total time spent to see the patient, examine the patient, review data and lab results, discuss treatment plan with patient, nursing staff around 55 minutes
Anticipated Discharge: > 48 hours
Subjective/Interval History
-
Date of Service: May 29, 2025
She seems more alert
Objective Data
-
Labs:
Laboratory Results
05/29/25
05:16
WBC 10.5
Hgb 7.7 L
Hct 24.2 L
Plt Count 231
Sodium 132 L
Potassium 3.6
Chloride 99
Carbon Dioxide 26
Vital Signs:
Vital Signs
Temp Pulse Resp BP Pulse Ox
97.1 F 100 15 91/38 95
05/29/25 07:22 05/29/25 06:00 05/29/25 06:00 05/29/25 06:00 05/28/25 23:09
I&O
05/28/25 05/29/25 05/30/25
06:59 06:59 06:59
Intake Total 590 / 590
Output Total 0 / 0
Balance 0 / 0 590 / 590
--- NOTE | 2025-05-29 11:35 | CM ---
Following up on Patient. RN stated that patient's blood pressure is not so great, but overall, not ready for discharge.
PLAN: Return to [facility] when stable.
[2025-05-29 11:46] LABS: Glucose - Point of Care 121 mg/dl (70-99)
[2025-05-29] MEDS: D10W 1000 IV (11:58)
--- NOTE | 2025-05-29 12:51 | W.PN.UPDATE ---
Update Note
Progress Note Update
Addendum
I talked with daughter Rachel who is the primary contact. Discussed hospice/comfort measures as patient was noticed to be moaning and very uncomfortable at times. I recommended to stop dialysis. Patient had told daughter that she was ready to
stop treatments. Daughter seems agreeable to comfort care/hospice. Daughter will reach out back to me after she discusses the issue with her family.
End
--- NOTE | 2025-05-29 14:23 | W.PN.UPDATE ---
Update Note
Progress Note Update
pt to go on hospice. HD discontinued/ renal will sign off
--- NOTE | 2025-05-29 14:31 | PTCARENOTE ---
Assumed care of pt this am after walking rounds with night RN. Pt is arousable, garbled speech, but oriented x 2 with confused thoughts. Speech here this am to do bedside FEES exam and pt did poorly with gross aspiration, please review Speech
therapy note. Pt's BPs are an ongoing challenge since admission. {Pt with multiple clots in extremities and non functioning LUArm AV fistula). attempts with automatic and manual BPs obtained. Pt is alert, conversing to simple conversation and
answering staff appropriately, but does drift into confused conversation. Levophed infusing at 8mcg/min. Discussed plan of care and BP challenges with hospitalist and nephrology. Concerns with difficulty with BPs and ongoing HD treatments Dr. Berg
plan to discuss plan of care with daughter and approach Hospice conversation this afternoon. HD initiated but discontinued after approx 45 mins, per MD order.
--- NOTE | 2025-05-29 14:35 | W.PN.NEPH.HD ---
Assessment
-
For clarification there is no official hospice but from a renal standpoint difficult to manage blood pressure and unable to proceed with ultrafiltration for hypotension. At this time she is not a dialysis candidate unless aggressive measures are
met with pressor support and/or CVVHD as I feel this is futile.
I will discontinue hemodialysis today and await official hospice set up.
Progress Note - Hemodialysis
-
Date of Service: May 29, 2025
Duration: 30 minutes and 3 hours
Potassium Bath: 3
Calcium Bath: 2.5
Opti-Dialyzer: 160
Ultrafiltration: Other (3kg)
Blood Flow: 400
Dialysate Flow: 600
Heparin: 500x2
EPO: 27141 units
[2025-05-29] MEDS: RETACRIT 10000 UNITS IV (14:52)
[2025-05-29] MEDS: HEPARIN 500 UNITS IV (14:52)
[2025-05-29] MEDS: HEPARIN 2000 UNITS INTRACATH (14:53)
--- NOTE | 2025-05-29 15:26 | W.PN.UPDATE ---
Update Note
Progress Note Update
discussion with Rachel about prognosis and new development with aspiration risk and unable to do HD optimally with erratic bp and hypotension. Family will be electing hospice and will formalize with Dr Berg. HD officially discontinued
--- NOTE | 2025-05-29 15:36 | W.PN.UPDATE ---
Addendum entered and electronically signed by Marcus Diaz, DO 05/29/25 15:41:
++++++++++++++++++++++++++++DISREGARD THIS NOTE. PLACED ON WRONG PT ++++++++++++++++++++++++++++++++++
Addendum entered and electronically signed by Marcus Diaz, DO 05/29/25 15:40:
++++++++++++++++++++++++++++DISREGARD THIS NOTE. PLACED ON WRONG PT ++++++++++++++++++++++++++++++++++
Original Note:
Update Note
Progress Note Update
updated at bedside of renal prognosis stating there is some improvement with urine output and pressor needs. No underpresser hand needed at this time. all questions answered. spoke with ICU team in follow up. agree with LR and serial labs
--- NOTE | 2025-05-29 16:52 | CM ---
Following up on Patient. Medical Team consulted Case Management for Hospice in the afternoon. ZAIDA Alexander asked Hospice to reach out to the daughter Rachel this weekend to discuss.
ZAIDA Alexander left a message for the dtr to say that Hospice Cost Accountant should be given her a call to discuss.
PLAN: Discuss about Hospice this weekend. Referral made.
--- NOTE | 2025-05-29 17:31 | PTCARENOTE ---
medical team discussed plan of care with daughter clayton and pt. Plan is to stop HD, minimize meds and move towards Hospice admission. Primary . aware of low BPs and we will continue with levo at 8mcg/min and not transfer to ICU even with SBP
<90. Pt is alert and talkative throughout the day, no changes in LOC. Pt aware HD treatment is discontinued and this will lead to end of life care. Hospice consult has been placed.
--- NOTE | 2025-05-29 18:11 | HOSPNOTE ---
Spoke with daughter and she is in agreement with comfort care. She is in agreement with stopping Levo and fluids and stop dialysis. Attending and CM aware. We will speak with daughter again in the am 05/30.
[2025-05-29 18:28] LABS: Glucose - Point of Care 135 mg/dl (70-99)
--- NOTE | 2025-05-29 19:42 | PTCARENOTE ---
Levophed had continued at 8mcg which is max for IMU level of care. BPs borderline for this dose . Pt is not to transfer to ICU per MD order today as family and pt have stopped HD and most meds. MD orders were to continue levo, prograf and other
essential meds. Family aware of aspiration risks. Hospice note refers to comfort measures. Report given to night RN and following up with House cover SCALE MODEL MAKER
[2025-05-29] MEDS: HEPARIN SC (20:40)
--- NOTE | 2025-05-29 22:14 | PTCARENOTE ---
Case discussed with ANDRES. Comfort measures orders obtained. Assessments as documented. Monitoring equipment removed. Pt appears comfortable. Q2T schedule in place to prevent skin breakdown. Hygiene care performed. Bed alarm in place for pt safety.
Care ongoing.
[2025-05-29 23:28] LABS: Glucose - Point of Care 117 mg/dl (70-99)
[2025-05-30 03:54] VITALS: BP 116/84
[2025-05-30 07:00] VITALS: BP 83/67
[2025-05-30 07:01] LABS: TSH 16.70 uIU/ml (0.47-4.68)
[2025-05-30] MEDS: ZOFRAN 4 MG IV (08:25)
[2025-05-30] MEDS: DILAUDID 0.25 MG IV ×3 (08:32→20:10)
--- NOTE | 2025-05-30 09:48 | W.PN.HOSP.TC ---
Today's Communication/Plan
-
dc to hospice
Assessment / Plan
Assessment / Plan
Physical Exam
General: Ill looking t
HEENT: Anicteric and Other (Periorbital edema)
Respiratory: very limited, rales at bases.
Cardiac: S1/S2, Murmur, tachycardia
GI: Soft and Non Tender
Rectal: No Peralta
Musculoskeletal: Other (Pitting Edema bilateral lower extremities)
Skin: dependent edema on right side of body ( limbs/ face/ abdomen/ groin)
Neuro: Opened eyes to verbal stimuli, did not follow commands.
Psych: lethargic
A/P
# GOC
Patient did not show clinical improvement despite aggressive medical care. d/w family GOC and pt's living wishes. Pt expressed her wish to end her treatments and let go peacefully to her daughter. d/w Family, agreed to seek hospice consult and to
stop pressure support/ blood work/ hemodialysis/ Use Dilaudid for discomfort.
#Change in Mental Status, TME, suspect multi-factorial related to hypothyroid, pulmonary atelectasis , Volume Overload, heart failure,
#ESRD with volume overload
#bilateral pulmonary Atelectasis
# Failure to thrive
# DVT
# Hypothyroidism
#Anemia of chronic disease
#Hyponatremia
#Chronic Hypotension/ CMP/ Cardiogenic shock
#Acute on Chronic systolic heart failure/ Ischemic Cardiomyopathy s/p Heart Transplant - 2016
#Coronary Artery Disease
DVT proph: Comfort care level
Code Status: DNR / DNI
Total time spent to see the patient, examine the patient, review data and lab results, discuss treatment plan with patient, nursing staff around 55 minutes
Anticipated Discharge: Today
Subjective/Interval History
-
Date of Service: May 30, 2025
She did not answer questions, not in respiratory distress
Objective Data
-
Vital Signs:
Vital Signs
Temp Pulse Resp BP Pulse Ox
97.0 F 65 18 83/67 91
05/29/25 23:43 05/30/25 07:00 05/30/25 07:00 05/30/25 07:00 05/30/25 07:00
I&O
05/29/25 05/30/25 05/31/25
06:59 06:59 06:59
Intake Total 590 / 590 1030 / 1030
Balance 590 / 590 1030 / 1030
--- NOTE | 2025-05-30 10:15 | PTCARENOTE ---
Report given to Mariza ROGERS for transfer to room 2126. Patient is on comfort measures, patient was complaining of nausea and dyspnea this morning. Symptoms treated with Zofran and Dilaudid with relief. Patient was able to communicate symptoms, and
answer questions. Completed care provided, oral care and chg bath. Patient is now objectively comfortable with family at bedside. For transfer shortly.
--- NOTE | 2025-05-30 10:45 | PTCARENOTE ---
Received patient transfer from IMU, brought by volunteer. Patient appears comfortably resting, very drowsy right now. Two family members at bedside.
--- NOTE | 2025-05-30 11:31 | CM ---
CM reviewed chart. Pt transferred to [address] [place] [address] for comfort care.
CM will continue to follow.
[2025-05-30 12:00] VITALS: BP 88/55
--- NOTE | 2025-05-30 15:30 | CM ---
Patient seen at bedside with daughter, referral had been sent to [facility] home care, CM updated and sent referral to [facility] hospice. Patient daughter requested contact to Rachel patient daughter and nurse. CM will continue to follow for discharge
planning needs.
Plan; hospice; [facility] pending
--- NOTE | 2025-05-30 16:00 | HOSPNOTE ---
Rec'd referral - previous referral had been sent to Home Care by mistake - TT with Dr No, ZAIDA Singh and ANDRES Headley (Hospice sales administration manager provider) Patient to be admitted to Hospice 05/31/2025 - Spoke on the phone to patient's daughter
Rachel to answer any questions
[2025-05-30] MEDS: BENADRYL 6.25 MG IV (16:32)
[2025-05-30 19:53] VITALS: BP 80/47
[2025-05-31] MEDS: DILAUDID 0.25 MG IV ×2 (04:51→08:27)
[2025-05-31 07:05] VITALS: BP 63/35
[2025-05-31] MEDS: LEVSIN ORAL DROPS 0.125 MG SL (08:21)
[2025-05-31] MEDS: BENADRYL 6.25 MG IV (08:32)
--- NOTE | 2025-05-31 09:54 | W.PN.HOSP.TC ---
Today's Communication/Plan
-
dc to hospice
Assessment / Plan
Assessment / Plan
Physical Exam
General: Ill looking t
HEENT: Anicteric and Other (Periorbital edema)
Respiratory: very limited, rales at bases.
Cardiac: S1/S2, Murmur, tachycardia
GI: Soft and Non Tender
Rectal: No Peralta
Musculoskeletal: Other (Pitting Edema bilateral lower extremities)
Skin: dependent edema on right side of body ( limbs/ face/ abdomen/ groin)
Neuro: Opened eyes to verbal stimuli, did not follow commands.
Psych: lethargic
A/P
# GOC
Patient did not show clinical improvement despite aggressive medical care. d/w family GOC and pt's living wishes. Pt expressed her wish to end her treatments and let go peacefully to her daughter. d/w Family, agreed to seek hospice consult and to
stop pressure support/ blood work/ hemodialysis/ Use Dilaudid for discomfort.
#Change in Mental Status, TME, suspect multi-factorial related to hypothyroid, pulmonary atelectasis , Volume Overload, heart failure,
#ESRD with volume overload
#bilateral pulmonary Atelectasis
# Failure to thrive
# DVT
# Hypothyroidism
#Anemia of chronic disease
#Hyponatremia
#Chronic Hypotension/ CMP/ Cardiogenic shock
#Acute on Chronic systolic heart failure/ Ischemic Cardiomyopathy s/p Heart Transplant - 2016
#Coronary Artery Disease
DVT proph: Comfort care level
Code Status: DNR / DNI
Total discharge time spent to see the patient, examine the patient, review data and lab results, discuss treatment plan with patient, hospice nurse, nursing staff around 65 minutes
Anticipated Discharge: Today
Subjective/Interval History
-
Date of Service: May 31, 2025
required Dilaudid over night for distress
Objective Data
-
Vital Signs:
Vital Signs
Temp Pulse Resp BP Pulse Ox
93.8 F L 72 12 63/35 86
05/31/25 07:05 05/31/25 07:05 05/31/25 07:05 05/31/25 07:05 05/31/25 07:05
I&O
05/30/25 05/31/25 06/01/25
06:59 06:59 06:59
Intake Total 1030 / 1030 0 / 0
Balance 1030 / 1030 0 / 0
--- NOTE | 2025-05-31 09:54 | W.DCSUMMARY ---
Discharge Summary
Discharge Data
Date of Admission: 05/27/25
Date of Discharge: 05/31/25
-
Pending Results: No
Hospital Course
75 years old female with history of cardiomyopathy presented to the hospital with hypotension, hypothermia and depressed mentation. Patient was diagnosed with cardiogenic shock with toxic metabolic encephalopathy. Patient has end-stage renal
disease and they could not do hemodialysis at the [facility] due to hypotension and poor venous access she received intravenous pressure support medication. She was evaluated by conservator artifacts and high speed operator. Few trials to receive effective
hemodialysis were unsuccessful. Patient was noticed to have elevated TSH and was given intravenous thyroid. Her mentation improved to slightly. Patient did not have evidence of acute infection. Patient remained hypotensive and was almost
impossible to monitor her blood pressure due to severe peripheral arterial vascular disease and multiple areas with deep venous thrombosis in multiple peripheral veins in the upper and lower extremities. Goal of care discussed with the family and
patient. Patient had expressed her wishes to be comfort care and to end her treatments. Family decided to seek comfort care and hospice. family met with hospice service. Family was transferred to inpatient hospice.
Discharge Plan
-
Patient Disposition: Hospice - Inpatient DH
Discharge Orders:
Discharge Patient (As Directed); Ordered 05/31/25
Ordered By: Dariel Berg
Discharge Date and Time
Print Language: CUBAN
--- NOTE | 2025-05-31 11:01 | CM ---
Patient for transfer to [facility]/Hospice per charting. Await confirmation of plan from Hospice. CM will continue to follow for discharge planning needs.
Plan; transfer to [facility] hospice with [facility]
== END 2025-05-31 12:29 | disposition hospice, inpatient (51) | DRG 314 ==
LOC: 2 NORTH 16:29
PROVIDERS: Internal Medicine Nephrology; Physician Assistant; Physician Assistant Medical; Radiology Vascular & Interventional Radiology; ADMITTING PHYSICIAN Student in an Organized Health Care Education/Training Program; ATTENDING PHYSICIAN Internal Medicine; CONSULT PHYSICIAN Internal Medicine; CONSULT PHYSICIAN Internal Medicine Cardiovascular Disease; CONSULT PHYSICIAN Specialist; EMERGENCY PHYSICIAN Emergency Medicine; FAMILY PHYSICIAN Family Medicine
PROC: 05JY3ZZ Inspection of Upper Vein, Percutaneous Approach (ICD-10-PCS; 2025-05-27)
PROC: 06HY33Z Insertion of Infusion Device into Lower Vein, Percutaneous Approach (ICD-10-PCS; 2025-05-27)
PROC: 5A1D70Z Performance of Urinary Filtration, Intermittent, Less than 6 Hours Per Day (ICD-10-PCS; 2025-05-27)
DX: T86.22 Heart transplant failure (principal); G92.8 Other toxic encephalopathy; R57.0 Cardiogenic shock; N18.6 End stage renal disease; I50.23 Acute on chronic systolic (congestive) heart failure; I82.611 Acute embolism and thrombosis of superficial veins of right upper extremity; J98.11 Atelectasis; T82.868A Thrombosis due to vascular prosthetic devices, implants and grafts, initial encounter; Z66 Do not resuscitate; Z51.5 Encounter for palliative care; K21.9 Gastro-esophageal reflux disease without esophagitis; D63.1 Anemia in chronic kidney disease; E03.9 Hypothyroidism, unspecified; I25.10 Atherosclerotic heart disease of native coronary artery without angina pectoris; E83.39 Other disorders of phosphorus metabolism; I95.89 Other hypotension; R68.0 Hypothermia, not associated with low environmental temperature; R62.7 Adult failure to thrive; I45.10 Unspecified right bundle-branch block; G25.81 Restless legs syndrome; E78.5 Hyperlipidemia, unspecified; E16.2 Hypoglycemia, unspecified; R13.10 Dysphagia, unspecified; Y83.1 Surgical operation with implant of artificial internal device as the cause of abnormal reaction of the patient, or of later complication, without mention of misadventure at the time of the procedure; Y83.8 Other surgical procedures as the cause of abnormal reaction of the patient, or of later complication, without mention of misadventure at the time of the procedure; Z95.0 Presence of cardiac pacemaker; Z94.1 Heart transplant status; Z87.891 Personal history of nicotine dependence; Z99.2 Dependence on renal dialysis; Z86.718 Personal history of other venous thrombosis and embolism; Z68.23 Body mass index [BMI] 23.0-23.9, adult; Z79.623 Long term (current) use of mammalian target of rapamycin (mTOR) inhibitor; Z79.621 Long term (current) use of calcineurin inhibitor; Z79.82 Long term (current) use of aspirin; Z79.890 Hormone replacement therapy; Z79.899 Other long term (current) drug therapy; Z88.8 Allergy status to other drugs, medicaments and biological substances; Z82.49 Family history of ischemic heart disease and other diseases of the circulatory system; Z11.52 Encounter for screening for COVID-19
CPT/HCPCS: 36556; 36598; 70450; 71046; 76937; 77001; 80048; 80051; 80053; 80197; 82533; 82607; 82728; 82746; 82962; 83540; 83550; 83605; 83735; 83880; 84100; 84145; 84439; 84443; 85025; 85027; 86850; 86900; 86901; 87040; 87070; 87340; 87502; 87811; 92526; 92610; 92612; 93005; 93306; 93971; 96374; 96375; 99285; G0257; P9047; Q5106

== ENCOUNTER 2025-05-31 12:29 | Inpatient (IN) | payer OTHER, SELFPAY ==
[2025-05-31] MEDS: DILAUDID 0.25 MG IV ×2 (13:49→19:46)
[2025-05-31] MEDS: ROBINUL 0.2 MG IV ×2 (13:50→19:45)
--- NOTE | 2025-05-31 15:05 | CHAP ---
Keshia was sleeping comfortably, non-responsive. No family was present. English Division Chair offered prayers at bedside, and provided update to daughter Rachel by phone. Rachel said the family is supporting Keshia with daily visits, and also supporting
one another. She shared that Keshia's giovanna has not been a central part of her life, and no criminal defense attorney visit would be needed, at least at this time. English Division Chair provided emotional and spiritual support to patient and to daughter Rachel through
presence, words of comfort, dialogue, and prayer. Phone number also provided to Rachel, with assurance of our on-going availability. Prayer blanket given. Will continue support through visits 2x week.
--- NOTE | 2025-05-31 15:07 | HOSPNOTE ---
Patient admitted to inpatient level of hospice care. Inpatient for pain management and terminal secretions. Patient appears to be actively dying. Emotional support provided. Hospice will visit daily.
--- NOTE | 2025-05-31 15:31 | CM ---
Patient seen at bedside on . Patient transitioned to [facility] hospice today following meeting with patient family and hospice. Patient was at [facility] prior to admission to . Family present with patient earlier. CM will continue to follow
for discharge planning needs.
Plan; hospice VN; [facility]
[2025-05-31 23:41] VITALS: BP 54/33
[2025-06-01] MEDS: ROBINUL 0.2 MG IV ×2 (00:25→05:03)
[2025-06-01 07:09] VITALS: BP 84/50
[2025-06-01] MEDS: DILAUDID 0.25 MG IV (07:24)
[2025-06-01] MEDS: ATIVAN 0.5 MG PO (07:24)
--- NOTE | 2025-06-01 08:25 | PTCARENOTE ---
Patient observed to be not breathing. No heart tones. Called attending to pronounce. Family not here at this time.
--- NOTE | 2025-06-01 08:46 | W.PN.DEATH ---
Pronouncement of
-
Called to see patient to pronounce.
No spontaneous heart tones or respirations noted.
Patient not responsive to verbal stimuli.
Patient is pronounced .
Time of : 08:34
Date of : 06/01/25
Cause of : Cardiogenic shock, ESRD, discontinued dialysis for hospice care
Family Notified: Yes
--- NOTE | 2025-06-01 08:54 | W.DCSUMMARY ---
Discharge Summary
Discharge Data
Date of Admission: 05/31/25
Date of Discharge: 06/01/25
Total time spent discharging patient (in min): 48
-
Pending Results: No
Hospital Course
Ms. Priest is a 75 years old female with history of cardiomyopathy presented to the hospital with hypotension, hypothermia and depressed mentation. Patient was diagnosed with cardiogenic shock with toxic metabolic encephalopathy. Patient has
end-stage renal disease and they could not do hemodialysis at the senior living due to hypotension and poor venous access she received intravenous pressure support medication. She was evaluated by full stack software engineer and engineering faculty. Few trials to
receive effective hemodialysis were unsuccessful. Patient was noticed to have elevated TSH and was given intravenous thyroid. Her mentation improved slightly. Patient did not have evidence of acute infection. Patient remained hypotensive and was
very challenging to monitor her blood pressure due to severe peripheral arterial vascular disease and multiple areas with deep venous thrombosis in multiple peripheral veins in the upper and lower extremities. Goal of care discussed with the
family and patient. Patient had expressed her wishes to be comfort care and to end her treatments. Family decided to seek comfort care and hospice. Patient was transferred to inpatient hospice. She on the morning of 06/01/2025 at 8:34 AM.
Family was notified by telephone. Primary cause of was cardiogenic shock with secondary cause of end-stage renal disease and having discontinued dialysis for initiation of hospice care.
Discharge Plan
-
Referrals:
Francisco Pickard MD [Family Provider, [facility]]
Prescriptions:
No Action
aspirin 81 MG tablet,delayed release (DR/EC)
81 mg PO DAILY
ferrous sulfate [FeroSul] 325 MG tablet
325 mg PO QPM
levothyroxine 125 MCG tablet
125 mcg PO DAILY
multivitamin with folic acid [Tab-A-Henry] 1 TABLET tablet
1 tab PO DAILY
ropinirole 2 MG tablet
2 mg PO HS
ammonium lactate 12 % Lotion
1 applic TOPICAL BID
loperamide 2 mg Capsule
2 mg PO Q6HPRN PRN (Reason: DAIRRHEA)
midodrine 5 mg Tablet
5 mg PO TID
acetaminophen 650 mg Tablet Extended Release
650 mg PO Q8HPRN PRN (Reason: KNEE PAINS)
sirolimus 1 mg Tablet
1 mg PO HS
bisacodyl [Dulcolax (bisacodyl)] 10 mg Suppository
10 mg [place] DAILYPRN PRN (Reason: IF NO BM AFTR MOM)
omeprazole 20 mg Capsule,Delayed Release(Dr/Ec)
20 mg PO DAILY
tacrolimus 0.5 mg Capsule
0.5 mg PO DAILY
cholecalciferol (vitamin D3) [Vitamin D3] 25 mcg (1,000 unit) Tablet
50 mcg PO DAILY
sacubitril-valsartan [Entresto] 24-26 mg Tablet
1 tab PO BID
calcium acetate 667 mg Tablet
667 mg PO AC
pravastatin 40 mg Tablet
40 mg PO HS
Tums 300 mg (750 mg) Tablet,Chewable
300 mg PO AC
Tums 300 mg (750 mg) Tablet,Chewable
600 mg PO HS
Discharge Date and Time
Print Language: BELARUSIAN
== END 2025-06-01 08:34 | disposition expired | DRG 682 ==
LOC: 2 NORTH 12:29
PROVIDERS: ADMITTING PHYSICIAN Internal Medicine; ATTENDING PHYSICIAN Internal Medicine; FAMILY PHYSICIAN Family Medicine
DX: N18.6 End stage renal disease (principal); G92.8 Other toxic encephalopathy; I42.9 Cardiomyopathy, unspecified; R57.0 Cardiogenic shock; Z99.2 Dependence on renal dialysis